=== PATIENT | female | born 1970 | race Caucasian/White ===

== ENCOUNTER 2016-08-31 09:22 | Inpatient (IN) | payer SELFPAY ==
[2016-08-31] VITALS (11 sets, daily range): BP systolic 131–205; BP diastolic 67–114; PULSE 87–121; RESP 14–32; TEMP 98.6–98.8; O2SAT 91–100
[~2016-08-31] VITALS: Ht 165.1 cm; Wt 75.5 kg
[~2016-08-31 09:22] MED LIST: AYGE5TAB PO
[2016-08-31] MEDS ORDERED: SODIUM CHLORIDE 0.9% FLUSH 10 ML FLUSH IVF PRN (09:30)
[2016-08-31] MEDS ORDERED: methylPREDNISolone SOD SUCC 125 MG/2 ML VIAL IVP ONE (09:30)
[2016-08-31] MEDS ORDERED: MORPHINE SULFATE 4 MG/ML INJ IV PUSH ONE (09:45)
[2016-08-31] MEDS ORDERED: ONDANSETRON HCL 4 MG/2 ML VIAL IV PUSH ONE (09:45)
--- NOTE | 2016-08-31 09:55 | PD ---
HPI . Respiratory distress Chief Complaint: Respiratory Distress Time Seen by Provider: 09:27 Travel History International Travel<30 days: No Contact w/Intl Traveler<30days: No Traveled to known affect area: No History of Present Illness HPI Patient presents by [facility] in respiratory distress. Her distress limits the ability to obtain an H&P. She does report acute respiratory distress that started this morning. She denies any chest pain. She denies any recent illness. She does admit to cocaine use yesterday. She denies any previous similar history. She has no known history of asthma, emphysema or congestive heart failure. [facility] Past Medical History Cardiovascular Problems: Yes (HTN) Hypertension: Yes Tetanus Vaccination: Unknown Influenza Vaccination: No ?: Not LMP: 08/31/16 Past Surgical History Section: Yes Social History Alcohol Use: No Tobacco Use: Yes Substance Use: Yes (COCAINE, LAST USE 08/30/16) Allergies-Medications (Allergen,Severity, Reaction): Coded Allergies: Penicillin (Verified Allergy, Intermediate, CHEST PAIN, 06/13/12) Reported Meds & Prescriptions Reported Meds & Active Scripts Active Aygestin (Norethindrone Acetate) 5 Mg Tab 5 Mg PO DAILY Review of Systems ROS Limitations: Clinical Condition Except as stated in HPI: all other systems reviewed are Neg General / Constitutional: No: Fever, Chills HENT: No: Headaches Cardiovascular: No: Chest Pain or Discomfort, Palpitations Respiratory: Positive: Shortness of Breath Gastrointestinal: Positive: Nausea, No: Vomiting Psychiatric: Positive: Substance Abuse Physical Exam Narrative GENERAL: Patient is pale, cool and clammy and in obvious respiratory distress. SKIN: Cool and clammy. HEAD: Atraumatic. Normocephalic. EYES: Pupils equal and round. Extraocular movements are intact. ENT: No nasal bleeding or discharge. Mucous membranes pink and moist. NECK: Trachea midline. Neck is supple. CARDIOVASCULAR: Tachycardic rate, regular rhythm. RESPIRATORY: Tachypneic. Only able to say one word between breaths. Diffuse expiratory wheezing. GASTROINTESTINAL: Abdomen soft, non-tender, nondistended. MUSCULOSKELETAL: No obvious deformities. No edema. NEUROLOGICAL: Awake and alert. No obvious cranial nerve deficits. Motor grossly within normal limits. Speech limited by respiratory distress. Data Data Last Documented VS Vital Signs Date Time Temp Pulse Resp B/P Pulse Ox O2 Delivery O2 Flow Rate FiO2 08/31/16 12:35 121 32 205/99 100 BiPAP 40 08/31/16 09:24 98.8 Orders Complete Blood Count With Diff (08/31/16 09:28) Comprehensive Metabolic Panel (08/31/16 09:28) B-Type Natriuretic Peptide (08/31/16 09:28) Magnesium (Mg) (08/31/16 09:28) Ckmb (Isoenzyme) Profile (08/31/16 09:28) Troponin I (08/31/16 09:28) Arterial Blood Gas (Abg) (08/31/16 09:28) Iv Access Insert/Monitor (08/31/16 09:28) Electrocardiogram (08/31/16:28) Ecg Monitoring (08/31/16:28) Oximetry (08/31/16:28) Oxygen Administration (08/31/16 09:28) Chest, Single Ap (08/31/16 09:28) Ct Pulmonary Angiogram (08/31/16 09:28) Urinary Catheter Insert/Apply (08/31/16 09:28) Sodium Chloride 0.9% Flush (Ns Flush) (08/31/16 09:30) Methylprednisolone So Succ Inj (Solumedr (08/31/16 09:30) Albuterol-Ipratropium Neb (Duoneb Neb) (08/31/16 09:30) Resp Bipap / Cpap Non Invas Vt (08/31/16 09:28) Ondansetron Inj (Zofran Inj) (08/31/16 09:45) Morphine Inj (Morphine Inj) (08/31/16 09:45) CKMB (08/31/16 09:49) CKMB% (08/31/16 09:49) Lactic Acid Sepsis Protocol (08/31/16 10:56) Blood Culture (08/31/16 10:56) Sputum Culture And Gram Stain (08/31/16 10:56) Ceftriaxone Inj (Rocephin Inj) (08/31/16 11:00) Azithromycin Inj (Zithromax Inj) (08/31/16 11:00) Iohexol 350 Inj (Omnipaque 350 Inj) (08/31/16 11:19) Sodium Chlor 0.9% 1000 Ml Inj (Ns 1000 M (08/31/16 12:30) Labs Laboratory Tests Test 08/31/16 08/31/16 08/31/16 09:49 10:50 11:15 White Blood Count 27.9 TH/MM3 Red Blood Count 4.54 MIL/MM3 Hemoglobin 13.4 GM/DL Hematocrit 40.2 % Mean Corpuscular Volume 88.5 FL Mean Corpuscular Hemoglobin 29.4 PG Mean Corpuscular Hemoglobin 33.3 % Concent Red Cell Distribution Width 13.5 % Platelet Count 362 TH/MM3 Mean Platelet Volume 8.8 FL Neutrophils (%) (Auto) 90.5 % Lymphocytes (%) (Auto) 3.2 % Monocytes (%) (Auto) 6.1 % Eosinophils (%) (Auto) 0.0 % Basophils (%) (Auto) 0.2 % Neutrophils # (Auto) 25.3 TH/MM3 Lymphocytes # (Auto) 0.9 TH/MM3 Monocytes # (Auto) 1.7 TH/MM3 Eosinophils # (Auto) 0.0 TH/MM3 Basophils # (Auto) 0.1 TH/MM3 CBC Comment AUTO DIFF Differential Total Cells 100 Counted Neutrophils % (Manual) 75 % Band Neutrophils % 14 % Lymphocytes % 4 % Monocytes % 6 % Neutrophils # (Manual) 25.1 TH/MM3 Myelocytes 1 % Differential Comment FINAL DIFF MANUAL Toxic Granulation 1+ Toxic Vacuolation PRESENT Platelet Estimate NORMAL Platelet Morphology Comment NORMAL Sodium Level 138 MEQ/L Potassium Level 3.4 MEQ/L Chloride Level 106 MEQ/L Carbon Dioxide Level 21.5 MEQ/L Anion Gap 11 MEQ/L Blood Urea Nitrogen 11 MG/DL Creatinine 1.12 MG/DL Estimat Glomerular Filtration 53 ML/MIN Rate Random Glucose 138 MG/DL Calcium Level 9.0 MG/DL Magnesium Level 2.0 MG/DL Total Bilirubin 0.2 MG/DL Aspartate Amino Transf 30 U/L (AST/SGOT) Alanine Aminotransferase 27 U/L (ALT/SGPT) Alkaline Phosphatase 70 U/L Total Creatine Kinase 627 U/L Creatine Kinase MB 4.4 NG/ML Creatine Kinase MB % 0.7 % Troponin I 0.08 NG/ML B-Type Natriuretic Peptide 25 PG/ML Total Protein 8.0 GM/DL Albumin 4.2 GM/DL Blood Gas Puncture Site LT BRACHIAL Blood Gas Patient Temperature 98.6 Blood Gas HCO3 22 mmol/L Blood Gas Base Excess -3.6 mmol/L Blood Gas Oxygen Saturation 98 % Arterial Blood pH 7.29 Arterial Blood Partial 48 mmHg Pressure CO2 Arterial Blood Partial 194 mmHG Pressure O2 Arterial Blood Oxygen Content 18.3 Vol % Arterial Blood 1.4 % Carboxyhemoglobin Arterial Blood Methemoglobin 0.4 % Blood Gas Hemoglobin 13.0 G/DL Oxygen Delivery Device BiPAP Blood Gas Ventilator Setting IPAP10/EPAP 5/60% Blood Gas Inspired Oxygen 60 % Lactic Acid Level 5.0 mmol/L MDM Medical Decision Making Medical Screen Exam Complete: Yes Emergency Medical Condition: Yes Medical Record Reviewed: Yes (review of medical records reveals no significant past medical history. She's been seen here once for dysmenorrhea.) Interpretation(s) EKG shows a sinus rhythm with a ventricular rate of 97. No ST segment elevation or depression. She has no old EKGs for comparison. Differential Diagnosis Differential diagnosis of dyspnea includes but is not limited to congestive heart failure, pneumonia, wheezing, pneumothorax, pulmonary embolism Narrative Course Patient presents to us via [facility] with respiratory distress. She was treated by [facility] with 3. They were unable to obtain IV access so she had not yet received Solu-Medrol prior to presentation. Patient was placed on BiPAP and has quickly improved. She has been given Solu- Medrol. She will be evaluated for possible pulmonary edema, PE, pneumonia, pneumothorax. 10:50 AM The patient has been weaned off of BiPAP and onto oxygen via facemask. Last Impressions Chest X-Ray 08/31/16927 Signed Impressions: Service Date/Time: Wednesday, August 31, 2016 10:04 - CONCLUSION: 1. Left lower lobe atelectasis versus pneumonia. Dereck Singleton MD The chest x-ray was independently viewed by me. CBC & BMP Diagram 08/31/16 09:49 CT for PE shows patchy airspace disease in the left lower lobe. She also has a trace pneumomediastinum and pneumothorax. The patient has not been able to tolerate coming off of BiPAP. Critical Care Narrative Aggregate critical care time was 60 minutes. Time to perform other separately billable procedures was not included in the critical care time. My time did not include minutes spent treating any other patients simultaneously or on activities that did not directly contribute to the patient's treatment. The services I provided to this patient were to treat and/or prevent clinically significant deterioration due to respiratory distress I provided critical care services requiring my management, as noted below: Chart data review, documentation time, medication orders and management, vital sign assessments/reviewing monitor data, ordering and reviewing lab tests, ordering and interpreting/reviewing x-rays and diagnostic studies, care of the patient and discussion of the patient with the admitting physicians Physician Communication Physician Communication The resident service will admit the patient but has asked that I consult the framing mechanic to help with her management. Diagnosis Primary Impression: Respiratory distress Additional Impressions: Pneumonia Qualified Code: J18.1 - Pneumonia of left lower lobe due to infectious organism Elevated troponin Pneumomediastinum Pneumothorax Qualified Code: J93.9 - Pneumothorax, unspecified type Admitting Information Admitting Physician Requests: Admit Condition: Ginna Preciado MD Aug 31, 2016 09:55
[2016-08-31] MEDS: RESP: ALBUTEROL 2.5 MG/IPRATROPIUM 0.5 MG NEB (SCH) INH (09:57)
[2016-08-31 10:20] LABS: AUTOMATED NEUTROPHIL # 25.3 TH/MM3 (1.8-7.7); BASOPHIL # 0.1 TH/MM3 (0-0.2); BASOPHIL % 0.2 % (0.0-2.0); HEMATOCRIT 40.2 % (35.0-46.0); LYMPH % 3.2 % (9.0-44.0); LYMPHOCYTE # 0.9 TH/MM3 (1.0-4.8); MEAN CELL VOLUME 88.5 FL (80.0-100.0); MEAN CORPUSCULAR HEMOGLOBIN 29.4 PG (27.0-34.0); MEAN CORPUSCULAR HGB CONC 33.3 % (32.0-36.0); MONO % 6.1 % (0.0-8.0); NEUT % 90.5 % (16.0-70.0); PLATELET COUNT 362 TH/MM3 (150-450); RED BLOOD COUNT 4.54 MIL/MM3 (4.00-5.30); RED CELL DISTRIBUTION WIDTH 13.5 % (11.6-17.2); WHITE BLOOD COUNT 27.9 TH/MM3 (4.0-11.0)
[2016-08-31 10:21] LABS: HEMO FLAGS AUTO DIFF
--- NOTE | 2016-08-31 10:37 | RADRPT ---
EXAM DATE/TIME: 08/31/2016 10:04 [facility] COMPARISON: No previous studies available for comparison. INDICATIONS : Shortness of breath, chest pain, cough, and nausea. MEDICAL HISTORY : None. SURGICAL HISTORY : None. ENCOUNTER: Initial ACUITY: 1 day PAIN SCORE: 3/10 LOCATION: Bilateral chest FINDINGS: The cardiac silhouette is normal in transverse diameter. The right lung is free of acute parenchymal opacity. There is left lower lobe atelectasis versus pneumonia. No pleural effusions are identified. CONCLUSION: 1. Left lower lobe atelectasis versus pneumonia. Dereck Singleton MD on August 31, 2016 at 10:34 Board Certified Radiologist. This report was verified electronically.
[2016-08-31 10:48] LABS: ALT (GPT) 27 U/L (10-53); ANION GAP 11 MEQ/L (5-15); AST (GOT) 30 U/L (15-37); BICARBONATE 21.5 MEQ/L (21.0-32.0); BLOOD UREA NITROGEN 11 MG/DL (7-18); CHLORIDE 106 MEQ/L (98-107); GLOMERULAR FILTRATION RATE 53 ML/MIN (>89); POTASSIUM 3.4 MEQ/L (3.5-5.1); SODIUM (NA) 138 MEQ/L (136-145)
[2016-08-31 10:51] LABS: ALKALINE PHOSPHATASE 70 U/L (45-117); CREATINE KINASE 627 U/L (26-192); TOTAL BILIRUBIN ADULT 0.2 MG/DL (0.2-1.0)
[2016-08-31 10:57] LABS: BLOOD GAS BASE EXCESS -3.6 mmol/L (-2-2); BLOOD GAS CARBOXYHEMOGLOBIN 1.4 % (0-4); BLOOD GAS HCO3 22 mmol/L (22-26); BLOOD GAS METHEMOGLOBIN 0.4 % (0-2); BLOOD GAS O2 HGB SATURATION 98 % (90-100); BLOOD GAS OXYGEN CONTENT 18.3 Vol % (12.0-20.0); BLOOD GAS PCO2 48 mmHg (38-42); BLOOD GAS PO2 194 mmHG (61-120); TEMP CORR TO 98.6
[2016-08-31 10:58] LABS: CRITICAL VALUE YES; OXYGEN DEVICE BiPAP
[2016-08-31 10:58] LABS: BANDS 14 % (0-6); MYELOCYTES 1 % (0-0); NEUTROPHIL # MANUAL DIFF 25.1 TH/MM3 (1.8-7.7); POLYS (SEG NEUTROPHILS) 75 % (16-70); WBC DIFF SAMPLE 100
[2016-08-31 10:59] LABS: PLATELET ESTIMATE SMEAR NORMAL (NORMAL); PLATELET MORPHOLOGY NORMAL (NORMAL); SCAN/DIFF FINAL DIFF MANUAL; TOXIC GRANULATION 1+ (NORMAL); TOXIC VACUOLATION PRESENT (NONE SEEN)
[2016-08-31 10:59] LABS: DRAW SITE LT BRACHIAL; FIO2 60 %; NUMBER OF ARTERIAL PUNCTURES 2; STAT YES; ULNAR PULSE PRESENT; VENT SETTINGS IPAP10/EPAP 5/60%
[2016-08-31] MEDS ORDERED: AZITHROMYCIN INJ 500 MG in SODIUM CHLOR 0.9% 250 ML INJ 250 ML IV ONE (11:00)
[2016-08-31] MEDS ORDERED: cefTRIAXone INJ 2,000 MG in SODIUM CHLORIDE 0.9% INJ 100 ML IV ONE (11:00)
[2016-08-31 11:04] LABS: CKMB 4.4 NG/ML (0.5-3.6)
[2016-08-31] MEDS ORDERED: IOHEXOL 350 MG/ML 10 ML VIAL (for RAD DIAG) IV ONE (11:19)
--- NOTE | 2016-08-31 12:13 | RADRPT ---
EXAM DATE/TIME: 08/31/2016 10:53 [facility] COMPARISON: No previous studies available for comparison. INDICATIONS : Severe shortness of breath . IV CONTRAST: 80 cc Omnipaque 350 (iohexol) IV RADIATION DOSE: 9.68 CTDIvol (mGy) MEDICAL HISTORY : Hypertension. SURGICAL HISTORY : section. ENCOUNTER: Initial ACUITY: 1 day PAIN SCALE: 5/10 LOCATION: Chest TECHNIQUE: Volumetric scanning of the chest was performed using a pulmonary embolism protocol MIP images were re constructed. Using automated exposure control and adjustment of the mA and/or kV according to patien t size, radiation dose was kept as low as reasonably achievable to obtain optimal diagnostic quality images. FINDINGS: There is a small pneumo mediastinum present and appears to originate in the chest, trace pneumothorax evident. Patchy air space disease is seen in both lungs worse on the left than the right. There is no axillary adenopathy. There is no mediastinal adenopathy. CONCLUSION: 1. Patchy air space disease on the left lower lobe. 2. Trace pneumo mediastinum and pneumothorax. Leonel Haynes MD FACR on August 31, 2016 at 11:30 Board Certified Radiologist. This report was verified electronically.
[2016-08-31] MEDS ORDERED: SODIUM CHLOR 0.9% 1000 ML INJ 1,000 ML IV ONE ×6 (12:30→16:45)
--- NOTE | 2016-08-31 13:09 | HHI.HP ---
HPI Service Family Medicine Primary Care Physician No Primary Care Physician Admission Diagnosis respiratory distress, pneumonia, pneumomediastinum, pneumothorax Diagnoses: International Travel<30 Days: No Contact w/Intl Traveler<30days: No Known Affected Area: No History of Present Illness //46 year old female with history of HTN and drug use. She woke up at 5am feeling short of breath. Cocaine and heroin use 08/30 evening, snorted it, doesn' t remember the time of use, she thinks it may have been laced with Fentanyl because it knocked her out. Her male roommate was using the same drugs and went to the hospital because he was 'out of it' at 5am this morning. She asserts she is withdrawing from heroin. She endorses back pain, headache, shortness of breath, and anxiety right now. She feels hot and cold. Pain does not radiate to chest, neck, jaw. No diarrhea. Endorses stiff neck. Never had pneumonia, never been intubated, no symptoms of URI including cough prior to this morning. She has had productive cough of yellow-green sputum since this morning. Does not use Ativan, has taken these in the past and thinks these "would not help at all" with current symptoms. She takes any opiate she can get her hands on, noting that she had Dilaudid. ( Martina Segovia MD R1) Review of Systems ROS Limitations: Clinical Condition (on Bipap, with anxiety), Intoxication Constitutional: DENIES: Fever, Chills Respiratory: COMPLAINS OF: Cough (productive yellow-green sputum), Wheezing, Sputum production, Shortness of breath, DENIES: Hemoptysis Cardiovascular: COMPLAINS OF: Syncope (08/30 evening), DENIES: Chest pain, Palpitations Gastrointestinal: DENIES: Diarrhea Integumentary: DENIES: Rash (Martina Segovia MD R1) Past Family Social History Past Medical History HTN - not on meds Past Surgical History C section x 2 Reported Medications None, stopped lisinopril one month ago (Martina Segovia MD R1) Allergies: Coded Allergies: Penicillin (Verified Allergy, Intermediate, CHEST PAIN, 06/13/12) Active Ordered Medications Inpatient Medications Albuterol/ Ipratropium (Duoneb Neb) 1 ampule Q15M INH Last administered on 08/31t 09:57; Start 08/31/16 at 09:30; Stop 08/31/16 at 10:01; Status DC Azithromycin/ Sodium Chloride (Zithromax Inj/ NS 250 ml Inj) 250 ml @ 250 mls/ hr ONCE ONCE IV Last administered on 08/31/16 13:31; Start 08/31/16 at 11:00 ; Stop 08/31/16 at 11:59; Status DC Aztreonam 2000 mg/ Sodium Chloride 100 ml @ 200 mls/hr Q8H IV ; Start 08/31/16 at 14:00 Ceftriaxone Sodium 2000 mg/ Sodium Chloride 100 ml @ 200 mls/hr ONCE ONCE IV Last administered on 08/31/16 11:32; Start 08/31/16 at 11:00; Stop 08/31/16 at 11:29; Status DC Dexmedetomidine HCl (Precedex Inj) 50 ml @ 0 mls/hr TITRATE IV ; Start 08/31/16 at 13:30 Enoxaparin Sodium (Lovenox Inj) 40 mg Q24H SQ ; Start 08/31/16 at 14:00 Hydromorphone HCl (Dilaudid Pf Inj) 1 mg ONCE ONCE IV PUSH ; Start 08/31/16 at 13:45; Stop 08/31/16 at 13:46 Hydromorphone HCl 0.5 mg 0.5 mg ONCE ONCE IV PUSH ; Start 08/31/16 at 13:15; Stop 08/31/16 at 13:17; Status DC Levofloxacin/ Dextrose 150 ml @ 100 mls/hr Q24H IV ; Start 08/31/16 at 15:00 Lorazepam (Ativan Inj) 0.5 mg ONCE ONCE IM ; Start 08/31/16 at 13:15; Stop at 13:16; Status DC Lorazepam 1 mg 1 mg ONCE ONCE IV PUSH ; Start 08/31/16 at 13:45; Stop 08/31/16 at 13:46 Methylprednisolone Sodium Succinate (SoluMEDROL INJ) 125 mg ONCE ONCE IVP Last administered on 08/31/16 09:51; Start 08/31/16 at 09:30; Stop 08/31/16 at 09:31; Status DC Metronidazole 100 ml @ 100 mls/hr Q8H IV ; Start 08/31/16 at 16:00 Morphine Sulfate 4 mg 4 mg ONCE ONCE IV PUSH Last administered on 08/31/16t 10 :05; Start 08/31/16 at 09:45; Stop 08/31/16 at 09:46; Status DC Naloxone HCl (Narcan Inj) 0.4 mg UNSCH PRN IV SEE LABEL COMMENTS; Start at 13:30 Ondansetron HCl (Zofran Inj) 4 mg ONCE ONCE IV PUSH Last administered on t 10:05; Start 08/31/16 at 09:45; Stop 08/31/16 at 09:46; Status DC Sodium Chloride (NS 1000 ml Inj) 1,000 ml @ 100 mls/hr Q10H IV ; Start at 13:45 Sodium Chloride (NS Flush) 2 ml BID IV FLUSH ; Start 08/31/16 at 21:00 Vancomycin HCl 1000 mg/Sodium Chloride 250 ml @ 250 mls/hr QUALITY SYSTEMS MANAGER IV ; Start 08/31/16 at 13:30; Stop 09/03/16 at 13:29 Family History Unable to obtain Social History Denies alcohol Cocaine, heroin - inhaled, last use 08/30 Dilaudid 2-3 8mg tablets per day - last use 08/28 Smokes cigars Lives with roommate in [place] (Martina Segovia MD R1) Physical Exam Vital Signs Vital Signs Date Time Temp Pulse Resp B/P Pulse Ox O2 Delivery O2 Flow Rate FiO2 08/31/16 12:35 121 32 205/99 100 BiPAP 40 08/31/16 11:32 116 19 163/76 99 BiPAP 08/31/16 11:18 100 40 08/31/16 09:45 99 BiPAP 60 08/31/16 09:43 96 60 08/31/16 09:33 109 28 96 BiPAP 60 08/31/16 09:24 98.8 118 28 180/114 91 Physical Exam GENERAL: This is a well-nourished, well-developed female in obvious distress on BiPap. Patient tenses up and relaxes often due to withdrawal. SKIN: Skin is dirty, no obvious trackmarks. Skin is cool, clammy. HEAD: Atraumatic. Normocephalic. No temporal or scalp tenderness. EYES: Pupils equal round and reactive. Extraocular motions intact. No scleral icterus. No injection or drainage. ENT: Nose without bleeding, purulent drainage or septal hematoma. Throat without erythema, tonsillar hypertrophy or exudate. Uvula midline. Airway patent. NECK: Trachea midline. No JVD or lymphadenopathy. Supple, nontender, no meningeal signs. CARDIOVASCULAR: Tachycardic rate, no obvious murmurs. RESPIRATORY: Breath sounds notable for diffuse wheezing through lung thomas. GASTROINTESTINAL: Abdomen soft, non-tender, nondistended. Normal bowel sounds. No hepato-splenomegaly, or palpable masses. No guarding. MUSCULOSKELETAL: Extremities without clubbing, cyanosis, or edema. No joint tenderness, effusion, or edema noted. No calf tenderness. Negative Homans sign bilaterally. NEUROLOGICAL: Awake and alert, agitated. Unable to perform full exam due to clinical condition. Laboratory Laboratory Tests Test 08/31/16 08/31/16 08/31/16 09:49 10:50 11:15 White Blood Count 27.9 Red Blood Count 4.54 Hemoglobin 13.4 Hematocrit 40.2 Mean Corpuscular Volume 88.5 Mean Corpuscular Hemoglobin 29.4 Mean Corpuscular Hemoglobin 33.3 Concent Red Cell Distribution Width 13.5 Platelet Count 362 Mean Platelet Volume 8.8 Neutrophils (%) (Auto) 90.5 Lymphocytes (%) (Auto) 3.2 Monocytes (%) (Auto) 6.1 Eosinophils (%) (Auto) 0.0 Basophils (%) (Auto) 0.2 Neutrophils # (Auto) 25.3 Lymphocytes # (Auto) 0.9 Monocytes # (Auto) 1.7 Eosinophils # (Auto) 0.0 Basophils # (Auto) 0.1 CBC Comment AUTO DIFF Differential Total Cells 100 Counted Neutrophils % (Manual) 75 Band Neutrophils % 14 Lymphocytes % 4 Monocytes % 6 Neutrophils # (Manual) 25.1 Myelocytes 1 Differential Comment FINAL DIFF MANUAL Toxic Granulation 1+ Toxic Vacuolation PRESENT Platelet Estimate NORMAL Platelet Morphology Comment NORMAL Sodium Level 138 Potassium Level 3.4 Chloride Level 106 Carbon Dioxide Level 21.5 Anion Gap 11 Blood Urea Nitrogen 11 Creatinine 1.12 Estimat Glomerular Filtration 53 Rate Random Glucose 138 Calcium Level 9.0 Magnesium Level 2.0 Total Bilirubin 0.2 Aspartate Amino Transf 30 (AST/SGOT) Alanine Aminotransferase 27 (ALT/SGPT) Alkaline Phosphatase 70 Total Creatine Kinase 627 Creatine Kinase MB 4.4 Creatine Kinase MB % 0.7 Troponin I 0.08 B-Type Natriuretic Peptide 25 Total Protein 8.0 Albumin 4.2 Blood Gas Puncture Site LT BRACHIAL Blood Gas Patient Temperature 98.6 Blood Gas HCO3 22 Blood Gas Base Excess -3.6 Blood Gas Oxygen Saturation 98 Arterial Blood pH 7.29 Arterial Blood Partial 48 Pressure CO2 Arterial Blood Partial 194 Pressure O2 Arterial Blood Oxygen Content 18.3 Arterial Blood 1.4 Carboxyhemoglobin Arterial Blood Methemoglobin 0.4 Blood Gas Hemoglobin 13.0 Oxygen Delivery Device BiPAP Blood Gas Ventilator Setting IPAP10/EPAP 5/60% Blood Gas Inspired Oxygen 60 Lactic Acid Level 5.0 Date/Time Procedure Status Source Growth 08/31/16 11:15 Aerobic Blood Culture Received Blood Peripheral Pending 08/31/16 11:15 Anaerobic Blood Culture Received Blood Peripheral Pending 08/31/16 11:00 Gram Stain - Final Resulted Sputum Expectorated Sputum 08/31/16 11:00 Sputum Culture Resulted Sputum Expectorated Sputum Pending (Martina Segovia MD R1) Result Diagram: 08/31/1649 08/31/1649 Imaging Last Impressions Chest X-Ray 08/31/16927 Signed Impressions: Service Date/Time: Monday, August 31, 2016 10:04 - CONCLUSION: 1. Left lower lobe atelectasis versus pneumonia. Dereck Singleton MD (Martina Segovia MD R1) Septic Shock Reassessment Heart: Regular rate and rhythm (tachycardia) Lungs: Other (diffuse wheezing) Skin: Cold Peripheral Pulses: Bounding Right Radial Bounding Left Radial Bounding Right Dorsalis Pedis Bounding Left Dorsalis Pedis Capillary Refill: <2 seconds (Martina Segovia MD R1) Assessment and Plan Assessment and Plan 46 year old female with history of drug use presenting with respiratory distress , meeting septic criteria. CTA on admission Code Status Full Code Discussed Condition With SDW Dr. Pacheco, Dr. Gee (Martina Segovia MD R1) Attending Attestation THIS CASE WAS DISCUSSED WITH THE RESIDENT PHYSICIANS. I HAVE REVIEWED THE RECORD AND AGREE WITH THE ABOVE NOTE AND PLAN OF CARE WAS DISCUSSED. I HAVE AUTHORIZED THE ORDER FOR ADMISSION TO AN IN-PATIENT STATUS. (Huang Pacheco MD) Problem List: (1) Sepsis Status: Acute Plan: Meeting sepsis criteria by vital signs, severe sepsis by lactate 5.0, mild THOR. Source identified on CT --> PNA, possible septicemia as well, blood cultures ordered. -Rocephin + Azithromycin x 1 in ED -Will begin broad spectrum antibiotics - Vanc, Levaquin, Flagyl, Aztreonam -UA, UDS orderd; urine culture if indicated -Bankruptcy Manager consulted, Dr. Verma evaluated patient in ED, will place patient in MICU for close monitoring (2) Pneumonia Status: Acute Plan: CXR significant for LLL atelectasis vs. PNA. CTA ordered showing patchy airspace disease in LLL, trace pneumomediastinum and PTX. -Management as above (3) Reactive airway disease Status: Acute Plan: No significant respiratory history. Strong family history of asthma. Plan as follows: -Duonebs q4hr -Albuterol PRN wheezing, sob -Solumedrol iv 60mg q6hr -Antibiotics as above -On Bipap in ED, unable to wean, security test engineer will titrate PRN, may require intubation (4) Pneumomediastinum Status: Acute Plan: -Management as above for Reactive Airway Disease. (5) Pneumothorax Status: Acute Plan: -Management as above for Reactive Airway Disease. (6) Polysubstance abuse Status: Acute Plan: History of drug use chronic drug use. Reports Dilaudid 8-24mg 08/28, cocaine use 08/30, heroin use 08/30. She passed out after snorting the latter two substances last night, possibly laced. -Ativan q2hr PRN agitation -CIWA protocol -Precedex ordered per Bankruptcy Manager, should manage BP and withdrawal symptoms (7) Elevated troponin Status: Acute Plan: Troponin 0.08 on admission. Differential includes ACS, arrhythmia, coronary artery vasospasm, HTN, hypoperfusion, rhabdomyolysis, PE, sepsis. CTA negative for PE. EKG showing sinus tachycardia. -Telemetry -Trend troponin, CK, EKGs (8) Hypertension Status: Chronic Plan: Reports chronic HTN, was on lisinopril but stopped one month. -Precedex for now given withdrawal -Transition to other meds once weaned off (9) Elevated CK Status: Acute Plan: Acute elevated likely related to prolonged immobilization after drug use , hypoperfusion. Receiving 3L bolus. -Continue NS at 150cc/hr -Trend CK (10) Fluids/Electrolytes/Nutrition/Prophylaxis Status: Acute Plan: Fluids: NS @ 150 cc/hr Electrolytes: monitor and replete as needed DVT Prophylaxis: Lovenox 40mg subQ q24hr/bilateral SCDs GI Prophylaxis: PPI IV daily (Martina Segovia MD R1) Physician Certification 2 Midnight Certification Type: Admission for Inpatient Services Order for Inpatient Services The services are ordered in accordance with Medicare regulations or non- Medicare payer requirements, as applicable. In the case of services not specified as inpatient-only, they are appropriately provided as inpatient services in accordance with the 2-midnight benchmark. Estimated LOS (days): 3 days is the estimated time the patient will need to remain in the hospital, assuming treatment plan goals are met and no additional complications. Post-Hospital Plan: Not yet determined (Martina Segovia MD R1) Problem Qualifiers (1) Pneumonia: Qualified Code: J18.1 - Pneumonia of left lower lobe due to infectious organism (2) Pneumothorax: Qualified Code: J93.9 - Pneumothorax, unspecified type Martina Segovia MD R1 Aug 31, 2016 13:09 Huang Pacheco MD Aug 31, 2016 14:46
[2016-08-31] MEDS ORDERED: HYDROmorphone HCL PF 1 MG/ML VIAL IV PUSH ONE ×2 (13:15→13:45)
[2016-08-31] MEDS ORDERED: LORazepam 2 MG/ML VIAL IM ONE (13:15)
[2016-08-31] MEDS ORDERED: NALOXONE HCL 0.4 MG/ML AMP IV PRN (13:30)
[2016-08-31] MEDS ORDERED: SODIUM CHLORIDE 0.9% FLUSH 10 ML FLUSH IV FLUSH PRN (13:30)
[2016-08-31] MEDS ORDERED: DEXMEDETOMIDINE INJ 50 ML IV SCH (13:30)
[2016-08-31] MEDS ORDERED: VANCOMYCIN INJ 1,000 MG in SODIUM CHLOR 0.9% 250 ML INJ 250 ML IV SCH (13:30)
[2016-08-31 13:37] LABS: LACTIC ACID GHOST NOT REPORTABLE
[2016-08-31] MEDS ORDERED: SODIUM CHLOR 0.9% 1000 ML INJ 1,000 ML IV SCH ×2 (13:45→14:00)
[2016-08-31] MEDS ORDERED: LORazepam 2 MG/ML VIAL IV PUSH ONE (13:45)
[2016-08-31] MEDS ORDERED: LORazepam 2 MG TAB PO PRN (14:00)
[2016-08-31] MEDS ORDERED: RESP: ALBUTEROL 2.5 MG/IPRATROPIUM 0.5 MG NEB (PRN) INH (14:00)
[2016-08-31] MEDS ORDERED: LORazepam 1 MG TAB PO PRN (14:00)
[2016-08-31] MEDS ORDERED: LORazepam 2 MG/ML VIAL IV PUSH PRN ×3 (14:00)
[2016-08-31] MEDS ORDERED: RESP: ALBUTEROL 1.25 MG/3 ML NEB (PRN) NEB (14:00)
[2016-08-31] MEDS ORDERED: FLUMAZENIL 0.5 MG/5 ML VIAL IV PUSH PRN (14:00)
[2016-08-31] MEDS ORDERED: AZTREONAM INJ 2,000 MG in SODIUM CHLORIDE 0.9% INJ 100 ML IV SCH (14:00)
[2016-08-31] MEDS ORDERED: RESP: ALBUTEROL 2.5 MG/IPRATROPIUM 0.5 MG NEB (SCH) NEB ×2 (14:00→16:00)
--- NOTE | 2016-08-31 14:00 | PD.CONS ---
[facility] Service Critical Care Medicine Consult Requested By Dr. Myers Reason for Consult Acute hypoxemic and hypercarbic respiratory failure Acute asthma/COPD exacerbation Left lower lobe pneumonia Severe sepsis Small pneumomediastinum and trace L pneumothorax Lactic acidosis Polydrug abuse Primary Care Physician No Primary Care Physician History of Present Illness Patient is a 46-year-old female with history of hypertension not on medication and polysubstance abuse who presented to the emergency department in acute severe respiratory distress. She presented with hypoxemia tachycardia and hypertension impending respiratory arrest and was emergently placed on BiPAP by the ER physician. Received 125 mg of Solu-Medrol and [id number] breathing treatments. Slightly improved on BiPAP but continues to be tachypneic with bilateral wheezing. History obtained by [facility] states that she woke up at 5 AM short of breath.She admits to snorting Cocaine and heroin 08/30 evening, and thinks thinks it may have been laced with Fentanyl. She also reports productive cough of yellow-green sputum since this morning. I evaluated the patient in the ED. She has just received 0.5 mg, Ativan and 0.5 mg of Dilaudid. Patient sees anxious tachypneic and tachycardic on the BiPAP. She has bilateral significant wheezing. Received multiple [id number] breathing treatments with DuoNeb so far. I have explained to her that if she is not improving the next 1 hour she'll require endotracheal intubation and mechanical ventilation. Note that her lactic acid was 5 on admission, he received 2 L Ns bolus, repeat lactic acid came back at 6.9. Chest x-ray showed left lower lobe pneumonia. CT chest showed left lower lobe infiltrate, small pneumomediastinum, trace left pneumothorax Review of Systems ROS Limitations: Clinical Condition Past Family Social History Allergies: Coded Allergies: Penicillin (Verified Allergy, Intermediate, CHEST PAIN, 06/13/12) Past Medical History Hypertension stopped lisinopril a month ago Past Surgical History 2 Reported Medications Lisinopril was stopped by self a month ago Active Ordered Medications Reviewed Family History Father and sister has asthma Social History Uses inhaled Cocaine, heroin, last use 08/30, though smoked crack cocaine yesterday Dilaudid 2-3 8mg tablets per day - last use 08/28, she claims that she snorts Smokes cigars Physical Exam Vital Signs Vital Signs Date Time Temp Pulse Resp B/P Pulse Ox O2 Delivery O2 Flow Rate FiO2 08/31/16 12:35 121 32 205/99 100 BiPAP 40 08/31/16 11:32 116 19 163/76 99 BiPAP 08/31/16 11:18 100 40 08/31/16 09:45 99 BiPAP 60 08/31/16 09:43 96 60 08/31/16 09:33 109 28 96 BiPAP 60 08/31/16 09:24 98.8 118 28 180/114 91 Physical Exam GENERAL: This is a well-nourished, well-developed female in acute distress on BiPap. Hypertensive tachycardic SKIN: Skin is cool and dry HEAD: Atraumatic. Normocephalic. . EYES: Pupils equal round and reactive. Extraocular motions intact. ENT: BiPAP mask limits exam NECK: Trachea midline. No JVD or lymphadenopathy. S CARDIOVASCULAR: Tachycardic rate, no obvious murmurs. RESPIRATORY: Severe bilateral expiratory wheezing. GASTROINTESTINAL: Abdomen soft, non-tender, nondistended. MUSCULOSKELETAL: Extremities without clubbing, cyanosis, or edema. NEUROLOGICAL: Awake and alert. Moves all extremities follows commands Laboratory Laboratory Tests Test 08/31/16 08/31/16 08/31/16 09:49 10:50 11:15 White Blood Count 27.9 Red Blood Count 4.54 Hemoglobin 13.4 Hematocrit 40.2 Mean Corpuscular Volume 88.5 Mean Corpuscular Hemoglobin 29.4 Mean Corpuscular Hemoglobin 33.3 Concent Red Cell Distribution Width 13.5 Platelet Count 362 Mean Platelet Volume 8.8 Neutrophils (%) (Auto) 90.5 Lymphocytes (%) (Auto) 3.2 Monocytes (%) (Auto) 6.1 Eosinophils (%) (Auto) 0.0 Basophils (%) (Auto) 0.2 Neutrophils # (Auto) 25.3 Lymphocytes # (Auto) 0.9 Monocytes # (Auto) 1.7 Eosinophils # (Auto) 0.0 Basophils # (Auto) 0.1 CBC Comment AUTO DIFF Differential Total Cells 100 Counted Neutrophils % (Manual) 75 Band Neutrophils % 14 Lymphocytes % 4 Monocytes % 6 Neutrophils # (Manual) 25.1 Myelocytes 1 Differential Comment FINAL DIFF MANUAL Toxic Granulation 1+ Toxic Vacuolation PRESENT Platelet Estimate NORMAL Platelet Morphology Comment NORMAL Sodium Level 138 Potassium Level 3.4 Chloride Level 106 Carbon Dioxide Level 21.5 Anion Gap 11 Blood Urea Nitrogen 11 Creatinine 1.12 Estimat Glomerular Filtration 53 Rate Random Glucose 138 Calcium Level 9.0 Magnesium Level 2.0 Total Bilirubin 0.2 Aspartate Amino Transf 30 (AST/SGOT) Alanine Aminotransferase 27 (ALT/SGPT) Alkaline Phosphatase 70 Total Creatine Kinase 627 Creatine Kinase MB 4.4 Creatine Kinase MB % 0.7 Troponin I 0.08 B-Type Natriuretic Peptide 25 Total Protein 8.0 Albumin 4.2 Blood Gas Puncture Site LT BRACHIAL Blood Gas Patient Temperature 98.6 Blood Gas HCO3 22 Blood Gas Base Excess -3.6 Blood Gas Oxygen Saturation 98 Arterial Blood pH 7.29 Arterial Blood Partial 48 Pressure CO2 Arterial Blood Partial 194 Pressure O2 Arterial Blood Oxygen Content 18.3 Arterial Blood 1.4 Carboxyhemoglobin Arterial Blood Methemoglobin 0.4 Blood Gas Hemoglobin 13.0 Oxygen Delivery Device BiPAP Blood Gas Ventilator Setting IPAP10/EPAP 5/60% Blood Gas Inspired Oxygen 60 Lactic Acid Level 5.0 Date/Time Procedure Status Source Growth 08/31/16 11:15 Aerobic Blood Culture Received Blood Peripheral Pending 08/31/16 11:15 Anaerobic Blood Culture Received Blood Peripheral Pending 08/31/16 11:00 Gram Stain - Final Resulted Sputum Expectorated Sputum 08/31/16 11:00 Sputum Culture Resulted Sputum Expectorated Sputum Pending Result Diagram: 08/31/1649 08/31/[address] chest LLL pneumonia, small pneumomediastinum, tiny pneumothorax on the left Septic Shock Reassessment Heart: Irregular Lungs: Course Skin: Warm Peripheral Pulses: Bounding Right Radial Bounding Left Radial Assessment and Plan Assessment and Plan NEURO: Polysubstance abuse with snorting cocaine, Dilaudid, also smoking crack cocaine Anxiety/withdrawal -Place on Precedex. Use when necessary Ativan and minimus opiates -Watch closely for withdrawal/seizures RESP: Acute hypoxemic and hypercarbic respiratory failure Acute asthma exacerbation Left lower lobe pneumonia Tiny left pneumothorax small pneumomediastinum -BiPAP 12 over 5. I've explained to the patient clearly that if she does not improve in the next 1 hour she will need endotracheal intubation and mechanical ventilation -DuoNeb every 3 hours scheduled and every 2 hours when necessary -Received 125 mg IV Solu-Medrol, continue 60 mg IV every 6 hours -Broad spectrum ABX with Azactam, Flagyl, Levaquin and single dose of vancomycin -CT imaging does not suggest Crack lung CV: Lactic acidosis Hypertension/tachycardia/probable withdrawal -Normal saline IV fluids 2L bolus and 125 ml per hour -Serial Lactic acid -Cycle cardiac enzymes GI: -NPO. IV Protonix : -Monitor renal function closely. Oliver catheter. IV hydration as above ID: Severe sepsis Left lower lobe pneumonia -IV vancomycin x1. Patient is penicillin allergic. Started on Azactam 2 g IV every 8 hours, Flagyl 500 mg IV every 8 hours and Levaquin 750 mg IV every 24 hours -Follow up on blood and sputum cultures HEME: -Monitor CBC, CMP, coags ENDO: Hypokalemia -Electrolyte replacement per protocol -Sliding-scale insulin if needed PROPH: -Bilateral lower extremity SCDs. Lovenox for DVT prophylaxis. Protonix for GI prophylaxis LINES: -Utilize peripheral IVs, central line if needed CC time 85 min Code Status Full Discussed Condition With Dr. Myers and Justa Adams MD Aug 31, 2016 14:00
[2016-08-31] MEDS ORDERED: MAGNESIUM OXIDE 400 MG TAB PO PRN (14:30)
[2016-08-31] MEDS ORDERED: POTASSIUM PHOSPHATE MONOBASIC 500 MG TAB PO/TUBE PRN (14:30)
[2016-08-31] MEDS ORDERED: POTASSIUM PHOSPHATE MONOBASIC 500 MG TAB PO PRN (14:30)
[2016-08-31] MEDS ORDERED: POTASSIUM CHLOR 40 MEQ PREMIX 100 ML IV PRN (14:30)
[2016-08-31] MEDS ORDERED: MAGNESIUM SULFATE INJ 4 GM in SODIUM CHLORIDE 0.9% INJ 92 ML IV PRN (14:30)
[2016-08-31] MEDS ORDERED: SODIUM PHOSPHATE INJ 30 MMOL in SODIUM CHLOR 0.9% 250 ML INJ 240 ML IV PRN (14:30)
[2016-08-31] MEDS ORDERED: POTASSIUM CHLOR 20 MEQ PREMIX 100 ML IV PRN ×2 (14:30)
[2016-08-31] MEDS ORDERED: MAGNESIUM SULFATE INJ 2 GM in SODIUM CHLORIDE 0.9% INJ 96 ML IV PRN (14:30)
--- NOTE | 2016-08-31 14:45 | HHI.HP ---
HPI Service Family Medicine Primary Care Physician No Primary Care Physician Admission Diagnosis respiratory distress, pneumonia, pneumomediastinum, pneumothorax Diagnoses: (1) Sepsis (2) Pneumonia (3) Reactive airway disease (4) Pneumomediastinum (5) Pneumothorax (6) Polysubstance abuse (7) Elevated troponin (8) Hypertension (9) Elevated CK (10) Fluids/Electrolytes/Nutrition/Prophylaxis International Travel<30 Days: No Contact w/Intl Traveler<30days: No Known Affected Area: No History of Present Illness 46-year-old female presenting to the hospital with respiratory distress. She has a history of polysubstance abuse including snorting heroin, smoking crack cocaine, and snorting opiates. She states that yesterday she had taken an unknown amount of Dilaudid, smoked crack cocaine, and snorted heroin at home with her roommate and roommate's friend. She then "passed out" and woke up this morning. Her roommate's friend appeared to be altered and confused and this caused her to become very agitated. She feels that the heroin that she started may have been laced with another medication, maybe fentanyl. She endorses back pain, she endorses headaches, she endorses significant shortness of breath and inability to catch her breath associated with a cough productive of yellow/green sputum. She also is very anxious at this time. She denies any emesis, she denies any neck pain, denies any fevers or chills at this time. She adamantly denies injecting any medications IV. She was treated with 3 breathing treatments in route to the hospital via [facility] without any improvement of her shortness of breath or wheezing. She was placed on BiPAP in the emergency department by the ER physician and received 125 mg of Solu-Medrol associated with another breathing treatment that has not improved her respiratory status. Review of Systems ROS Limitations: Clinical Condition Constitutional: COMPLAINS OF: Diaphoretic episodes, DENIES: Fever, Chills Respiratory: COMPLAINS OF: Cough, Wheezing, Sputum production, Shortness of breath Cardiovascular: COMPLAINS OF: Chest pain, Dyspnea on Exertion, DENIES: Palpitations, Lower Extremity Edema Gastrointestinal: COMPLAINS OF: Nausea, DENIES: Abdominal pain, Vomiting, Difficulty Swallowing Musculoskeletal: DENIES: Joint pain Past Family Social History Past Medical History HTN - not on meds Past Surgical History C section x 2 Allergies: Coded Allergies: Penicillin (Verified Allergy, Intermediate, CHEST PAIN, 06/13/12) Family History Unable to obtain Social History Denies alcohol Cocaine, heroin - inhaled, last use 08/30 Dilaudid 2-3 8mg tablets per day - last use 08/28 Smokes cigars Lives with roommate in [place] Physical Exam Vital Signs Vital Signs Date Time Temp Pulse Resp B/P Pulse Ox O2 Delivery O2 Flow Rate FiO2 08/31/16 14:09 115 32 169/87 95 BiPAP 40 08/31/16 14:09 BiPAP 40 08/31/16 12:35 121 32 205/99 100 BiPAP 40 08/31/16 11:32 116 19 163/76 99 BiPAP 08/31/16 11:18 100 40 08/31/16 09:45 99 BiPAP 60 08/31/16 09:43 96 60 08/31/16 09:33 109 28 96 BiPAP 60 08/31/16 09:24 98.8 118 28 180/114 91 Physical Exam GENERAL: This is a well-nourished, well-developed female in acute distress on BiPap. Hypertensive tachycardic SKIN: Skin is cool and dry HEAD: Atraumatic. Normocephalic. . EYES: Pupils equal round and reactive. Extraocular motions intact. ENT: BiPAP mask limits exam NECK: Trachea midline. No JVD or lymphadenopathy. CARDIOVASCULAR: Tachycardic rate, no obvious murmurs. RESPIRATORY: Severe bilateral expiratory wheezing with moderate air exchange GASTROINTESTINAL: Abdomen soft, non-tender, nondistended. MUSCULOSKELETAL: Extremities without clubbing, cyanosis, or edema. NEUROLOGICAL: Awake and alert. Moves all extremities follows commands Laboratory Laboratory Tests Test 08/31/16 08/31/16 08/31/16 08/31/16 09:49 10:50 11:15 13:27 White Blood Count 27.9 Red Blood Count 4.54 Hemoglobin 13.4 Hematocrit 40.2 Mean Corpuscular Volume 88.5 Mean Corpuscular Hemoglobin 29.4 Mean Corpuscular Hemoglobin 33.3 Concent Red Cell Distribution Width 13.5 Platelet Count 362 Mean Platelet Volume 8.8 Neutrophils (%) (Auto) 90.5 Lymphocytes (%) (Auto) 3.2 Monocytes (%) (Auto) 6.1 Eosinophils (%) (Auto) 0.0 Basophils (%) (Auto) 0.2 Neutrophils # (Auto) 25.3 Lymphocytes # (Auto) 0.9 Monocytes # (Auto) 1.7 Eosinophils # (Auto) 0.0 Basophils # (Auto) 0.1 CBC Comment AUTO DIFF Differential Total Cells 100 Counted Neutrophils % (Manual) 75 Band Neutrophils % 14 Lymphocytes % 4 Monocytes % 6 Neutrophils # (Manual) 25.1 Myelocytes 1 Differential Comment FINAL DIFF MANUAL Toxic Granulation 1+ Toxic Vacuolation PRESENT Platelet Estimate NORMAL Platelet Morphology Comment NORMAL Sodium Level 138 Potassium Level 3.4 Chloride Level 106 Carbon Dioxide Level 21.5 Anion Gap 11 Blood Urea Nitrogen 11 Creatinine 1.12 Estimat Glomerular Filtration 53 Rate Random Glucose 138 Calcium Level 9.0 Magnesium Level 2.0 Total Bilirubin 0.2 Aspartate Amino Transf 30 (AST/SGOT) Alanine Aminotransferase 27 (ALT/SGPT) Alkaline Phosphatase 70 Total Creatine Kinase 627 Creatine Kinase MB 4.4 Creatine Kinase MB % 0.7 Troponin I 0.08 B-Type Natriuretic Peptide 25 Total Protein 8.0 Albumin 4.2 Blood Gas Puncture Site LT BRACHIAL Blood Gas Patient Temperature 98.6 Blood Gas HCO3 22 Blood Gas Base Excess -3.6 Blood Gas Oxygen Saturation 98 Arterial Blood pH 7.29 Arterial Blood Partial 48 Pressure CO2 Arterial Blood Partial 194 Pressure O2 Arterial Blood Oxygen Content 18.3 Arterial Blood 1.4 Carboxyhemoglobin Arterial Blood Methemoglobin 0.4 Blood Gas Hemoglobin 13.0 Oxygen Delivery Device BiPAP Blood Gas Ventilator Setting IPAP10/EPAP 5/60% Blood Gas Inspired Oxygen 60 Lactic Acid Level 5.0 6.9 Date/Time Procedure Status Source Growth 08/31/16 11:15 Aerobic Blood Culture Received Blood Peripheral Pending 08/31/16 11:15 Anaerobic Blood Culture Received Blood Peripheral Pending 08/31/16 11:00 Gram Stain - Final Resulted Sputum Expectorated Sputum 08/31/16 11:00 Sputum Culture Resulted Sputum Expectorated Sputum Pending Result Diagram: 08/31/1649 08/31/1649 Imaging Last Impressions Chest X-Ray 08/31/1628 Signed Impressions: Service Date/Time: Wednesday, August 31, 2016 10:04 - CONCLUSION: 1. Left lower lobe atelectasis versus pneumonia. Dereck Singleton MD CT pulmonary angiogram: Patchy airspace disease in the left lower lobe with trace pneumomediastinum and trace pneumothorax Septic Shock Reassessment Heart: Other (tachycardic) Lungs: Course, Other (wheezing) Skin: Warm, [place] Peripheral Pulses: Bounding Right Radial Bounding Left Radial Capillary Refill: Brisk Assessment and Plan Assessment and Plan 46 year old female with history of drug use presenting with respiratory distress , meeting septic criteria. CTA on admission Problem List: (1) Sepsis Status: Acute Plan: Meeting sepsis criteria by vital signs, severe sepsis by lactate 5.0, mild THOR. Source identified on CT --> PNA, possible septicemia as well, blood cultures ordered. IV antibiotics recommended by critical care as below: - Azactam 2 g IV every 8 hours - Vancomycin 1 - Flagyl 500 mg IV every 8 hours - Levaquin 750 mg IV every 24 hours Received Rocephin and azithromycin 1 in the emergency department Blood cultures drawn and pending Sputum cultures ordered by critical care UA, UDS orderd; urine culture if indicated Serial lactic acid after bolus and initiation of antibiotics Has 3 L normal saline IV bolus ordered Monitor renal function closely Monitor on telemetry and vital signs every 4 hours -Pattern Illustrator consulted, Dr. Verma evaluated patient in ED, will place patient in MICU for close monitoring (2) Pneumonia Status: Acute Plan: CXR significant for LLL atelectasis vs. PNA. CTA ordered showing patchy airspace disease in LLL, trace pneumomediastinum and PTX. -Management as above for sepsis (3) Reactive airway disease Status: Acute Plan: Significant amount of wheezing on exam with restricted airflow Medical management as below: -Duonebs q3hr -Albuterol PRN wheezing, sob -Solumedrol iv 60mg q6hr -Antibiotics as above -On Bipap in ED, unable to wean, tip printer will titrate PRN, may require intubation (4) Pneumomediastinum Status: Acute Plan: -Management as above for Reactive Airway Disease. (5) Pneumothorax Status: Acute Plan: -Management as above for Reactive Airway Disease. (6) Polysubstance abuse Status: Acute Plan: History of drug use chronic drug use. Reports Dilaudid 8-24mg 08/28, cocaine use 08/30, heroin use 08/30. She passed out after snorting the latter two substances last night, possibly laced. -Ativan q2hr PRN agitation -CIWA protocol -Precedex ordered per Pattern Illustrator, should manage BP and withdrawal symptoms (7) Elevated troponin Status: Acute Plan: Troponin 0.08 on admission. Differential includes ACS, arrhythmia, coronary artery vasospasm, HTN, hypoperfusion, rhabdomyolysis, PE, sepsis. CTA negative for PE. EKG showing sinus tachycardia. -Telemetry -Trend troponin, CK, EKGs (8) Hypertension Status: Chronic Plan: Reports chronic HTN, was on lisinopril but stopped one month. -Precedex for now given withdrawal -Transition to other meds once weaned off (9) Elevated CK Status: Acute Plan: Acute elevated likely related to prolonged immobilization after drug use , hypoperfusion. Receiving 3L bolus. -Continue NS at 150cc/hr -Trend CK (10) Fluids/Electrolytes/Nutrition/Prophylaxis Status: Acute Plan: Fluids: NS @ 125 cc/hr Electrolytes: monitor and replete as needed DVT Prophylaxis: Lovenox 40mg subQ q24hr/bilateral SCDs GI Prophylaxis: PPI IV daily Physician Certification 2 Midnight Certification Type: Admission for Inpatient Services Order for Inpatient Services The services are ordered in accordance with Medicare regulations or non- Medicare payer requirements, as applicable. In the case of services not specified as inpatient-only, they are appropriately provided as inpatient services in accordance with the 2-midnight benchmark. Estimated LOS (days): 2 2 days is the estimated time the patient will need to remain in the hospital, assuming treatment plan goals are met and no additional complications. Post-Hospital Plan: Not yet determined Problem Qualifiers (1) Pneumonia: Qualified Code: J18.1 - Pneumonia of left lower lobe due to infectious organism (2) Pneumothorax: Qualified Code: J93.9 - Pneumothorax, unspecified type Huang Pacheco MD Aug 31, 2016 14:45
[2016-08-31] MEDS ORDERED: ETOMIDATE 20 MG/10 ML VIAL ONE (15:31)
[2016-08-31] MEDS ORDERED: ROCURONIUM INJ 50 MG/5 ML VIAL ONE (15:32)
[2016-08-31] MEDS ORDERED: MIDAZOLAM HCL 5 MG/ML VIAL (1 ML) ONE ×3 (15:32→15:34)
[2016-08-31] MEDS ORDERED: MIDAZOLAM 100 MG/ML INJ 100 ML IV SCH (15:45)
--- NOTE | 2016-08-31 15:53 | PD.PROCEDR ---
Procedure Note Procedure After the risks and benefits were discussed the following procedure was performed: INTUBATION: The patient was put in optimal position for the procedure. Rapid sequence intubation was initiated by me using 20 milligrams of etomidate IV and 10 milligrams of Versed IV and NM paralysis with 50 mg IV rocuronium. DL with Mac 3 blade Grade 2 a view single attempt. The patient was intubated with a 7.5 cuffed endotracheal tube. Tube placement was confirmed by visualization of the tube and balloon passing through the cords, capnometry and subsequent chest x- ray. Breath sounds were equal and well aerated bilaterally postintubation. No breath sounds over stomach. Patient tolerated procedure well. Justa Verma MD Aug 31, 2016 15:53
[2016-08-31] MEDS ORDERED: methylPREDNISolone SOD SUCC 125 MG/2 ML VIAL IV PUSH SCH (16:00)
[2016-08-31 16:06] LABS: BLOOD GAS BASE EXCESS -6.7 mmol/L (-2-2); BLOOD GAS CARBOXYHEMOGLOBIN 0.9 % (0-4); BLOOD GAS HCO3 21 mmol/L (22-26); BLOOD GAS METHEMOGLOBIN 1.1 % (0-2); BLOOD GAS O2 HGB SATURATION 98 % (90-100); BLOOD GAS OXYGEN CONTENT 18.3 Vol % (12.0-20.0); BLOOD GAS PCO2 59 mmHg (38-42); BLOOD GAS PO2 319 mmHg (61-120); BLOOD GAS TOTAL HGB 12.8 G/DL (12.0-16.0); OXYGEN DEVICE BIPAP; TEMP CORR TO 98.6
[2016-08-31 16:07] LABS: DRAW SITE RT BRACHIAL; FIO2 80 %; NUMBER OF ARTERIAL PUNCTURES 1; STAT YES; ULNAR PULSE PRESENT; VENT SETTINGS IPAP+12/EPAP+5
--- NOTE | 2016-08-31 16:13 | PD.PROCEDR ---
Central Line Procedure REASON FOR PROCEDURE Central venous access PROCEDURE PERFORMED Central line placement: R subclavian central line CONSENT Procedure done as emergency ANESTHESIA Local injection of 1% Lidocaine DESCRIPTION OF THE PROCEDURE The patient was placed in supine, mild Trendelenburg position. The area was exposed and cleansed with ChloraPrep, times two. Large sterile drape was used to cover the patient, with the site exposed, under sterile conditions including cap, face mask, sterile gown, and sterile gloves. On single attempt, the introducer needle was inserted with negative pressure in syringe and venous flash was obtained. The guide wire was then advanced without any restriction and the needle was removed. The dilator was used without any complications. Using Seldinger technique the 20 cm 7F triple lumen catheter was advanced over the guide wire to a depth of 18 centimeters. The guide wire was removed. All ports were aspirated with dark venous blood return and flushed easily with sterile saline. All ports were capped. Antibiotic disc was placed around central line at puncture site. The central line was secured to the skin with two interrupted 2.0 silk sutures. The area was bandaged with sterile see- through central line bandage. COMPLICATIONS: No apparent complications ESTIMATED BLOOD LOSS: Less than 1 cc. Justa Verma MD Aug 31, 2016 16:13
[2016-08-31] MEDS ORDERED: Vancomycin Consult Pharmacy 1 EA OTHER SCH (16:15)
--- NOTE | 2016-08-31 16:40 | RADRPT ---
EXAM DATE/TIME: 08/31/2016 16:11 [facility] COMPARISON: CHEST SINGLE AP, August 31, 2016, 10:04. INDICATIONS : Intubation and central line placement. MEDICAL HISTORY : Hypertension. SURGICAL HISTORY : None. ENCOUNTER: Subsequent ACUITY: 1 day PAIN SCORE: Non-responsive. LOCATION: chest FINDINGS: The cardiac silhouette is normal in transverse diameter. Endotracheal tube is in good position above the sravani. A left sided subclavian vein catheter is in place without pneumothorax with its tip in th e superior vena cava. There is left lower lobe atelectasis versus pneumonia. The findings are similar to the prior exam. The right lung is free of acute parenchymal opacity. No pleural effusions are mendez ntified. CONCLUSION: 1. Satisfactory position of endotracheal tube as above. There is no evidence of pneumothorax. Dereck Singleton MD on August 31, 2016 at 16:38 Board Certified Radiologist. This report was verified electronically.
[2016-08-31 16:53] LABS: BLOOD GAS BASE EXCESS -6.7 mmol/L (-2-2); BLOOD GAS HCO3 22 mmol/L (22-26); BLOOD GAS METHEMOGLOBIN 1.4 % (0-2); BLOOD GAS O2 HGB SATURATION 88 % (90-100); BLOOD GAS OXYGEN CONTENT 15.4 Vol % (12.0-20.0); BLOOD GAS PCO2 74 mmHg (38-42); BLOOD GAS PO2 72 mmHg (61-120); BLOOD GAS TOTAL HGB 12.4 G/DL (12.0-16.0); TEMP CORR TO 98.6
[2016-08-31 16:54] LABS: CRITICAL VALUE YES; DRAW SITE RT BRACHIAL; FIO2 50 %; NUMBER OF ARTERIAL PUNCTURES 1; OXYGEN DEVICE VENTILATOR; STAT NO; ULNAR PULSE PRESENT
[2016-08-31 16:58] LABS: BLOOD GAS VENOUS BASE EXCESS -6.7 mmol/L (-2-2); BLOOD GAS VENOUS HCO3 22 mmol/L (22-26); BLOOD GAS VENOUS O2 CONTENT 13.3 Vol % (9.0-17.0); BLOOD GAS VENOUS O2 HGB SAT 76 % (70-76); BLOOD GAS VENOUS PCO2 79 mmHg (44-48); BLOOD GAS VENOUS PO2 52 mmHg (35-40); BLOOD GAS VENOUS pH 7.08 (7.360-7.400); CRITICAL VALUE YES; OXYGEN DEVICE VENTILATOR; TEMP CORR TO 98.6
[2016-08-31 16:59] LABS: DRAW SITE CENTRAL LINE; FIO2 50 %; STAT NO
[2016-08-31] MEDS ORDERED: SODIUM BICARBONATE 8.4% INJ 50 ML ONE (17:05)
[2016-08-31 17:08] LABS: CKMB 10.4 NG/ML (0.5-3.6)
[2016-08-31 17:57] LABS: BLOOD GAS CARBOXYHEMOGLOBIN 1.1 % (0-4); BLOOD GAS HCO3 21 mmol/L (22-26); BLOOD GAS METHEMOGLOBIN 1.4 % (0-2); BLOOD GAS O2 HGB SATURATION 94 % (90-100); BLOOD GAS OXYGEN CONTENT 15.9 Vol % (12.0-20.0); BLOOD GAS PCO2 59 mmHg (38-42); BLOOD GAS PO2 92 mmHg (61-120); TEMP CORR TO 98.6
[2016-08-31 17:58] LABS: CRITICAL VALUE YES; OXYGEN DEVICE VENTILATOR
[2016-08-31 17:59] LABS: FIO2 50 %
[2016-08-31 18:00] LABS: DRAW SITE RT RADIAL; NUMBER OF ARTERIAL PUNCTURES 1; STAT NO; ULNAR PULSE PRESENT
[2016-08-31] MEDS ORDERED: ROCURONIUM INJ 50 MG/5 ML VIAL IV ONE ×2 (18:00→20:15)
[2016-08-31] MEDS: AZTREONAM INJ 2,000 MG in SODIUM CHLORIDE 0.9% INJ 100 ML IV SCH (18:21)
[2016-08-31] MEDS: fentaNYL DRIP 250 ML IV SCH (18:26)
[2016-08-31] MEDS: PROPOFOL 1000 MG/100 ML INJ 100 ML IV SCH ×3 (18:27→23:21)
[2016-08-31 18:56] LABS: LACTIC ACID GHOST NOT REPORTABLE
[2016-08-31] MEDS: RESP: ALBUTEROL 2.5 MG/IPRATROPIUM 0.5 MG NEB (SCH) NEB ×2 (19:38→23:12)
--- NOTE | 2016-08-31 19:52 | EKG ---
Date Performed: 08/31/2016 Time Performed: 09:54:30 PTAGE: 46 years EKG: Sinus rhythm NONSPECIFIC T-WAVE ABNORMALITY BORDERLINE ECG NO PREVIOUS TRACING DOCTOR: Naila Schrader Interpretating Date/Time 08/31/2016 19:52:06
[2016-08-31] MEDS ORDERED: CHLORHEXIDINE 0.12% (ORAL KIT) 15 ML CUP MT SCH (20:00)
[2016-08-31] MEDS ORDERED: VANCOMYCIN INJ 1,250 MG in SODIUM CHLOR 0.9% 250 ML INJ 250 ML IV SCH (20:00)
[2016-08-31] MEDS ORDERED: MIDAZOLAM HCL 2 MG/2 ML VIAL IV PUSH ONE (20:15)
[2016-08-31] MEDS: LEVOFLOXACIN 750 MG PREMIX INJ 150 ML IV SCH (20:21)
[2016-08-31] MEDS: SODIUM BICARBONATE 8.4% INJ 150 MEQ in WATER STERILE FOR INJ 850 ML IV SCH (20:21)
[2016-08-31] MEDS: SODIUM CHLORIDE 0.9% FLUSH 10 ML FLUSH IV FLUSH SCH (21:00)
[2016-08-31] MEDS ORDERED: CHLORHEXIDINE GLUCONATE 2 % 1 PACK (2 CLOTHS)(extra cloths) TOPICAL PRN (21:15)
[2016-08-31 22:00] LABS: AMPHETAMINE, URINE NEG (NEG); BARBITURATES, URINE NEG (NEG); COCAINE, URINE POS (NEG)
[2016-08-31 22:17] LABS: BLOOD, URINE LARGE (NEG); COMMENT (UR) CULTURE INDICATED; CULTURE IF INDICATED CULTURE INDICATED; GLUCOSE,URINE TRACE mg/dL (NEG); HYALINE CAST, URINE 17 /lpf (RARE); KETONE, URINE TRACE mg/dL (NEG); MUCUS URINE FEW /lpf (OCC); NITRITE,URINE NEG (NEG); PH, URINE 5.5 (5.0-8.5); URIC ACID CRYSTALS, URINE RARE /hpf; URINE COLOR YELLOW (YELLW/STRAW)
[2016-08-31 22:20] LABS: MAGNESIUM 1.9 MG/DL (1.5-2.5)
[2016-08-31 22:33] LABS: CKMB 8.6 NG/ML (0.5-3.6)
[2016-08-31 22:34] LABS: BLOOD GAS BASE EXCESS -5.1 mmol/L (-2-2); BLOOD GAS CARBOXYHEMOGLOBIN 1.3 % (0-4); BLOOD GAS HCO3 21 mmol/L (22-26); BLOOD GAS METHEMOGLOBIN 1.2 % (0-2); BLOOD GAS O2 HGB SATURATION 96 % (90-100); BLOOD GAS OXYGEN CONTENT 14.4 Vol % (12.0-20.0); BLOOD GAS PCO2 53 mmHg (38-42); BLOOD GAS PO2 105 mmHg (61-120); BLOOD GAS TOTAL HGB 10.6 G/DL (12.0-16.0); CRITICAL VALUE YES; OXYGEN DEVICE VENTILATOR; TEMP CORR TO 98.6
[2016-08-31 22:35] LABS: DRAW SITE RT BRACHIAL; FIO2 50 %; NUMBER OF ARTERIAL PUNCTURES 1; STAT NO; ULNAR PULSE PRESENT; VENT SETTINGS PRVC / AC
[2016-08-31] MEDS: methylPREDNISolone SOD SUCC 125 MG/2 ML VIAL IV PUSH SCH (23:25)
[2016-08-31] MEDS: metroNIDAZOLE 500 MG INJ 100 ML IV SCH (23:26)
[2016-08-31] MEDS ORDERED: CISATRACURIUM BESYLATE 20 MG/10 ML VIAL IVP PRN (23:45)
[2016-08-31] MEDS ORDERED: MIDAZOLAM HCL 2 MG/2 ML VIAL IV PUSH PRN (23:45)
[2016-08-31] MEDS ORDERED: FOSPHENYTOIN IV ONE (23:45)
[2016-08-31] MEDS ORDERED: SODIUM CHLORIDE IV ONE (23:45)
[2016-08-31] MEDS: POTASSIUM PHOSPHATE INJ 30 MMOL in SODIUM CHLOR 0.9% 250 ML INJ 250 ML IV PRN (23:54)
[2016-09-01] VITALS (20 sets, daily range): BP systolic 104–197; BP diastolic 53–103; PULSE 78–101; RESP 20; TEMP 98–98.8; O2SAT 77–100
[2016-09-01] MEDS: AZTREONAM INJ 2,000 MG in SODIUM CHLORIDE 0.9% INJ 100 ML IV SCH ×3 (00:40→17:00)
[2016-09-01] MEDS: SODIUM BICARBONATE 8.4% INJ 150 MEQ in WATER STERILE FOR INJ 850 ML IV SCH ×4 (01:40→23:02)
[2016-09-01] MEDS: PROPOFOL 1000 MG/100 ML INJ 100 ML IV SCH ×2 (03:00→10:43)
[2016-09-01] MEDS: fentaNYL DRIP 250 ML IV SCH (03:00)
[2016-09-01] MEDS: RESP: ALBUTEROL 2.5 MG/IPRATROPIUM 0.5 MG NEB (SCH) NEB ×6 (03:18→23:48)
[2016-09-01 05:03] LABS: BLOOD GAS BASE EXCESS -1.1 mmol/L (-2-2); BLOOD GAS CARBOXYHEMOGLOBIN 1.6 % (0-4); BLOOD GAS HCO3 24 mmol/L (22-26); BLOOD GAS METHEMOGLOBIN 1.1 % (0-2); BLOOD GAS O2 HGB SATURATION 93 % (90-100); BLOOD GAS OXYGEN CONTENT 13.4 Vol % (12.0-20.0); BLOOD GAS PCO2 43 mmHg (38-42); BLOOD GAS PO2 72 mmHg (61-120); BLOOD GAS TOTAL HGB 10.1 G/DL (12.0-16.0); TEMP CORR TO 98.6
[2016-09-01 05:04] LABS: CRITICAL VALUE NO; OXYGEN DEVICE VENTILATOR
[2016-09-01 05:05] LABS: DRAW SITE RT RADIAL; FIO2 40 %; NUMBER OF ARTERIAL PUNCTURES 1; STAT NO; ULNAR PULSE PRESENT; VENT SETTINGS PRVC / AC /
[2016-09-01 06:27] LABS: AUTOMATED NEUTROPHIL # 19.3 TH/MM3 (1.8-7.7); HEMATOCRIT 30.4 % (35.0-46.0); HEMO FLAGS DIFF FINAL; LYMPH % 2.9 % (9.0-44.0); LYMPHOCYTE # 0.6 TH/MM3 (1.0-4.8); MEAN CELL VOLUME 88.3 FL (80.0-100.0); MEAN CORPUSCULAR HEMOGLOBIN 30.2 PG (27.0-34.0); MEAN CORPUSCULAR HGB CONC 34.2 % (32.0-36.0); MONO % 2.4 % (0.0-8.0); NEUT % 94.7 % (16.0-70.0); PLATELET COUNT 228 TH/MM3 (150-450); RED BLOOD COUNT 3.45 MIL/MM3 (4.00-5.30); RED CELL DISTRIBUTION WIDTH 13.6 % (11.6-17.2); WHITE BLOOD COUNT 20.4 TH/MM3 (4.0-11.0)
[2016-09-01 06:59] LABS: BICARBONATE 27.3 MEQ/L (21.0-32.0); CALCIUM-PROTEIN CORRECTED 8.2 MG/DL (8.5-10.1); POTASSIUM 3.9 MEQ/L (3.5-5.1); TOTAL BILIRUBIN ADULT 0.4 MG/DL (0.2-1.0)
[2016-09-01] MEDS: PANTOPRAZOLE SODIUM 40 MG VIAL IV SCH (08:55)
[2016-09-01] MEDS: metroNIDAZOLE 500 MG INJ 100 ML IV SCH ×2 (08:55→15:48)
[2016-09-01] MEDS: SODIUM CHLORIDE 0.9% FLUSH 10 ML FLUSH IV FLUSH SCH ×2 (08:56→21:00)
[2016-09-01] MEDS: CHLORHEXIDINE 0.12% (ORAL KIT) 15 ML CUP MT SCH ×2 (08:57→20:00)
[2016-09-01] MEDS: FOSPHENYTOIN SODIUM 100 MG PE/2 ML VIAL IV SCH (10:45)
[2016-09-01] MEDS: ARTIFICIAL TEARS OPTH OINT 3.5 APPLIC/3.5 GM TUBO EACH EYE SCH ×2 (10:45→20:38)
[2016-09-01] MEDS: methylPREDNISolone SOD SUCC 125 MG/2 ML VIAL IV PUSH SCH ×2 (10:46→18:31)
--- NOTE | 2016-09-01 11:58 | HHI.CCPN ---
Subjective Remarks/Hospital Course Patient is a 46-year-old female with history of hypertension not on medication and polysubstance abuse who presented to the emergency department in acute severe respiratory distress. She presented with hypoxemia tachycardia and hypertension impending respiratory arrest and was emergently placed on BiPAP by the ER physician. Received 125 mg of Solu-Medrol and [id number] breathing treatments. Slightly improved on BiPAP but continues to be tachypneic with bilateral wheezing. History obtained by [facility] states that she woke up at 5 AM short of breath.She admits to snorting Cocaine and heroin 08/30 evening, and thinks thinks it may have been laced with Fentanyl. She also reports productive cough of yellow-green sputum since this morning. I evaluated the patient in the ED. She has just received 0.5 mg, Ativan and 0.5 mg of Dilaudid. Patient sees anxious tachypneic and tachycardic on the BiPAP. She has bilateral significant wheezing. Received multiple [id number] breathing treatments with DuoNeb so far. I have explained to her that if she is not improving the next 1 hour she'll require endotracheal intubation and mechanical ventilation. Note that her lactic acid was 5 on admission, he received 2 L Ns bolus, repeat lactic acid came back at 6.9. Chest x-ray showed left lower lobe pneumonia. CT chest showed left lower lobe infiltrate, small pneumomediastinum, trace left pneumothorax 09/01/16: Patient was intubated yesterday for worsening hypercarbic respiratory failure and worsening metabolic acidemia. Currently intubated sedated ABG has normalized lactic acid pending. Chest x-ray pending. UO 1.7 L in 24 hours[address] EEG ordered by Dr. Mckay, and was started on Dilantin Objective Vital Signs Date Time Temp Pulse Resp B/P Pulse Ox O2 Delivery O2 Flow Rate FiO2 09/01/16 10:03 96 40 09/01/16 06:00 98 09/01/16 04:00 98.0 20 106/59 08/31/16 14:09 BiPAP Intake and Output 08/31/16 08/31/16 09/01/16 08:00 16:00 00:00 Intake Total 2926 ml Output Total 1200 ml Balance 1726 ml Result Diagram: 09/01/16 0540 09/01/16 0540 Other Results Laboratory Tests Test 08/31/16 08/31/16 08/31/16 08/31/16 15:20 16:29 16:50 17:45 Blood Gas Puncture Site RT BRACHIAL RT BRACHIAL CENTRAL LINE RT RADIAL Blood Gas Patient Temperature 98.6 98.6 98.6 98.6 Blood Gas HCO3 21 mmol/L 22 mmol/L 21 mmol/L (22-26) (22-26) (22-26) Blood Gas Base Excess -6.7 mmol/L -6.7 mmol/L -6.0 mmol/L (-2-2) (-2-2) (-2-2) Blood Gas Oxygen Saturation 98 % (90-100) 88 % (90-100) 94 % (90-100) Arterial Blood pH 7.17 7.10 7.18 (7.380-7.420) (7.380-7.420) (7.380-7.420) Arterial Blood Partial 59 mmHg (38-42) 74 mmHg (38-42) 59 mmHg (38-42) Pressure CO2 Arterial Blood Partial 319 mmHg 72 mmHg 92 mmHg Pressure O2 (61-120) (61-120) (61-120) Arterial Blood Oxygen Content 18.3 Vol % 15.4 Vol % 15.9 Vol % (12.0-20.0) (12.0-20.0) (12.0-20.0) Arterial Blood 0.9 % (0-4) 1.0 % (0-4) 1.1 % (0-4) Carboxyhemoglobin Arterial Blood Methemoglobin 1.1 % (0-2) 1.4 % (0-2) 1.4 % (0-2) Blood Gas Hemoglobin 12.8 G/DL 12.4 G/DL 12.0 G/DL (12.0-16.0) (12.0-16.0) (12.0-16.0) Oxygen Delivery Device BIPAP VENTILATOR VENTILATOR VENTILATOR Blood Gas Ventilator Setting IPAP+12/EPAP+5 Blood Gas Inspired Oxygen 80 % 50 % 50 % 50 % Venous Blood pH 7.08 (7.360-7.400) Venous Blood Partial Pressure 79 mmHg (44-48) CO2 Venous Blood Partial Pressure 52 mmHg (35-40) O2 Venous Blood HCO3 22 mmol/L (22-26) Venous Blood Oxygen Saturation 76 % (70-76) Venous Blood Oxygen Content 13.3 Vol % (9.0-17.0) Venous Blood Base Excess -6.7 mmol/L (-2-2) Test 08/31/16 09/01/16 22:25 04:55 Blood Gas Puncture Site RT BRACHIAL RT RADIAL Blood Gas Patient Temperature 98.6 98.6 Blood Gas HCO3 21 mmol/L 24 mmol/L (22-26) (22-26) Blood Gas Base Excess -5.1 mmol/L -1.1 mmol/L (-2-2) (-2-2) Blood Gas Oxygen Saturation 96 % (90-100) 93 % (90-100) Arterial Blood pH 7.23 7.36 (7.380-7.420) (7.380-7.420) Arterial Blood Partial 53 mmHg (38-42) 43 mmHg (38-42) Pressure CO2 Arterial Blood Partial 105 mmHg 72 mmHg Pressure O2 (61-120) (61-120) Arterial Blood Oxygen Content 14.4 Vol % 13.4 Vol % (12.0-20.0) (12.0-20.0) Arterial Blood 1.3 % (0-4) 1.6 % (0-4) Carboxyhemoglobin Arterial Blood Methemoglobin 1.2 % (0-2) 1.1 % (0-2) Blood Gas Hemoglobin 10.6 G/DL 10.1 G/DL (12.0-16.0) (12.0-16.0) Oxygen Delivery Device VENTILATOR VENTILATOR Blood Gas Ventilator Setting PRVC / AC PRVC / AC / Blood Gas Inspired Oxygen 50 % 40 % Imaging CT chest LLL pneumonia, small pneumomediastinum, tiny pneumothorax on the left Objective Remarks GENERAL: This is a well-nourished, well-developed female intubated heavily sedated SKIN: Skin is cool and dry HEAD: Atraumatic. Normocephalic. . EYES: Pupils equal round and reactive. ENT: Orotracheally intubated NECK: Trachea midline. No JVD or lymphadenopathy. CARDIOVASCULAR: S1-S2 normal no murmurs RESPIRATORY: Scattered bilateral expiratory wheezing much improved compared to yesterday GASTROINTESTINAL: Abdomen soft, non-tender, nondistended. MUSCULOSKELETAL: Extremities without clubbing, cyanosis, or edema. NEUROLOGICAL: Intubated heavily sedated. Moves all extremities when sedation is lightened Urinary Catheter: Yes Assessment to: Continue A/P Assessment and Plan NEURO: Polysubstance abuse with snorting cocaine, Dilaudid, also smoking crack cocaine Anxiety/withdrawal -Currently on propofol fentanyl and Versed infusions. Start daily sedation vacation Use when necessary Ativan and minimus opiates -Watch closely for withdrawal/seizures -Started on Cerebyx by Dr. Mckay, and EEG ordered. (Not clear overnight had seizures, will DC Cerbyx if EEG negative) RESP: Acute hypoxemic and hypercarbic respiratory failure Acute asthma exacerbation Left lower lobe pneumonia Tiny left pneumothorax small pneumomediastinum -On PRVC mode. Start SBT -DuoNeb every 4 hours scheduled and every 2 hours when necessary -Received 125 mg IV Solu-Medrol, continue 60 mg IV every 6 hours -Broad spectrum ABX with Azactam, Flagyl, Levaquin and single dose of vancomycin -Sputum cx with GPC. Continue vanc pharmacy to dose -CT imaging does not suggest Crack lung CV: Lactic acidosis Hypertension/tachycardia/probable withdrawal -Normal saline IV fluids 2L bolus and 125 ml per hour -Serial Lactic acid, trending down yesterday. Pending lactate today -Cycle cardiac enzymes GI: -NPO. IV Protonix -Start tube feeds in 24 hours if not extubated : -Monitor renal function closely. Oliver catheter. IV hydration as above ID: Severe sepsis Left lower lobe pneumonia -IV vancomycin x1 and pharmacy to dose. Continue Azactam 2 g IV every 8 hours, Flagyl 500 mg IV every 8 hours and Levaquin 750 mg IV every 24 hours -Follow up on blood and sputum cultures-sputum Gram stain with GPC HEME: -Monitor CBC, CMP, coags ENDO: Hypokalemia -Electrolyte replacement per protocol -Sliding-scale insulin if needed PROPH: -Bilateral lower extremity SCDs. Lovenox for DVT prophylaxis. Protonix for GI prophylaxis LINES: -Utilize peripheral IVs, L subclavian central line CC time 45 min Justa Verma MD Sep 01, 2016 11:58
[2016-09-01] MEDS ORDERED: VANCOMYCIN INJ 1,000 MG in SODIUM CHLOR 0.9% 250 ML INJ 250 ML IV ONE (12:30)
[2016-09-01] MEDS ORDERED: Vancomycin Consult Pharmacy 1 EA OTHER SCH (12:30)
--- NOTE | 2016-09-01 13:23 | EKG ---
Date Performed: 08/31/2016 Time Performed: 20:38:08 PTAGE: 46 years EKG: Sinus rhythm NORMAL ECG PREVIOUS TRACING : 08/31/2016 16.40 Compared to prior tracing no significant change DOCTOR: Dereck Segovia Interpretating Date/Time 09/01/2016 13:21:11
--- NOTE | 2016-09-01 13:23 | RADRPT ---
EXAM DATE/TIME: 09/01/2016 12:14 [facility] COMPARISON: CHEST SINGLE AP, August 31, 2016, 16:11. INDICATIONS : Short of breath, evaluate pneumothorax, pneumomediastinum MEDICAL HISTORY : Hypertension. SURGICAL HISTORY : section. ENCOUNTER: Subsequent ACUITY: 2 days PAIN SCORE: Non-responsive. LOCATION: Bilateral chest FINDINGS: A single view of the chest demonstrates interval improvement the left lower lobe infiltrate with some residual airspace disease. No associated effusion. No pneumothorax. Right lung is clear. Endotrachea l tube remains appropriately positioned above the sravani with a left subclavian central venous cathet er projecting over the central venous system. Nasogastric tube enters the stomach and extends off the inferior aspect of the image. CONCLUSION: 1. Improving airspace process in the left base. Right lung remains clear. 2. Endotracheal tube and left subclavian central venous catheter are stable in position. 3. Interval placement of a nasogastric tube which enters the gastric lumen and extends off the inferi or aspect of the image. Chuck Duran MD on September 01, 2016 at 13:19 Board Certified Radiologist. This report was verified electronically.
--- NOTE | 2016-09-01 13:23 | EKG ---
Date Performed: 08/31/2016 Time Performed: 16:40:22 PTAGE: 46 years EKG: Sinus rhythm NORMAL ECG PREVIOUS TRACING : 08/31/2016 09.54 Compared to prior tracing no significant change DOCTOR: Dereck Segovia Interpretating Date/Time 09/01/2016 13:21:21
[2016-09-01] MEDS: ENOXAPARIN SODIUM 40 MG/0.4 ML SYRINGE SQ SCH ×2 (14:24→14:28)
[2016-09-01] MEDS: LEVOFLOXACIN 750 MG PREMIX INJ 150 ML IV SCH (14:25)
[2016-09-01] MEDS: VANCOMYCIN INJ 1,250 MG in SODIUM CHLOR 0.9% 250 ML INJ 250 ML IV SCH (14:32)
[2016-09-01] MEDS: DEXMEDETOMIDINE INJ 200 MCG in SODIUM CHLORIDE 0.9% INJ 48 ML IV SCH ×4 (15:31→21:42)
--- NOTE | 2016-09-01 16:12 | HHI.FPPN ---
Subjective Remarks Patient was seen and examined this morning. Critical care managing at this time ; medicine team following. Per nursing staff, patient was doing better this morning, required rocuronium overnight due to asynchrony with vent. No fevers. Sputum culture was collected from respiratory secretions which are reportedly large volume. (Martina Segovia MD R1) Objective Vitals Vital Signs Date Time Temp Pulse Resp B/P Pulse Ox O2 Delivery O2 Flow Rate FiO2 09/01/16 13:00 95 40 09/01/16 10:03 96 40 09/01/16 06:00 98 09/01/16 04:00 98.0 81 20 106/59 98 09/01/16 04:00 81 09/01/16 03:20 100 40 09/01/16 02:00 78 09/01/16 00:00 98.7 87 20 104/53 99 09/01/16 00:00 87 08/31/16 23:15 100 50 08/31/16 22:00 87 08/31/16 20:00 95 08/31/16 20:00 98.6 95 14 131/67 100 08/31/16 19:41 97 50 I/O 08/31/16 08/31/16 08/31/16 09/01/16 09/01/16 09/01/16 07:00 15:00 23:00 07:00 15:00 23:00 Intake Total 2926 ml 1717 ml Output Total 1200 ml 600 ml Balance 1726 ml 1117 ml Intake IV Total 2926 ml 1717 ml Output Urine Total 1200 ml 500 ml Gastric Drainage Total 100 ml (Martina Segovia MD R1) Result Diagram: 09/01/16 0540 09/01/16 0540 Imaging Last Impressions Chest X-Ray 09/01/16 0000 Signed Impressions: Service Date/Time: August 12:14 - CONCLUSION: 1. Improving airspace process in the left base. Right lung remains clear. 2. Endotracheal tube and left subclavian central venous catheter are stable in position. 3. Interval placement of a nasogastric tube which enters the gastric lumen and extends off the inferior aspect of the image. Chuck Duran MD CT Angiography 08/31/16 0928 Signed Impressions: Service Date/Time: Wednesday, August 31, 2016 10:53 - CONCLUSION: 1. Patchy air space disease on the left lower lobe. 2. Trace pneumo mediastinum and pneumothorax. Leonel Haynes MD FACR Objective Remarks Gen: patient sedated, on ventilator Chest: regular chest rise, synchrony with vent noted CV: regular rate and rhythm Resp: coarse breath sounds on vent Extremities: some edema noted in hands, she has soft restraints on upper extremities bilaterally, SCDs in place : Oliver draining dark urine, supplier specialist than yesterday Medications and IVs Inpatient Medications Albuterol Sulfate (Albuterol Neb) 1.25 mg Q2HR NEB PRN NEB SHORTNESS OF BREATH ; Start 08/31/16 at 14:00; Stop 08/31/16 at 14:08; Status DC Albuterol/ Ipratropium (Duoneb Neb) 1 ampule Q2HR NEB PRN INH SHORTNESS OF BREATH; Start 08/31/16 at 14:00 Albuterol/ Ipratropium 1 ampule 1 ampule Q4HR NEB NEB Last administered on 15:00; Start 08/31/16 at 20:00 Artificial Tears 1 applic 1 applic Q12HR EACH EYE Last administered on 10:45; Start 09/01/16 at 09:00 Azithromycin/ Sodium Chloride (Zithromax Inj/ NS 250 ml Inj) 250 ml @ 250 mls/ hr ONCE ONCE IV Last administered on 08/31/16 13:31; Start 08/31/16 at 11:00 ; Stop 08/31/16 at 11:59; Status DC Aztreonam 2000 mg/ Sodium Chloride 100 ml @ 200 mls/hr Q8H IV ; Start 08/31/16 at 14:00; Stop 08/31/16 at 16:56; Status DC Aztreonam/Sodium Chloride (Azactam Inj/NS Inj) 100 ml @ 200 mls/hr Q8H IV Last administered on 09/01/16 08:56; Start 08/31/16 at 17:00 Ceftriaxone Sodium 2000 mg/ Sodium Chloride 100 ml @ 200 mls/hr ONCE ONCE IV Last administered on 08/31/16 11:32; Start 08/31/16 at 11:00; Stop 08/31/16 at 11:29; Status DC Chlorhexidine Gluconate (Chlorhexidine 2% Cloth) 3 pack UNSCH PRN TOPICAL HYGIENIC CARE; Start 08/31/16 at 21:15; Stop 09/05/16 at 21:14 Chlorhexidine Gluconate (Peridex 0.12% Liq) 15 ml BID@08,20 MT Last administered on 09/01/16 08:57; Start 08/31/16 at 20:00 Chlorhexidine Gluconate 15 ml 15 ml BID@08,20 MT ; Start 08/31/16 at 20:00; Stop 08/31/16 at 20:00; Status DC Cisatracurium Besylate (Nimbex Inj) 8 mg ONCE PRN IVP VENT DYSYNCHRONY; Start 08/31/16 at 23:45; Stop 09/01/16 at 23:44 Dexmedetomidine HCl (Precedex Inj) 50 ml @ 0 mls/hr TITRATE IV ; Start 08/31/16 at 13:30; Stop 09/01/16 at 12:35; Status DC Dexmedetomidine HCl/Sodium Chloride (Precedex Inj/NS Inj) 50 ml @ 0 mls/hr TITRATE IV Last administered on 09/01/16 15:31; Start 09/01/16 at 12:35 Enoxaparin Sodium (Lovenox Inj) 40 mg Q24H SQ Last administered on 09/01/16 14 :28; Start 08/31/16 at 14:00 Fentanyl Citrate 250 ml @ 0 mls/hr TITRATE IV Last administered on 09/01/16 03 :00; Start 08/31/16 at 15:45 Fentanyl Citrate (fentaNYL INJ) 50 mcg Q1H PRN IV SEE LABEL COMMENTS Last administered on 08/31/16 18:25; Start 08/31/16 at 14:00 Flumazenil (Romazicon Inj) 0.2 mg Q1M PRN IV PUSH SEE LABEL COMMENTS; Start at 14:00 Fosphenytoin Sodium (Cerebyx Inj) 100 mgpe Q12H IV Last administered on 10:45; Start 09/01/16 at 12:00 Fosphenytoin Sodium/Sodium Chloride (Cerebyx Inj/NS Inj) 122 ml @ 390 mls/hr ONCE ONCE IV Last administered on 09/01/16 01:40; Start 08/31/16 at 23:45; Stop 09/01/16 at 00:03; Status DC Hydromorphone HCl (Dilaudid Pf Inj) 1 mg ONCE ONCE IV PUSH Last administered on 08/31/16 14:33; Start 08/31/16 at 13:45; Stop 08/31/16 at 13:46; Status DC Hydromorphone HCl 0.5 mg 0.5 mg ONCE ONCE IV PUSH Last administered on 13:41; Start 08/31/16 at 13:15; Stop 08/31/16 at 13:17; Status DC Levofloxacin/ Dextrose 150 ml @ 100 mls/hr Q24H IV Last administered on 14:25; Start 08/31/16 at 15:00 Lorazepam (Ativan Inj) 2 mg Q15M PRN IV PUSH CIWA > 20; Start 08/31/16 at 14:00 Lorazepam (Ativan) 2 mg Q2H PRN PO CIWA 11-14; Start 08/31/16 at 14:00 Magnesium Oxide 800 mg 800 mg UNSCH PRN PO For Magnesium 1.2 - 1.6 mg/dL; Start 08/31/16 at 14:30 Magnesium Sulfate 2 gm/Sodium Chloride 100 ml @ 50 mls/hr UNSCH PRN IV For Magnesium 1.2 - 1.6 mg/dL; Start 08/31/16 at 14:30 Magnesium Sulfate/ Sodium Chloride (Magnesium Sulfate Inj/NS Inj) 100 ml @ 50 mls/hr UNSCH PRN IV For Magnesium 0.9 - 1.1 mg/dL; Start 08/31/16 at 14:30 Methylprednisolone Sodium Succinate (SoluMEDROL INJ) 125 mg ONCE ONCE IVP Last administered on 08/31/16 09:51; Start 08/31/16 at 09:30; Stop 08/31/16 at 09:31; Status DC Methylprednisolone Sodium Succinate 60 mg 60 mg Q6HR IV PUSH Last administered on 09/01/16 10:46; Start 08/31/16 at 18:00 Metronidazole 100 ml @ 100 mls/hr Q8H IV Last administered on 09/01/16 15:48 ; Start 08/31/16 at 16:00 Midazolam HCl (Versed Inj) 4 mg ONCE ONCE IV PUSH Last administered on 20:19; Start 08/31/16 at 20:15; Stop 08/31/16 at 20:16; Status DC Midazolam HCl 2 mg 2 mg Q15M PRN IV PUSH SEDATION; Start 08/31/16 at 23:45 Miscellaneous Information SPECIFIC LAB TO BE DRAWN:VANCOMYCIN TROUGH DATE TO... ONCE ONCE .XX ; Start 09/03/16 at 01:45; Stop 09/03/16 at 01:46 Morphine Sulfate 4 mg 4 mg ONCE ONCE IV PUSH Last administered on 08/31/16 10 :05; Start 08/31/16 at 09:45; Stop 08/31/16 at 09:46; Status DC Naloxone HCl (Narcan Inj) 0.4 mg UNSCH PRN IV SEE LABEL COMMENTS; Start at 13:30 Ondansetron HCl (Zofran Inj) 4 mg ONCE ONCE IV PUSH Last administered on 10:05; Start 08/31/16 at 09:45; Stop 08/31/16 at 09:46; Status DC Pantoprazole Sodium 40 mg 40 mg DAILY IV Last administered on 09/01/16 08:55; Start 09/01/16 at 09:00 Pharmacy Profile Note 0 ml @ 0 mls/hr UNSCH OTHER ; Start 09/01/16 at 12:30 Pharmacy Profile Note (Vancomycin Consult Pharmacy) 0 ml @ 0 mls/hr UNSCH OTHER ; Start 08/31/16 at 16:15; Stop 09/01/16 at 12:38; Status DC Potassium Phosphate 2000 mg 2,000 mg UNSCH PRN PO/TUBE SEE LABEL COMMENTS; Start 08/31/16 at 14:30 Potassium Phosphate/Sodium Chloride (Potassium Phosphate Inj/NS 250 ml Inj) 260 ml @ 42 mls/hr UNSCH PRN IV SEE LABEL COMMENTS Last administered on 08/31/16 23:54; Start 08/31/16 at 14:30 Potassium Chloride 100 ml @ 50 mls/hr Q2H PRN IV For Potassium 3.3 - 3.5 mEq/L ; Start 08/31/16 at 14:30 Propofol 100 ml @ 0 mls/hr TITRATE IV Last administered on 09/01/16 10:43; Start 08/31/16 at 15:45 Rocuronium Siloam 50 mg 50 mg BOLUS ONCE IV Last administered on 08/31/16 18 :11; Start 08/31/16 at 18:00; Stop 08/31/16 at 18:01; Status DC Rocuronium Siloam (Zemuron Inj) 50 mg BOLUS ONCE IV Last administered on 08/31 20:19; Start 08/31/16 at 20:15; Stop 08/31/16 at 20:16; Status DC Sodium Bicarbonate/ Sterile Water (Sodium Bicarbonate 8.4% Inj/Sterile Water For Inj) 1,000 ml @ 150 mls/hr Q6H40M IV Last administered on 09/01/16 08:58 ; Start 08/31/16 at 20:00 Sodium Chloride 1,000 ml @ 999 mls/hr BOLUS ONCE IV Last administered on 08/31 20:21; Start 08/31/16 at 16:45; Stop 08/31/16 at 17:45; Status DC Sodium Chloride (NS 1000 ml Inj) 1,000 ml @ 999 mls/hr BOLUS ONCE IV ; Start 08/31/16 at 14:15; Stop 08/31/16 at 15:15; Status DC Sodium Chloride (NS Flush) 2 ml BID IV FLUSH Last administered on 09/01/16 08: 56; Start 08/31/16 at 21:00 Sodium Phosphate/ Sodium Chloride (Sodium Phosphate Inj/NS 250 ml Inj) 250 ml @ 42 mls/hr UNSCH PRN IV For Phosphorus < 2.5 mg/dL; Start 08/31/16 at 14:30 Vancomycin HCl 1000 mg/Sodium Chloride 250 ml @ 250 mls/hr ONCE ONCE IV ; Start 09/01/16 at 12:30; Stop 09/01/16 at 12:37; Status DC Vancomycin HCl/ Sodium Chloride (Vancomycin Inj/ NS 250 ml Inj) 262.5 ml @ 250 mls/hr Q18H IV Last administered on 09/01/16 14:32; Start 09/01/16 at 14:00 ( Martina Segovia MD R1) Urinary Catheter: Yes Assessment to: Continue Oliver insert reason: Prolonged Immobilization Date of Insertion: Aug 31, 2016 (Martina Segovia MD R1) Vascular Central Line Catheter: Yes Date of Insertion: Aug 31, 2016 (Martina Segovia MD R1) A/P Assessment and Plan 46 year old female with history of drug use presenting with respiratory distress , meeting severe sepsis criteria. CTA on admission showing evidence of PNA. Worsening respiratory distress and acidosis warranted intubation on 08/31/16. Discharge Planning Pending clinical improvement, Critical Care currently managing (Martina Segovia MD R1) Attending Attestation Pt. examined and case discussed with resident physician I have read the above note and agree with the assessment/plan as discussed with me I was involved in all medical decision making for this patient Huang Pacheco MD (Huang Pacheco MD) Problem List: (1) Sepsis Status: Acute Plan: IV antibiotics per critical care as below: - Aztreonam 2 g IV every 8 hours - Vancomycin 1 - Flagyl 500 mg IV every 8 hours - Levaquin 750 mg IV every 24 hours Received Rocephin and azithromycin 1 in the emergency department Meeting sepsis criteria by vital signs, severe sepsis by lactate 5.0, mild THOR. Source identified on CT --> PNA, possible septicemia as well, blood cultures ordered. Blood cultures drawn and pending Sputum cultures ordered by critical care UA, urine culture UDS + opiates Serial lactic acid after bolus and initiation of antibiotics S/p 3 L normal saline IV bolus Monitor renal function closely Monitor on telemetry and vital signs every 4 hours -Critical Care consult placed in ED, patient admitted to MICU and intubated due to inability to protect airway given respiratory distress/acidosis (2) Reactive airway disease Status: Acute Plan: Significant amount of wheezing on exam with restricted airflow Medical management as below: -Duonebs q2hr PRN -Solumedrol iv 60mg q6hr -Antibiotics as above -Intubated on ventilator, CC will wean as tolerated (3) Pneumonia Status: Acute Plan: Admission CXR significant for LLL atelectasis vs. PNA. Repeat CXR 09/01 showing some improvement of airspace disease CTA ordered showing patchy airspace disease in LLL, trace pneumomediastinum and PTX. -Management as above for sepsis and RAD (4) Pneumomediastinum Status: Acute Plan: -Management as above for Reactive Airway Disease. (5) Pneumothorax Status: Acute Plan: -Management as above for Reactive Airway Disease. (6) Polysubstance abuse Status: Acute Plan: History of drug use chronic drug use. Reports Dilaudid 8-24mg snorted , cocaine use 08/30, heroin use 08/30. She passed out after snorting the latter two substances last night, possibly laced. -Ativan q2hr PRN agitation -CIWA protocol -Precedex ordered per Instructor Adjunct Pharmacy Technician, should manage BP and withdrawal symptoms, also sedated with Propofol and Fentanyl for comfort on vent (7) Elevated troponin Status: Resolved Plan: Troponin 0.08 on admission, increased on trending, now wnl. Differential includes ACS, arrhythmia, coronary artery vasospasm, HTN, hypoperfusion, rhabdomyolysis, PE, sepsis. CTA negative for PE. EKG showing sinus tachycardia. -Likely related to sepsis, hypoperfusion -EKG showing NSR -Telemetry (8) Hypertension Status: Chronic Plan: Reports chronic HTN, was on lisinopril but stopped one month. -Precedex for now given withdrawal -Transition to other meds once weaned off (9) Elevated CK Status: Acute Plan: Acute elevated likely related to prolonged immobilization after drug use , hypoperfusion. Trends being monitored (10) Fluids/Electrolytes/Nutrition/Prophylaxis Status: Acute Plan: Management per Critical Care dw Dr. Pacheco (Martina Segovia MD R1) Problem Qualifiers (1) Pneumonia: Qualified Code: J18.1 - Pneumonia of left lower lobe due to infectious organism (2) Pneumothorax: Qualified Code: J93.9 - Pneumothorax, unspecified type Martina Segovia MD R1 Sep 01, 2016 16:12 Huang Pacheco MD Sep 01, 2016 19:45
[2016-09-01] MEDS ORDERED: FUROSEMIDE 40 MG/4 ML VIAL IV PUSH ONE (18:15)
[2016-09-01] MEDS ORDERED: POTASSIUM CHLOR 40 MEQ PREMIX 100 ML IV ONE (18:15)
[2016-09-01] MEDS ORDERED: LABETALOL HCL 100 MG/20 ML VIAL IV PUSH PRN (19:45)
[2016-09-01] MEDS: hydrALAZINE HCL 20 MG/ML VIAL IV PUSH PRN (19:56)
[2016-09-01] MEDS ORDERED: DEXMEDETOMIDINE INJ 1,000 MCG in SODIUM CHLOR 0.9% 250 ML INJ 240 ML IV SCH (22:30)
--- NOTE | 2016-09-01 23:03 | MG ---
cc: BONY GARLAND Lab No: [id number] Date: 09/01/16 Age: Sex: F Race: Intubated, Diprivan, versed, no hyperventilation. Awake at the end of the recording. Cocaine, benzodiazepines, vanco, ___ Diprivan. Diffuse beta and alpha rhythms are noted. Photic stimulation was performed without significant posterior driving. No epileptiform or seizure activity is noted. There were no hemisphere asymmetries. IMPRESSION Some medication effect but generally an unremarkable EEG. No seizure activity is noted. No focal abnormalities were noted. MD JORDYN Salgado/ /10:04 PM /10:56 PM
[2016-09-02] VITALS (17 sets, daily range): BP systolic 106–193; BP diastolic 54–96; PULSE 60–117; RESP 20–23; TEMP 97.9–98.9; O2SAT 93–99
[2016-09-02] MEDS: metroNIDAZOLE 500 MG INJ 100 ML IV SCH ×3 (00:05→15:51)
[2016-09-02] MEDS: FOSPHENYTOIN SODIUM 100 MG PE/2 ML VIAL IV SCH ×2 (00:05→13:00)
[2016-09-02] MEDS: methylPREDNISolone SOD SUCC 125 MG/2 ML VIAL IV PUSH SCH ×2 (00:05→05:51)
[2016-09-02] MEDS: AZTREONAM INJ 2,000 MG in SODIUM CHLORIDE 0.9% INJ 100 ML IV SCH ×3 (00:05→15:52)
[2016-09-02] MEDS: hydrALAZINE HCL 20 MG/ML VIAL IV PUSH PRN ×2 (02:13→13:00)
[2016-09-02] MEDS: RESP: ALBUTEROL 2.5 MG/IPRATROPIUM 0.5 MG NEB (SCH) NEB ×6 (03:31→23:41)
[2016-09-02] MEDS: CHLORHEXIDINE GLUCONATE 2 % 1 PACK (2 CLOTHS)(taper/protocol) TOPICAL SCH (04:00)
[2016-09-02 05:18] LABS: ALT (GPT) 37 U/L (10-53); ANION GAP 6 MEQ/L (5-15); AST (GOT) 34 U/L (15-37); AUTOMATED NEUTROPHIL # 17.9 TH/MM3 (1.8-7.7); BASOPHIL % 0.1 % (0.0-2.0); BICARBONATE 31.8 MEQ/L (21.0-32.0); BLOOD UREA NITROGEN 13 MG/DL (7-18); CHLORIDE 106 MEQ/L (98-107); GLOMERULAR FILTRATION RATE 87 ML/MIN (>89); HEMATOCRIT 34.1 % (35.0-46.0); HEMO FLAGS DIFF FINAL; LYMPH % 3.4 % (9.0-44.0); LYMPHOCYTE # 0.7 TH/MM3 (1.0-4.8); MAGNESIUM 2.3 MG/DL (1.5-2.5); MEAN CELL VOLUME 87.9 FL (80.0-100.0); MEAN CORPUSCULAR HEMOGLOBIN 29.3 PG (27.0-34.0); MEAN CORPUSCULAR HGB CONC 33.4 % (32.0-36.0); MONO % 2.9 % (0.0-8.0); NEUT % 93.6 % (16.0-70.0); PLATELET COUNT 273 TH/MM3 (150-450); POTASSIUM 3.3 MEQ/L (3.5-5.1); RED BLOOD COUNT 3.88 MIL/MM3 (4.00-5.30); RED CELL DISTRIBUTION WIDTH 13.5 % (11.6-17.2); SODIUM (NA) 144 MEQ/L (136-145); WHITE BLOOD COUNT 19.1 TH/MM3 (4.0-11.0)
[2016-09-02 05:20] LABS: ALKALINE PHOSPHATASE 52 U/L (45-117); TOTAL BILIRUBIN ADULT 0.3 MG/DL (0.2-1.0)
[2016-09-02] MEDS: SODIUM BICARBONATE 8.4% INJ 150 MEQ in WATER STERILE FOR INJ 850 ML IV SCH (05:50)
--- NOTE | 2016-09-02 06:08 | RADRPT ---
EXAM DATE/TIME: 09/02/2016 04:28 [facility] COMPARISON: CHEST SINGLE AP, September 01, 2016, 12:14. INDICATIONS : Shortness of breath. MEDICAL HISTORY : Hypertension. SURGICAL HISTORY : None. ENCOUNTER: Subsequent ACUITY: 3 days PAIN SCORE: Non-responsive. LOCATION: Bilateral chest FINDINGS: Portable AP view of the chest demonstrates a normal-sized cardiac silhouette. Left subclavian central line remains present. Nasogastric tube and endotracheal tube have been removed. Lungs are mildly und erinflated. There is mild atelectasis versus consolidation the left lung base. No pneumothorax or ple ural effusion is present. CONCLUSION: Subtle but stable airspace opacity at the left lung base representing either atelectasis or consolida tion. Bayron Foy MD on September 02, 2016 at 6:06 Board Certified Radiologist. This report was verified electronically.
[2016-09-02] MEDS: POTASSIUM CHLOR 40 MEQ PREMIX 100 ML IV PRN (06:23)
[2016-09-02] MEDS: CHLORHEXIDINE 0.12% (ORAL KIT) 15 ML CUP MT SCH ×2 (08:00→20:00)
[2016-09-02] MEDS: VANCOMYCIN INJ 1,250 MG in SODIUM CHLOR 0.9% 250 ML INJ 250 ML IV SCH (08:00)
[2016-09-02] MEDS: ARTIFICIAL TEARS OPTH OINT 3.5 APPLIC/3.5 GM TUBO EACH EYE SCH ×2 (09:00→21:00)
[2016-09-02] MEDS: PANTOPRAZOLE SODIUM 40 MG VIAL IV SCH (09:00)
[2016-09-02] MEDS: SODIUM CHLORIDE 0.9% FLUSH 10 ML FLUSH IV FLUSH SCH ×2 (09:00→21:34)
--- NOTE | 2016-09-02 09:58 | HHI.CCPN ---
Subjective Remarks/Hospital Course Patient is a 46-year-old female with history of hypertension not on medication and polysubstance abuse who presented to the emergency department in acute severe respiratory distress. She presented with hypoxemia tachycardia and hypertension impending respiratory arrest and was emergently placed on BiPAP by the ER physician. Received 125 mg of Solu-Medrol and [id number] breathing treatments. Slightly improved on BiPAP but continues to be tachypneic with bilateral wheezing. History obtained by [facility] states that she woke up at 5 AM short of breath.She admits to snorting Cocaine and heroin 08/30 evening, and thinks thinks it may have been laced with Fentanyl. She also reports productive cough of yellow-green sputum since this morning. I evaluated the patient in the ED. She has just received 0.5 mg, Ativan and 0.5 mg of Dilaudid. Patient sees anxious tachypneic and tachycardic on the BiPAP. She has bilateral significant wheezing. Received multiple [id number] breathing treatments with DuoNeb so far. I have explained to her that if she is not improving the next 1 hour she'll require endotracheal intubation and mechanical ventilation. Note that her lactic acid was 5 on admission, he received 2 L Ns bolus, repeat lactic acid came back at 6.9. Chest x-ray showed left lower lobe pneumonia. CT chest showed left lower lobe infiltrate, small pneumomediastinum, trace left pneumothorax 09/01/16: Patient was intubated yesterday for worsening hypercarbic respiratory failure and worsening metabolic acidemia. Currently intubated sedated ABG has normalized lactic acid pending. Chest x-ray pending. UO 1.7 L in 24 hours. EEG ordered by Dr. Mckay, and was started on Dilantin 09/02 Patient is on BIPAP 10/5 with 45% FIO2 and on Precedex and bicarb drips. Afebrile. Objective Vital Signs Date Time Temp Pulse Resp B/P Pulse Ox O2 Delivery O2 Flow Rate FiO2 09/02/16 07:37 97 45 09/02/16 06:00 73 09/02/16 05:03 20 09/02/16 04:00 98.6 144/77 09/01/16 17:25 Nasal Cannula 6 Intake and Output 09/01/16 09/01/16 09/02/16 08:00 16:00 00:00 Intake Total 1717 ml 2042 ml 2059 ml Output Total 600 ml 1300 ml 5200 ml Balance 1117 ml 742 ml -3141 ml Result Diagram: 09/02/16 0355 09/02/16 0355 Other Results Laboratory Tests Test 09/01/16 09/02/16 13:50 03:55 Lactic Acid Level 2.0 mmol/L White Blood Count 19.1 TH/MM3 Red Blood Count 3.88 MIL/MM3 Hemoglobin 11.4 GM/DL Hematocrit 34.1 % Mean Corpuscular Volume 87.9 FL Mean Corpuscular Hemoglobin 29.3 PG Mean Corpuscular Hemoglobin 33.4 % Concent Red Cell Distribution Width 13.5 % Platelet Count 273 TH/MM3 Mean Platelet Volume 8.7 FL Neutrophils (%) (Auto) 93.6 % Lymphocytes (%) (Auto) 3.4 % Monocytes (%) (Auto) 2.9 % Eosinophils (%) (Auto) 0.0 % Basophils (%) (Auto) 0.1 % Neutrophils # (Auto) 17.9 TH/MM3 Lymphocytes # (Auto) 0.7 TH/MM3 Monocytes # (Auto) 0.6 TH/MM3 Eosinophils # (Auto) 0.0 TH/MM3 Basophils # (Auto) 0.0 TH/MM3 CBC Comment DIFF FINAL Differential Comment Sodium Level 144 MEQ/L Potassium Level 3.3 MEQ/L Chloride Level 106 MEQ/L Carbon Dioxide Level 31.8 MEQ/L Anion Gap 6 MEQ/L Blood Urea Nitrogen 13 MG/DL Creatinine 0.73 MG/DL Estimat Glomerular Filtration 87 ML/MIN Rate Random Glucose 179 MG/DL Calcium Level 8.2 MG/DL Magnesium Level 2.3 MG/DL Total Bilirubin 0.3 MG/DL Aspartate Amino Transf 34 U/L (AST/SGOT) Alanine Aminotransferase 37 U/L (ALT/SGPT) Alkaline Phosphatase 52 U/L Total Protein 6.6 GM/DL Albumin 2.9 GM/DL Imaging Last Impressions Chest X-Ray 09/02/16 0600 Signed Impressions: Service Date/Time: Friday, September 02, 2016 04:28 - CONCLUSION: Subtle but stable airspace opacity at the left lung base representing either atelectasis or consolidation. Bayron Foy MD CT Angiography 08/31/16 [id number] Signed Impressions: Service Date/Time: Wednesday, August 31, 2016 10:53 - CONCLUSION: 1. Patchy air space disease on the left lower lobe. 2. Trace pneumo mediastinum and pneumothorax. Leonel Haynes MD FACR Objective Remarks GENERAL: Patient is lying in bed in NAD on BIPAP and Precedex drip. SKIN: Warm and dry. HEAD: Normocephalic. EYES: No scleral icterus. No injection or drainage. NECK: Supple, trachea midline. No JVD or lymphadenopathy. CARDIOVASCULAR: Regular rate and rhythm without murmurs, gallops, or rubs. RESPIRATORY: Breath sounds equal bilaterally. No accessory muscle use. GASTROINTESTINAL: Abdomen soft, non-tender, nondistended. MUSCULOSKELETAL: No cyanosis, or edema. BACK: Nontender without obvious deformity. No CVA tenderness. Date of Insertion: Aug 31, 2016 Date of Insertion: Aug 31, 2016 A/P Assessment and Plan NEURO: Polysubstance abuse with snorting cocaine, Dilaudid, also smoking crack cocaine Anxiety/withdrawal -On Precedex drip wean off and monitor neuro status. Use when necessary Ativan and minimus opiates -Watch closely for withdrawal/seizures -On Cerebyx 100mg IV Q12 RESP: Acute hypoxemic and hypercarbic respiratory failure Acute asthma exacerbation Left lower lobe pneumonia Tiny left pneumothorax small pneumomediastinum -Continue with oxygen keep sat >92% -DuoNeb every 4 hours scheduled and every 2 hours when necessary -Decrease Solumederol 40 mg IV Q12 -NIPPV PRN for resp distress CV: Lactic acidosis- resolved Hypertension -Monitor HR and BP keep MAP>65mmHg GI: -Speech eval, diet per speech : -Monitor renal function , I/O's, electrolytes replacement per protocol -Change IVF- NS 75ml/hr ID: Severe sepsis Left lower lobe pneumonia -Continue Azactam 2 g IV every 8 hours, Flagyl 500 mg IVQ8, Vanco, Levaquin 750 mg IV every 24 hours -Follow up on cultures, check strep pneumonia and Legionella urinary Ag HEME: -Monitor CBC, CMP, coags ENDO: Hypokalemia -Electrolyte replacement per protocol -Sliding-scale insulin if needed PROPH: -Bilateral lower extremity SCDs. Lovenox for DVT prophylaxis. Protonix for GI prophylaxis LINES: -Utilize peripheral IVs, L subclavian central line Level 3 Steve,Alaa MD Sep 02, 2016 09:58
--- NOTE | 2016-09-02 10:20 | HHI.FPPN ---
Subjective Remarks Patient was extubated ~5pm on 09/01, requiring BiPap and anxious upon awakening. Was weaned on Propofol and Fentanyl infusions, now receiving PRN IV Fentanyl. Continues Precedex gtt. No fevers, continuing on antibiotics. Respiratory secretions improved significantly. (Martina Segovia MD R1) Objective Vitals Vital Signs Date Time Temp Pulse Resp B/P Pulse Ox O2 Delivery O2 Flow Rate FiO2 09/02/16 09:57 98 45 09/02/16 07:37 97 45 09/02/16 06:00 73 09/02/16 05:03 20 09/02/16 04:09 98 50 09/02/16 04:00 98.6 82 20 144/77 97 09/02/16 04:00 82 09/02/16 02:00 79 09/02/16 01:11 96 50 09/02/16 00:00 98.2 87 20 179/96 98 09/02/16 00:00 87 09/01/16 22:09 98 50 09/01/16 22:00 97 09/01/16 20:43 98 50 09/01/16 20:00 101 09/01/16 20:00 98.8 101 20 197/103 97 09/01/16 19:03 98 50 09/01/16 18:00 84 09/01/16 17:25 96 Nasal Cannula 6 09/01/16 16:35 94 40 09/01/16 16:35 40 09/01/16 16:00 98.8 83 20 130/63 96 09/01/16 14:00 89 09/01/16 13:00 95 40 09/01/16 12:00 88 09/01/16 12:00 98.6 88 20 113/58 94 I/O 09/01/16 09/01/16 09/01/16 09/02/16 09/02/16 09/02/16 07:00 15:00 23:00 07:00 15:00 23:00 Intake Total 1717 ml 2042 ml 2059 ml 2060 ml Output Total 600 ml 1300 ml 5200 ml 2250 ml Balance 1117 ml 742 ml -3141 ml -190 ml Intake Oral 240 ml IV Total 1717 ml 2042 ml 2059 ml 1820 ml Output Urine Total 500 ml 1200 ml 5200 ml 2250 ml Gastric Drainage Total 100 ml 100 ml (Martina Segovia MD R1) Result Diagram: 09/02/16 0355 09/02/16 0355 Imaging Last Impressions Chest X-Ray 09/02/16 0600 Signed Impressions: Service Date/Time: Friday, September 02, 2016 04:28 - CONCLUSION: Subtle but stable airspace opacity at the left lung base representing either atelectasis or consolidation. Bayron Foy MD CT Angiography 08/31/16 0928 Signed Impressions: Service Date/Time: Wednesday, August 31, 2016 10:53 - CONCLUSION: 1. Patchy air space disease on the left lower lobe. 2. Trace pneumo mediastinum and pneumothorax. Leonel Haynes MD FACR Objective Remarks Gen: patient sedated, on ventilator Chest: regular chest rise, synchrony with vent noted CV: regular rate and rhythm Resp: coarse breath sounds on vent Extremities: some edema noted in hands, she has soft restraints on upper extremities bilaterally, SCDs in place : Oliver draining dark urine, double bottom driver than yesterday Medications and IVs Inpatient Medications Albuterol Sulfate (Albuterol Neb) 1.25 mg Q2HR NEB PRN NEB SHORTNESS OF BREATH ; Start 08/31/16 at 14:00; Stop 08/31/16 at 14:08; Status DC Albuterol/ Ipratropium (Duoneb Neb) 1 ampule Q2HR NEB PRN INH SHORTNESS OF BREATH Last administered on 09/01/16 17:31; Start 08/31/16 at 14:00 Albuterol/ Ipratropium 1 ampule 1 ampule Q4HR NEB NEB Last administered on 07:37; Start 08/31/16 at 20:00 Artificial Tears 1 applic 1 applic Q12HR EACH EYE Last administered on 10:45; Start 09/01/16 at 09:00 Azithromycin/ Sodium Chloride (Zithromax Inj/ NS 250 ml Inj) 250 ml @ 250 mls/ hr ONCE ONCE IV Last administered on 08/31/16 13:31; Start 08/31/16 at 11:00 ; Stop 08/31/16 at 11:59; Status DC Aztreonam 2000 mg/ Sodium Chloride 100 ml @ 200 mls/hr Q8H IV ; Start 08/31/16 at 14:00; Stop 08/31/16 at 16:56; Status DC Aztreonam/Sodium Chloride (Azactam Inj/NS Inj) 100 ml @ 200 mls/hr Q8H IV Last administered on 09/02/16 00:05; Start 08/31/16 at 17:00 Ceftriaxone Sodium 2000 mg/ Sodium Chloride 100 ml @ 200 mls/hr ONCE ONCE IV Last administered on 08/31/16 11:32; Start 08/31/16 at 11:00; Stop 08/31/16 at 11:29; Status DC Chlorhexidine Gluconate (Chlorhexidine 2% Cloth) 3 pack UNSCH PRN TOPICAL HYGIENIC CARE; Start 08/31/16 at 21:15; Stop 09/05/16 at 21:14 Chlorhexidine Gluconate (Peridex 0.12% Liq) 15 ml BID@08,20 MT Last administered on 09/01/16 08:57; Start 08/31/16 at 20:00 Chlorhexidine Gluconate 15 ml 15 ml BID@08,20 MT ; Start 08/31/16 at 20:00; Stop 08/31/16 at 20:00; Status DC Cisatracurium Besylate (Nimbex Inj) 8 mg ONCE PRN IVP VENT DYSYNCHRONY; Start 08/31/16 at 23:45; Stop 09/01/16 at 23:44; Status DC Dexmedetomidine HCl (Precedex Inj) 50 ml @ 0 mls/hr TITRATE IV ; Start 08/31/16 at 13:30; Stop 09/01/16 at 12:35; Status DC Dexmedetomidine HCl 1000 mcg/ Sodium Chloride 250 ml @ 0 mls/hr TITRATE IV Last administered on 09/01/16 23:02; Start 09/01/16 at 22:30 Dexmedetomidine HCl/Sodium Chloride (Precedex Inj/NS Inj) 50 ml @ 0 mls/hr TITRATE IV Last administered on 09/01/16 21:42; Start 09/01/16 at 12:35; Stop 09/01/16 at 22:19; Status DC Enoxaparin Sodium (Lovenox Inj) 40 mg Q24H SQ Last administered on 09/01/16 14 :28; Start 08/31/16 at 14:00 Fentanyl Citrate 250 ml @ 0 mls/hr TITRATE IV Last administered on 09/01/16 03 :00; Start 08/31/16 at 15:45; Stop 09/02/16 at 09:53; Status DC Fentanyl Citrate (fentaNYL INJ) 50 mcg Q1H PRN IV SEE LABEL COMMENTS Last administered on 09/02/16 04:03; Start 08/31/16 at 14:00 Flumazenil (Romazicon Inj) 0.2 mg Q1M PRN IV PUSH SEE LABEL COMMENTS; Start at 14:00 Fosphenytoin Sodium (Cerebyx Inj) 100 mgpe Q12H IV Last administered on 00:05; Start 09/01/16 at 12:00 Fosphenytoin Sodium/Sodium Chloride (Cerebyx Inj/NS Inj) 122 ml @ 390 mls/hr ONCE ONCE IV Last administered on 09/01/16 01:40; Start 08/31/16 at 23:45; Stop 09/01/16 at 00:03; Status DC Furosemide 40 mg 40 mg ONCE ONCE IV PUSH Last administered on 09/01/16 18:32 ; Start 09/01/16 at 18:15; Stop 09/01/16 at 18:16; Status DC Hydralazine HCl 10 mg 10 mg Q6H PRN IV PUSH SBP >165 Last administered on 02:13; Start 09/01/16 at 19:45 Hydromorphone HCl (Dilaudid Pf Inj) 1 mg ONCE ONCE IV PUSH Last administered on 08/31/16 14:33; Start 08/31/16 at 13:45; Stop 08/31/16 at 13:46; Status DC Hydromorphone HCl 0.5 mg 0.5 mg ONCE ONCE IV PUSH Last administered on 13:41; Start 08/31/16 at 13:15; Stop 08/31/16 at 13:17; Status DC Labetalol HCl (Trandate Inj) 10 mg Q4H PRN IV PUSH SBP >165 Last administered on 09/02/16 00:46; Start 09/01/16 at 19:45 Levofloxacin/ Dextrose 150 ml @ 100 mls/hr Q24H IV Last administered on 14:25; Start 08/31/16 at 15:00 Lorazepam (Ativan Inj) 2 mg Q15M PRN IV PUSH CIWA > 20; Start 08/31/16 at 14:00 Lorazepam (Ativan) 2 mg Q2H PRN PO CIWA 11-14; Start 08/31/16 at 14:00 Magnesium Oxide 800 mg 800 mg UNSCH PRN PO For Magnesium 1.2 - 1.6 mg/dL; Start 08/31/16 at 14:30 Magnesium Sulfate 2 gm/Sodium Chloride 100 ml @ 50 mls/hr UNSCH PRN IV For Magnesium 1.2 - 1.6 mg/dL; Start 08/31/16 at 14:30 Magnesium Sulfate/ Sodium Chloride (Magnesium Sulfate Inj/NS Inj) 100 ml @ 50 mls/hr UNSCH PRN IV For Magnesium 0.9 - 1.1 mg/dL; Start 08/31/16 at 14:30 Methylprednisolone Sodium Succinate (SoluMEDROL INJ) 40 mg Q12HR IV PUSH ; Start 09/02/16 at 21:00 Methylprednisolone Sodium Succinate 60 mg 60 mg Q6HR IV PUSH Last administered on 09/02/16 05:51; Start 08/31/16 at 18:00; Stop 09/02/16 at 09:57; Status DC Metronidazole 100 ml @ 100 mls/hr Q8H IV Last administered on 09/02/16 00:05 ; Start 08/31/16 at 16:00 Midazolam HCl (Versed Inj) 4 mg ONCE ONCE IV PUSH Last administered on 20:19; Start 08/31/16 at 20:15; Stop 08/31/16 at 20:16; Status DC Midazolam HCl 2 mg 2 mg Q15M PRN IV PUSH SEDATION; Start 08/31/16 at 23:45 Miscellaneous Information SPECIFIC LAB TO BE DRAWN:VANCOMYCIN TROUGH DATE TO... ONCE ONCE .XX ; Start 09/03/16 at 01:45; Stop 09/03/16 at 01:46 Morphine Sulfate 4 mg 4 mg ONCE ONCE IV PUSH Last administered on 08/31/16 10 :05; Start 08/31/16 at 09:45; Stop 08/31/16 at 09:46; Status DC Naloxone HCl (Narcan Inj) 0.4 mg UNSCH PRN IV SEE LABEL COMMENTS; Start at 13:30 Ondansetron HCl (Zofran Inj) 4 mg ONCE ONCE IV PUSH Last administered on 10:05; Start 08/31/16 at 09:45; Stop 08/31/16 at 09:46; Status DC Pantoprazole Sodium (Protonix Inj) 40 mg DAILY IV Last administered on 08:55; Start 09/01/16 at 09:00 Pharmacy Profile Note 0 ml @ 0 mls/hr UNSCH OTHER ; Start 09/01/16 at 12:30 Pharmacy Profile Note (Vancomycin Consult Pharmacy) 0 ml @ 0 mls/hr UNSCH OTHER ; Start 08/31/16 at 16:15; Stop 09/01/16 at 12:38; Status DC Potassium Phosphate 2000 mg 2,000 mg UNSCH PRN PO/TUBE SEE LABEL COMMENTS; Start 08/31/16 at 14:30 Potassium Phosphate/Sodium Chloride (Potassium Phosphate Inj/NS 250 ml Inj) 260 ml @ 42 mls/hr UNSCH PRN IV SEE LABEL COMMENTS Last administered on 08/31/16 23:54; Start 08/31/16 at 14:30 Potassium Chloride (KCl 40 Meq Premix Inj) 100 ml @ 25 mls/hr BOLUS ONCE IV Last administered on 09/01/16 18:31; Start 09/01/16 at 18:15; Stop 09/01/16 at 22:14; Status DC Propofol 100 ml @ 0 mls/hr TITRATE IV Last administered on 09/01/16 10:43; Start 08/31/16 at 15:45; Stop 09/02/16 at 09:53; Status DC Rocuronium Willet 50 mg 50 mg BOLUS ONCE IV Last administered on 08/31/16 18 :11; Start 08/31/16 at 18:00; Stop 08/31/16 at 18:01; Status DC Rocuronium Willet (Zemuron Inj) 50 mg BOLUS ONCE IV Last administered on 08/31 20:19; Start 08/31/16 at 20:15; Stop 08/31/16 at 20:16; Status DC Sodium Bicarbonate/ Sterile Water (Sodium Bicarbonate 8.4% Inj/Sterile Water For Inj) 1,000 ml @ 150 mls/hr Q6H40M IV Last administered on 09/02/16 05:50 ; Start 08/31/16 at 20:00; Stop 09/02/16 at 09:53; Status DC Sodium Chloride (NS 1000 ml Inj) 1,000 ml @ 75 mls/hr [id number] IV ; Start at 11:00 Sodium Chloride (NS Flush) 2 ml BID IV FLUSH Last administered on 09/01/16 21: 00; Start 08/31/16 at 21:00 Sodium Phosphate/ Sodium Chloride (Sodium Phosphate Inj/NS 250 ml Inj) 250 ml @ 42 mls/hr UNSCH PRN IV For Phosphorus < 2.5 mg/dL; Start 08/31/16 at 14:30 Vancomycin HCl 1000 mg/Sodium Chloride 250 ml @ 250 mls/hr ONCE ONCE IV ; Start 09/01/16 at 12:30; Stop 09/01/16 at 12:37; Status DC Vancomycin HCl/ Sodium Chloride (Vancomycin Inj/ NS 250 ml Inj) 262.5 ml @ 250 mls/hr Q18H IV Last administered on 09/01/16 14:32; Start 09/01/16 at 14:00 ( Martina Segovia MD R1) Urinary Catheter: Yes Assessment to: Continue Date of Insertion: Aug 31, 2016 (Martina Segovia MD R1) Vascular Central Line Catheter: Yes Assessment to: Continue Date of Insertion: Aug 31, 2016 Line: Central Venous Catheter Side: Left Location: Subclavian (Martina Segovia MD R1) A/P Assessment and Plan 46 year old female with history of drug use presenting with respiratory distress , meeting severe sepsis criteria. CTA on admission showing evidence of PNA. Worsening respiratory distress and acidosis warranted intubation on 08/31/16. Discharge Planning Pending clinical improvement, Critical Care currently managing (Martina Segovia MD R1) Attending Attestation Pt. examined and case discussed with resident physicians I have read the above note and agree with the assessment/plan as discussed with me I was involved in all medical decision making for this patient Huang Pacheco MD (Huang Pacheco MD) Problem List: (1) Sepsis Status: Acute Plan: IV antibiotics per critical care as below: - Aztreonam 2 g IV every 8 hours - Vancomycin 1250g every 18 hours - Flagyl 500 mg IV every 8 hours - Levaquin 750 mg IV every 24 hours Hospital Course: Received Rocephin and azithromycin 1 in the emergency department Antibiotics initiated as above on 3/29/17 Meeting sepsis criteria by vital signs, severe sepsis by lactate 5.0, mild THOR. Source identified on CT --> PNA, possible septicemia as well, blood cultures ordered. Blood cultures showing NG x 2 day Sputum cultures ordered by critical care showing normal respiratory jm UA, urine culture unremarkable UDS + opiates Serial lactic acid after bolus and initiation of antibiotics resolved to normal EEG performed which was overall unremarkable S/p 3 L normal saline IV bolus in ED, continued on IVF per CC Monitor renal function closely Monitor on telemetry and vital signs every 4 hours -Critical Care consult placed in ED, patient admitted to MICU and intubated due to inability to protect airway given respiratory distress/acidosis (2) Reactive airway disease Status: Acute Plan: Improved respiratory function, off vent 09/02, now on Bipap with fentanyl and Precedex Medical management as below: -Duonebs q2hr PRN -Solumedrol iv 60mg q6hr -Antibiotics as above (3) Pneumonia Status: Acute Plan: Admission CXR significant for LLL atelectasis vs. PNA. Repeat CXRs 09/01 and 09/02 showing some improvement of airspace disease CTA ordered showing patchy airspace disease in LLL, trace pneumomediastinum and PTX. -Management as above for sepsis and RAD (4) Pneumomediastinum Status: Acute Plan: -Management as above for Reactive Airway Disease. (5) Pneumothorax Status: Acute Plan: -Management as above for Reactive Airway Disease. (6) Polysubstance abuse Status: Acute Plan: History of drug use chronic drug use. Reports Dilaudid 8-24mg snorted , cocaine use 08/30, heroin use 08/30. She passed out after snorting the latter two substances last night, possibly laced. -Ativan q2hr PRN agitation -CIWA protocol -Precedex ordered per Development Engineer for BP and withdrawal symptoms, also IV Fentanyl PRN (7) Elevated troponin Status: Resolved Plan: Troponin 0.08 on admission, increased on trending, now wnl. Differential includes ACS, arrhythmia, coronary artery vasospasm, HTN, hypoperfusion, rhabdomyolysis, PE, sepsis. CTA negative for PE. EKG showing sinus tachycardia. -Likely related to sepsis, hypoperfusion -EKG showing NSR -Telemetry (8) Hypertension Status: Chronic Plan: Reports chronic HTN, was on lisinopril but stopped one month. -Precedex for now given withdrawal -Transition to other meds once weaned off (9) Elevated CK Status: Acute Plan: Acute elevated likely related to prolonged immobilization after drug use , hypoperfusion. Trends being monitored (10) Fluids/Electrolytes/Nutrition/Prophylaxis Status: Acute Plan: Management per Critical Care dw Dr. Pacheco (Martina Segovia MD R1) Problem Qualifiers (1) Pneumonia: Qualified Code: J18.1 - Pneumonia of left lower lobe due to infectious organism (2) Pneumothorax: Qualified Code: J93.9 - Pneumothorax, unspecified type Martina Segovia MD R1 Sep 02, 2016 10:20 Huang Pacheco MD Sep 02, 2016 18:26
[2016-09-02] MEDS: LORazepam 2 MG/ML VIAL IV PUSH PRN ×2 (12:58→15:49)
[2016-09-02] MEDS: SODIUM CHLOR 0.9% 1000 ML INJ 1,000 ML IV SCH (13:07)
[2016-09-02] MEDS: ENOXAPARIN SODIUM 40 MG/0.4 ML SYRINGE SQ SCH (13:07)
[2016-09-02] MEDS: LEVOFLOXACIN 750 MG PREMIX INJ 150 ML IV SCH (15:51)
[2016-09-02] MEDS: ALPRAZolam 0.25 MG TAB PO PRN (17:18)
[2016-09-02] MEDS: HYDROmorphone HCL PF 1 MG/ML VIAL IV PUSH PRN ×2 (17:49→21:37)
[2016-09-02] MEDS: methylPREDNISolone SOD SUCC 40 MG/1 ML VIAL IV PUSH SCH (21:34)
[2016-09-03] VITALS (18 sets, daily range): BP systolic 140–187; BP diastolic 56–106; PULSE 73–123; RESP 20–31; TEMP 97.6–98.9; O2SAT 93–98
[2016-09-03] MEDS: metroNIDAZOLE 500 MG INJ 100 ML IV SCH ×4 (01:27→23:48)
[2016-09-03] MEDS: FOSPHENYTOIN SODIUM 100 MG PE/2 ML VIAL IV SCH (01:27)
[2016-09-03] MEDS: AZTREONAM INJ 2,000 MG in SODIUM CHLORIDE 0.9% INJ 100 ML IV SCH ×3 (01:28→18:02)
[2016-09-03] MEDS: ALPRAZolam 0.25 MG TAB PO PRN ×2 (01:32→10:53)
[2016-09-03] MEDS: SODIUM CHLOR 0.9% 1000 ML INJ 1,000 ML IV SCH (01:32)
[2016-09-03] MEDS ORDERED: PHARMACY ORDERED LAB ONE ×2 (01:45→19:45)
[2016-09-03] MEDS: VANCOMYCIN INJ 1,250 MG in SODIUM CHLOR 0.9% 250 ML INJ 250 ML IV SCH (02:26)
[2016-09-03] MEDS: HYDROmorphone HCL PF 1 MG/ML VIAL IV PUSH PRN ×2 (02:41→07:38)
[2016-09-03 03:45] LABS: AUTOMATED NEUTROPHIL # 14.5 TH/MM3 (1.8-7.7); BASOPHIL % 0.1 % (0.0-2.0); HEMATOCRIT 33.3 % (35.0-46.0); LYMPH % 5.2 % (9.0-44.0); LYMPHOCYTE # 0.8 TH/MM3 (1.0-4.8); MEAN CELL VOLUME 88.9 FL (80.0-100.0); MEAN CORPUSCULAR HEMOGLOBIN 29.4 PG (27.0-34.0); MEAN CORPUSCULAR HGB CONC 33.1 % (32.0-36.0); MONO % 2.3 % (0.0-8.0); NEUT % 92.4 % (16.0-70.0); PLATELET COUNT 273 TH/MM3 (150-450); RED BLOOD COUNT 3.74 MIL/MM3 (4.00-5.30); RED CELL DISTRIBUTION WIDTH 13.8 % (11.6-17.2); WHITE BLOOD COUNT 15.7 TH/MM3 (4.0-11.0)
[2016-09-03 03:46] LABS: BICARBONATE 26.2 MEQ/L (21.0-32.0); MAGNESIUM 2.4 MG/DL (1.5-2.5); POTASSIUM 3.4 MEQ/L (3.5-5.1)
[2016-09-03 03:48] LABS: VANCOMYCIN TROUGH 5.1 MCG/ML (5.0-10.0)
[2016-09-03] MEDS: RESP: ALBUTEROL 2.5 MG/IPRATROPIUM 0.5 MG NEB (SCH) NEB ×6 (03:49→23:43)
[2016-09-03] MEDS: CHLORHEXIDINE GLUCONATE 2 % 1 PACK (2 CLOTHS)(taper/protocol) TOPICAL SCH (03:57)
[2016-09-03 04:12] LABS: HEMO FLAGS AUTO DIFF
[2016-09-03] MEDS: POTASSIUM PHOSPHATE INJ 30 MMOL in SODIUM CHLOR 0.9% 250 ML INJ 250 ML IV PRN ×2 (04:26→21:58)
[2016-09-03 06:42] LABS: SCAN/DIFF AUTO DIFF CONFIRMED
[2016-09-03] MEDS: methylPREDNISolone SOD SUCC 40 MG/1 ML VIAL IV PUSH SCH ×2 (07:38→20:58)
[2016-09-03] MEDS: PANTOPRAZOLE SODIUM 40 MG VIAL IV SCH (07:38)
[2016-09-03] MEDS: SODIUM CHLORIDE 0.9% FLUSH 10 ML FLUSH IV FLUSH SCH ×2 (07:38→20:58)
[2016-09-03] MEDS: ARTIFICIAL TEARS OPTH OINT 3.5 APPLIC/3.5 GM TUBO EACH EYE SCH ×2 (07:39→21:00)
[2016-09-03] MEDS: CHLORHEXIDINE 0.12% (ORAL KIT) 15 ML CUP MT SCH ×2 (07:39→23:51)
--- NOTE | 2016-09-03 10:54 | HHI.FPPN ---
Subjective Remarks Patient was seen and examined this morning. She is now breathing on nasal cannula. She reports she is in active withdrawal characterized by nausea, tremors, total body aches, anxiety, and diarrhea. She requests for her active withdrawal symptoms. She knows that she snorts up to 24 mg of Dilaudid daily when outside the hospital. She did receive 0.5 mg Dilaudid IV this morning which "did nothing" per patient report. She denies any chest pain, shortness of breath, fevers. (Martina Segovia MD R1) Objective Vitals Vital Signs Date Time Temp Pulse Resp B/P Pulse Ox O2 Delivery O2 Flow Rate FiO2 09/03/16 08:21 93 Nasal Cannula 4.00 09/03/16 08:08 14 09/03/16 06:00 74 09/03/16 04:00 73 09/03/16 04:00 97.6 73 20 140/75 93 09/03/16 02:00 79 09/03/16 00:00 98.8 82 21 140/81 93 09/03/16 00:00 82 09/02/16 22:00 107 09/02/16 21:47 93 Nasal Cannula 3.00 09/02/16 20:00 110 09/02/16 20:00 98.9 110 22 108/54 93 09/02/16 18:00 117 09/02/16 16:00 98.1 109 23 106/58 96 09/02/16 16:00 109 09/02/16 14:00 85 09/02/16 12:00 60 09/02/16 12:00 98.4 65 20 193/86 96 I/O 09/02/16 09/02/16 09/02/16 09/03/16 09/03/16 09/03/16 07:00 15:00 23:00 07:00 15:00 23:00 Intake Total 2060 ml 1145 ml 1466 ml 893 ml Output Total 2250 ml 1500 ml 300 ml 500 ml Balance -190 ml -355 ml 1166 ml 393 ml Intake Oral 240 ml 200 ml 120 ml IV Total 1820 ml 945 ml 1466 ml 773 ml Output Urine Total 2250 ml 1500 ml 300 ml 500 ml # Bowel Movements 0 1 (Martina Segovia MD R1) Result Diagram: 09/03/1620409/03/16204 Imaging Last Impressions Chest X-Ray 09/02/16599 Signed Impressions: Service Date/Time: Friday, September 02, 2016 04:28 - CONCLUSION: Subtle but stable airspace opacity at the left lung base representing either atelectasis or consolidation. Bayron Foy MD CT Angiography 08/31/16927 Signed Impressions: Service Date/Time: Wednesday, August 31, 2016 10:53 - CONCLUSION: 1. Patchy air space disease on the left lower lobe. 2. Trace pneumo mediastinum and pneumothorax. Leonel Haynes MD FACR Objective Remarks Gen: Patient is awake and alert on nasal cannula, in no respiratory distress but appears uncomfortable. She is talking in full sentences. Skin: No obvious rashes or bruises. Mild diaphoresis Chest: Equal chest rise. Tachypnea noted CV: regular rate and rhythm without murmurs Resp: Patient has coarse breath sounds throughout the lungs with expiratory wheezing. She has a dry cough. Extremities: SCDs in place. Edema improved. 2+ pulses in upper and lower extremity bilaterally. 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 Bayron Foy MD CT Angiography 08/31/16927 Signed Impressions: Service Date/Time: Wednesday, August 31, 2016 10:53 - CONCLUSION: 1. Patchy air space disease on the left lower lobe. 2. Trace pneumo mediastinum and pneumothorax. Leonel Haynes MD FACR (Martina Segovia MD R1) Urinary Catheter: Yes Assessment to: Continue Oliver insert reason: Measure Accurate Output Date of Insertion: Aug 31, 2016 (Martina Segovia MD R1) Vascular Central Line Catheter: Yes Date of Insertion: Aug 31, 2016 Line: Central Venous Catheter Side: Left Location: Subclavian (Martina Segovia MD R1) A/P Assessment and Plan 46 year old female with history of drug use presenting with respiratory distress , meeting severe sepsis criteria. CTA on admission showing evidence of PNA. Worsening respiratory distress and acidosis warranted intubation on 08/31/16. Discharge Planning Pending clinical improvement, possibly may be transferred to a med/surge floor tomorrow (Martina Segovia MD R1) Attending Attestation Pt. examined and case discussed with resident physician I have read the above note and agree with the assessment/plan as discussed with me I was involved in all medical decision making for this patient Huang Pacheco MD (Huang Pacheco MD) Problem List: (1) Sepsis Status: Acute Plan: IV antibiotics as below: - Aztreonam 2 g IV every 8 hours - Vancomycin 1250g every 18 hours - Flagyl 500 mg IV every 8 hours - Levaquin 750 mg IV every 24 hours Hospital Course: Received Rocephin and azithromycin 1 in the emergency department Antibiotics initiated as above on 08/31/16 Meeting sepsis criteria by vital signs, severe sepsis by lactate 5.0, mild THOR. Source identified on CT --> PNA, possible septicemia as well, blood cultures ordered. Blood cultures showing NG x 2 day Sputum cultures ordered by critical care showing normal respiratory jm UA, urine culture unremarkable UDS + opiates Serial lactic acid after bolus and initiation of antibiotics resolved to normal EEG performed which was overall unremarkable--patient was on cerebyx 09/01-09/03 S/p 3 L normal saline IV bolus in ED, continued on IVF Monitor renal function closely Monitor on telemetry and vital signs every 4 hours Critical Care consult placed in ED, patient admitted to MICU and intubated due to inability to protect airway given respiratory distress/acidosis, extubated , weaned off BiPAP 09/02 (2) Opiate withdrawal Status: Acute Plan: -Ativan 1 mg IV every 4h scheduled -Ativan 1 mg q2hr PRN withdrawal/anxiety -Clonidine 0.1 mg PO every 8 hours scheduled, can titrate up as needed -Gabapentin starting at 300 mg PO TID for restless legs. Anemia may be playing a role. -Loperamide as needed for diarrhea -Will add Methadone 10 mg daily if symptoms are not controlled on Ativan and clonidine History: History of drug use chronic drug use. Patient actively withdrawing from opiates. She snorts up to 24 mg Dilaudid daily. Reports Dilaudid 8-24mg snorted 08/28, cocaine use 08/30, heroin use 08/30. She passed out after snorting the latter two substances 08/30, possibly laced with unknown substances. -Ativan q2hr PRN agitation, discontinued -CIWA protocol, discontinued -Precedex ordered per Medical Research Tech for BP and withdrawal symptoms, also IV Fentanyl PRN (3) Reactive airway disease Status: Acute Plan: Improved respiratory function, off ventilator 09/02, weaned off BiPAP, now on nasal cannula 4L Medical management as below: -Duonebs q2hr PRN -Solumedrol iv 40mg q12hr -Antibiotics as above (4) Pneumonia Status: Acute Plan: Admission CXR significant for LLL atelectasis vs. PNA. Repeat CXRs 09/01 and 09/02 showing some improvement of airspace disease CTA ordered showing patchy airspace disease in LLL, trace pneumomediastinum and PTX. -Management as above for sepsis and RAD (5) Pneumomediastinum Status: Acute Plan: Small, noted on CTA 08/31, not noted on CXRs since. Continue to monitor symptoms and repeat imaging as needed (6) Pneumothorax Status: Acute Plan: Small, noted on CTA 08/31, not noted on CXRs since. Continue to monitor symptoms and repeat imaging as needed (7) Hypertension Status: Chronic Plan: Reports chronic HTN, was on lisinopril but stopped one month prior to admission. -Treat with clonidine 0.1 mg every 8 hours for now, and this can be titrated up -Transition to/add other antihypertensives as needed (8) Elevated troponin Status: Resolved Plan: Troponin 0.08 on admission, increased on trending, now wnl. Differential includes ACS, arrhythmia, coronary artery vasospasm, HTN, hypoperfusion, rhabdomyolysis, PE, sepsis. CTA negative for PE. EKG showing sinus tachycardia. -Likely related to sepsis, hypoperfusion -EKG showing NSR -Telemetry (9) Elevated CK Status: Acute Plan: Acute elevated likely related to prolonged immobilization after drug use , hypoperfusion. Trends being monitored (10) Fluids/Electrolytes/Nutrition/Prophylaxis Status: Acute Plan: Fluids: NS @ 75ml/hr Electrolytes: monitor and replete as needed Nutrition: heart-healthy diet DVT Prophylaxis: Lovenox 40mg subQ q24hr/bilateral SCDs GI Prophylaxis: Protonix 40 mg daily IV dw Dr. Pacheco (Martina Segovia MD R1) Problem Qualifiers (1) Pneumonia: Qualified Code: J18.1 - Pneumonia of left lower lobe due to infectious organism (2) Pneumothorax: Qualified Code: J93.9 - Pneumothorax, unspecified type Martina Segovia MD R1 Sep 03, 2016 10:54 Huang Pacheco MD Sep 03, 2016 14:56
[2016-09-03] MEDS ORDERED: ONDANSETRON HCL 4 MG/2 ML VIAL IV PRN (11:00)
[2016-09-03] MEDS ORDERED: LORazepam 2 MG/ML VIAL IV PUSH PRN (11:15)
--- NOTE | 2016-09-03 11:25 | HHI.CCPN ---
Subjective Remarks/Hospital Course Patient is a 46-year-old female with history of hypertension not on medication and polysubstance abuse who presented to the emergency department in acute severe respiratory distress. She presented with hypoxemia tachycardia and hypertension impending respiratory arrest and was emergently placed on BiPAP by the ER physician. Received 125 mg of Solu-Medrol and [id number] breathing treatments. Slightly improved on BiPAP but continues to be tachypneic with bilateral wheezing. History obtained by [facility] states that she woke up at 5 AM short of breath.She admits to snorting Cocaine and heroin 08/30 evening, and thinks thinks it may have been laced with Fentanyl. She also reports productive cough of yellow-green sputum since this morning. I evaluated the patient in the ED. She has just received 0.5 mg, Ativan and 0.5 mg of Dilaudid. Patient sees anxious tachypneic and tachycardic on the BiPAP. She has bilateral significant wheezing. Received multiple [id number] breathing treatments with DuoNeb so far. I have explained to her that if she is not improving the next 1 hour she'll require endotracheal intubation and mechanical ventilation. Note that her lactic acid was 5 on admission, he received 2 L Ns bolus, repeat lactic acid came back at 6.9. Chest x-ray showed left lower lobe pneumonia. CT chest showed left lower lobe infiltrate, small pneumomediastinum, trace left pneumothorax 09/01/16: Patient was intubated yesterday for worsening hypercarbic respiratory failure and worsening metabolic acidemia. Currently intubated sedated ABG has normalized lactic acid pending. Chest x-ray pending. UO 1.7 L in [address] ordered by Dr[address] Mckay, and was started on Dilantin 09/02 Patient is on BIPAP 03/09 with 45% FIO2 and on Precedex and bicarb drips. Afebrile. 09/03 Patient is on 3L oxygen with good sats. Afebrile. More awake and alert requesting pain meds. Off Precedex drip. Objective Vital Signs Date Time Temp Pulse Resp B/P Pulse Ox O2 Delivery O2 Flow Rate FiO2 09/03/16 08:21 93 Nasal Cannula 4.00 09/03/16 08:08 14 09/03/16 06:00 74 09/03/16 04:00 97.6 140/75 09/02/16 09:57 45 Intake and Output 09/02/16 09/02/16 09/03/16 08:00 16:00 00:00 Intake Total 2060 ml 1145 ml 1466 ml Output Total 2250 ml 1500 ml 300 ml Balance -190 ml -355 ml 1166 ml Result Diagram: 09/03/16 0205 09/03/16 0205 Other Results Laboratory Tests Test 09/03/16 02:05 White Blood Count 15.7 TH/MM3 Red Blood Count 3.74 MIL/MM3 Hemoglobin 11.0 GM/DL Hematocrit 33.3 % Mean Corpuscular Volume 88.9 FL Mean Corpuscular Hemoglobin 29.4 PG Mean Corpuscular Hemoglobin 33.1 % Concent Red Cell Distribution Width 13.8 % Platelet Count 273 TH/MM3 Mean Platelet Volume 8.4 FL Neutrophils (%) (Auto) 92.4 % Lymphocytes (%) (Auto) 5.2 % Monocytes (%) (Auto) 2.3 % Eosinophils (%) (Auto) 0.0 % Basophils (%) (Auto) 0.1 % Neutrophils # (Auto) 14.5 TH/MM3 Lymphocytes # (Auto) 0.8 TH/MM3 Monocytes # (Auto) 0.4 TH/MM3 Eosinophils # (Auto) 0.0 TH/MM3 Basophils # (Auto) 0.0 TH/MM3 CBC Comment AUTO DIFF Differential Comment AUTO DIFF CONFIRMED Sodium Level 145 MEQ/L Potassium Level 3.4 MEQ/L Chloride Level 111 MEQ/L Carbon Dioxide Level 26.2 MEQ/L Anion Gap 8 MEQ/L Blood Urea Nitrogen 22 MG/DL Creatinine 0.79 MG/DL Estimat Glomerular Filtration 79 ML/MIN Rate Random Glucose 179 MG/DL Calcium Level 8.0 MG/DL Phosphorus Level 2.2 MG/DL Magnesium Level 2.4 MG/DL Vancomycin Level Trough 5.1 MCG/ML Imaging Last Impressions Chest X-Ray 09/02/16 0600 Signed Impressions: Service Date/Time: Friday, September 02, 2016 04:28 - CONCLUSION: Subtle but stable airspace opacity at the left lung base representing either atelectasis or consolidation. Bayron Foy MD CT Angiography 08/31/16 0928 Signed Impressions: Service Date/Time: Wednesday, August 31, 2016 10:53 - CONCLUSION: 1. Patchy air space disease on the left lower lobe. 2. Trace pneumo mediastinum and pneumothorax. Leonel Haynes MD FACR Objective Remarks GENERAL: Patient is lying in bed in NAD SKIN: Warm and dry. HEAD: Normocephalic. EYES: No scleral icterus. No injection or drainage. NECK: Supple, trachea midline. No JVD or lymphadenopathy. CARDIOVASCULAR: Regular rate and rhythm without murmurs, gallops, or rubs. RESPIRATORY: Breath sounds equal bilaterally. No accessory muscle use. GASTROINTESTINAL: Abdomen soft, non-tender, nondistended. MUSCULOSKELETAL: No cyanosis, or edema. Neuro: Awake and alert Date of Insertion: Aug 31, 2016 Date of Insertion: Aug 31, 2016 Line: Central Venous Catheter Side: Left Location: Subclavian A/P Assessment and Plan NEURO: Polysubstance abuse with snorting cocaine, Dilaudid, also smoking crack cocaine Anxiety/withdrawal -Off Precedex drip, monitor neuro status -Watch closely for withdrawal/seizures -D/c Cerebyx 100mg IV Q12, EEG: unremarkable, no seizure activity. RESP: Acute hypoxemic and hypercarbic respiratory failure Acute asthma exacerbation Left lower lobe pneumonia Tiny left pneumothorax small pneumomediastinum -Continue with oxygen keep sat >92% -DuoNeb every 4 hours scheduled and every 2 hours when necessary -Taper IV steroids- Solumederol 40 mg IV Q12 -NIPPV PRN for resp distress CV: Lactic acidosis- resolved Hypertension -Monitor HR and BP keep MAP>65mmHg GI: -On PO diet : -Monitor renal function , I/O's, electrolytes replacement per protocol -d/c IVF. will need K, phos replacement today ID: Left lower lobe pneumonia -Continue Azactam 2 g IV every 8 hours, Flagyl 500 mg IVQ8, d/c Vanco and Levaquin -Follow up on cultures- cultures from 08/31 ( blood, Sputum, urine) NGTD HEME: -Monitor CBC, CMP, coags ENDO: Hypokalemia -Electrolyte replacement per protocol -Sliding-scale insulin if needed PROPH: -Bilateral lower extremity SCDs. Lovenox for DVT prophylaxis. Protonix for GI prophylaxis LINES: -Utilize peripheral IVs, L subclavian central line Will sign off Level 3 Ramy Wilson MD Sep 03, 2016 11:25
[2016-09-03] MEDS ORDERED: LOPERAMIDE HCL 2 MG CAP PO PRN (11:45)
[2016-09-03] MEDS ORDERED: HALOPERIDOL LACTATE 5 MG/ML AMP IV PUSH ONE (12:00)
[2016-09-03] MEDS: GABAPENTIN 300 MG CAP PO SCH ×2 (12:07→18:02)
[2016-09-03] MEDS ORDERED: VANCOMYCIN INJ 1,250 MG in SODIUM CHLOR 0.9% 250 ML INJ 250 ML IV SCH (14:00)
[2016-09-03] MEDS ORDERED: HYDROmorphone HCL PF 1 MG/ML VIAL IV PUSH ONE ×2 (14:15→23:00)
[2016-09-03] MEDS: LORazepam 2 MG/ML VIAL IV PUSH SCH ×3 (14:23→23:47)
[2016-09-03] MEDS: cloNIDine HCL 0.1 MG TAB PO SCH ×2 (14:24→20:58)
[2016-09-03] MEDS: ENOXAPARIN SODIUM 40 MG/0.4 ML SYRINGE SQ SCH (14:24)
[2016-09-03] MEDS: METHADONE HCL 10 MG TAB PO SCH (14:28)
[2016-09-03] MEDS: LORazepam 2 MG/ML VIAL IV PUSH PRN (20:57)
[2016-09-03] MEDS: hydrALAZINE HCL 20 MG/ML VIAL IV PUSH PRN (22:56)
[2016-09-03] MEDS ORDERED: ALUMINUM/MAGNESIUM/SIMETH 30 ML CUP PO PRN (23:00)
[2016-09-04] VITALS (16 sets, daily range): BP systolic 142–168; BP diastolic 82–108; PULSE 96–114; RESP 16–24; TEMP 97.7–98.6; O2SAT 92–99
[2016-09-04] MEDS: AZTREONAM INJ 2,000 MG in SODIUM CHLORIDE 0.9% INJ 100 ML IV SCH ×3 (01:03→17:00)
[2016-09-04] MEDS: CHLORHEXIDINE GLUCONATE 2 % 1 PACK (2 CLOTHS)(taper/protocol) TOPICAL SCH (04:00)
[2016-09-04] MEDS: RESP: ALBUTEROL 2.5 MG/IPRATROPIUM 0.5 MG NEB (SCH) NEB ×4 (04:07→15:22)
[2016-09-04] MEDS: LORazepam 2 MG/ML VIAL IV PUSH SCH ×5 (04:39→21:45)
[2016-09-04 05:38] LABS: BASOPHIL % 0.4 % (0.0-2.0); HEMATOCRIT 35.6 % (35.0-46.0); LYMPH % 18.6 % (9.0-44.0); LYMPHOCYTE # 2.5 TH/MM3 (1.0-4.8); MEAN CELL VOLUME 88.8 FL (80.0-100.0); MEAN CORPUSCULAR HEMOGLOBIN 28.9 PG (27.0-34.0); MEAN CORPUSCULAR HGB CONC 32.6 % (32.0-36.0); MONO % 5.6 % (0.0-8.0); NEUT % 75.4 % (16.0-70.0); PLATELET COUNT 268 TH/MM3 (150-450); WHITE BLOOD COUNT 13.3 TH/MM3 (4.0-11.0)
[2016-09-04 05:41] LABS: HEMO FLAGS AUTO DIFF
[2016-09-04] MEDS: cloNIDine HCL 0.1 MG TAB PO SCH ×2 (06:00→12:43)
[2016-09-04 06:26] LABS: BANDS 1 % (0-6); NEUTROPHIL # MANUAL DIFF 10.9 TH/MM3 (1.8-7.7); PLATELET ESTIMATE SMEAR NORMAL (NORMAL); PLATELET MORPHOLOGY NORMAL (NORMAL); POLYS (SEG NEUTROPHILS) 80 % (16-70); PROMYELOCYTES 1 % (0-0); SCAN/DIFF FINAL DIFF MANUAL; WBC DIFF SAMPLE 100
[2016-09-04 06:27] LABS: MAGNESIUM 2.2 MG/DL (1.5-2.5); POTASSIUM 3.5 MEQ/L (3.5-5.1)
[2016-09-04 06:54] LABS: CKMB 1.3 NG/ML (0.5-3.6)
[2016-09-04] MEDS: CHLORHEXIDINE 0.12% (ORAL KIT) 15 ML CUP MT SCH ×2 (08:00→20:00)
[2016-09-04] MEDS: methylPREDNISolone SOD SUCC 40 MG/1 ML VIAL IV PUSH SCH (08:21)
[2016-09-04] MEDS: PANTOPRAZOLE SODIUM 40 MG VIAL IV SCH (08:22)
[2016-09-04] MEDS: metroNIDAZOLE 500 MG INJ 100 ML IV SCH ×3 (08:22→15:25)
[2016-09-04] MEDS: SODIUM CHLORIDE 0.9% FLUSH 10 ML FLUSH IV FLUSH SCH ×2 (08:22→21:46)
[2016-09-04] MEDS: GABAPENTIN 300 MG CAP PO SCH ×3 (08:24→17:14)
[2016-09-04] MEDS: METHADONE HCL 10 MG TAB PO SCH (08:25)
[2016-09-04] MEDS: ARTIFICIAL TEARS OPTH OINT 3.5 APPLIC/3.5 GM TUBO EACH EYE SCH ×2 (08:25→21:00)
[2016-09-04] MEDS: POTASSIUM CHLOR 40 MEQ PREMIX 100 ML IV PRN (08:40)
--- NOTE | 2016-09-04 08:58 | HHI.FPPN ---
Subjective Remarks Patient was seen and examined this morning. She states she feels "much better" since getting Dilaudid 1 mg IV overnight. She states that her breathing is much better and she denies any chest pain, shortness of breath. He states he does have some diarrhea but does not describe it. She is still having shortness of breath with exertion. Critical care signed off yesterday. (Martina Segovia MD R1 ) Objective Vitals Vital Signs Date Time Temp Pulse Resp B/P Pulse Ox O2 Delivery O2 Flow Rate FiO2 09/04/16 06:00 100 09/04/16 05:00 102 09/04/16 04:53 98.6 104 24 156/96 93 09/04/16 04:00 96 09/04/16 03:00 98 09/04/16 02:00 98.4 105 22 168/87 93 09/04/16 02:00 101 09/04/16 01:00 111 09/04/16 00:00 108 09/03/16 23:00 108 09/03/16 22:00 103 09/03/16 21:00 108 09/03/16 20:41 98.4 120 24 178/56 95 09/03/16 20:00 112 09/03/16 19:51 95 Nasal Cannula 3.00 09/03/16 19:00 104 09/03/16 19:00 104 09/03/16 18:00 110 09/03/16 16:00 98.8 111 27 187/106 98 09/03/16 16:00 111 09/03/16 14:53 23 09/03/16 14:00 123 09/03/16 13:07 24 09/03/16 12:00 123 09/03/16 12:00 98.2 123 31 168/80 94 09/03/16 10:00 100 I/O 09/03/16 09/03/16 09/03/16 09/04/16 09/04/16 09/04/16 07:00 15:00 23:00 07:00 15:00 23:00 Intake Total 893 ml 1350 ml 240 ml 1434 ml Output Total 500 ml 1000 ml 750 ml 1600 ml Balance 393 ml 350 ml -510 ml -166 ml Intake Oral 120 ml 480 ml 240 ml 240 ml IV Total 773 ml 870 ml 1194 ml Output Urine Total 500 ml 1000 ml 750 ml 1600 ml # Bowel Movements 1 0 (Martina Segovia MD R1) Result Diagram: 09/04/16 0430 09/04/16 0430 Imaging Last Impressions Chest X-Ray 09/02/16 0600 Signed Impressions: Service Date/Time: Friday, September 02, 2016 04:28 - CONCLUSION: Subtle but stable airspace opacity at the left lung base representing either atelectasis or consolidation. Bayron Foy MD CT Angiography 08/31/16 0928 Signed Impressions: Service Date/Time: Wednesday, August 31, 2016 10:53 - CONCLUSION: 1. Patchy air space disease on the left lower lobe. 2. Trace pneumo mediastinum and pneumothorax. Leonel Haynes MD FACR Objective Remarks Gen: Patient is sleeping comfortable with nasal cannula at 2 L, in no respiratory distress. She appears comfortable. She is talking in full sentences upon awakening. Skin: No obvious rashes or bruises. No evidence of track marin or splinter hemorrhages or other skin findings. Diaphoresis improved. Chest: Equal chest rise. Tachypnea noted. CV: Reg rate and rhythm without murmurs. Resp: Coarse breath sounds noted yesterday was improved. There is diffuse expiratory wheezing. She has a dry cough. Extremities: SCDs in place. Edema improved. 2+ pulses in upper and lower extremity bilaterally. : Oliver draining dark urine, water pumper than yesterday Psych: Patient is less anxious today, though still asks for more Dilaudid Medications and IVs Inpatient Medications Al Hydrox/Mg Hydrox/Simethicone (Mag-Al Plus Susp Liq) 30 ml Q6H PRN PO hearburn Last administered on 09/03/16t 22:58; Start 09/03/16 at 23:00 Albuterol Sulfate (Albuterol Neb) 1.25 mg Q2HR NEB PRN NEB SHORTNESS OF BREATH ; Start 08/31/16 at 14:00; Stop 08/31/16 at 14:08; Status DC Albuterol/ Ipratropium (Duoneb Neb) 1 ampule Q2HR NEB PRN INH SHORTNESS OF BREATH Last administered on 09/01/16t 17:31; Start 08/31/16 at 14:00 Albuterol/ Ipratropium 1 ampule 1 ampule Q4HR NEB NEB Last administered on 09/04 08:50; Start 08/31/16 at 20:00 Alprazolam 0.25 mg 0.25 mg Q8H PRN PO anxiety Last administered on 09/03/16 10: 53; Start 09/02/16 at 17:00; Stop 09/03/16 at 11:12; Status DC Artificial Tears 1 applic 1 applic Q12HR EACH EYE Last administered on 09:00; Start 09/01/16 at 09:00 Azithromycin/ Sodium Chloride (Zithromax Inj/ NS 250 ml Inj) 250 ml @ 250 mls/ hr ONCE ONCE IV Last administered on 08/31/16 13:31; Start 08/31/16 at 11:00 ; Stop 08/31/16 at 11:59; Status DC Aztreonam 2000 mg/ Sodium Chloride 100 ml @ 200 mls/hr Q8H IV ; Start 08/31/16 at 14:00; Stop 08/31/16 at 16:56; Status DC Aztreonam/Sodium Chloride (Azactam Inj/NS Inj) 100 ml @ 200 mls/hr Q8H IV Last administered on 09/04/16 08:23; Start 08/31/16 at 17:00 Ceftriaxone Sodium 2000 mg/ Sodium Chloride 100 ml @ 200 mls/hr ONCE ONCE IV Last administered on 08/31/16 11:32; Start 08/31/16 at 11:00; Stop 08/31/16 at 11:29; Status DC Chlorhexidine Gluconate (Chlorhexidine 2% Cloth) 3 pack UNSCH PRN TOPICAL HYGIENIC CARE; Start 08/31/16 at 21:15; Stop 09/05/16 at 21:14 Chlorhexidine Gluconate (Peridex 0.12% Liq) 15 ml BID@08,20 MT Last administered on 09/03/16 23:51; Start 08/31/16 at 20:00 Chlorhexidine Gluconate 15 ml 15 ml BID@08,20 MT ; Start 08/31/16 at 20:00; Stop 08/31/16 at 20:00; Status DC Cisatracurium Besylate (Nimbex Inj) 8 mg ONCE PRN IVP VENT DYSYNCHRONY; Start 08/31/16 at 23:45; Stop 09/01/16 at 23:44; Status DC Clonidine (Catapres) 0.1 mg Q8HR PO Last administered on 09/04/16 06:00; Start 09/03/16 at 14:00 Dexmedetomidine HCl (Precedex Inj) 50 ml @ 0 mls/hr TITRATE IV ; Start 08/31/16 at 13:30; Stop 09/01/16 at 12:35; Status DC Dexmedetomidine HCl 1000 mcg/ Sodium Chloride 250 ml @ 0 mls/hr TITRATE IV Last administered on 09/01/16 23:02; Start 09/01/16 at 22:30; Stop 09/03/16 at 11:24; Status DC Dexmedetomidine HCl/Sodium Chloride (Precedex Inj/NS Inj) 50 ml @ 0 mls/hr TITRATE IV Last administered on 09/01/16 21:42; Start 09/01/16 at 12:35; Stop 09/01/16 at 22:19; Status DC Enoxaparin Sodium (Lovenox Inj) 40 mg Q24H SQ Last administered on 09/03/16 14: 24; Start 08/31/16 at 14:00 Fentanyl Citrate (fentaNYL INJ) 50 mcg ONCE ONCE IV PUSH Last administered on 09/03/16 12:07; Start 09/03/16 at 12:00; Stop 09/03/16 at 12:02; Status DC Flumazenil (Romazicon Inj) 0.2 mg Q1M PRN IV PUSH SEE LABEL COMMENTS; Start at 14:00 Fosphenytoin Sodium (Cerebyx Inj) 100 mgpe Q12H IV Last administered on 01:27; Start 09/01/16 at 12:00; Stop 09/03/16 at 11:24; Status DC Fosphenytoin Sodium/Sodium Chloride (Cerebyx Inj/NS Inj) 122 ml @ 390 mls/hr ONCE ONCE IV Last administered on 09/01/16 01:40; Start 08/31/16 at 23:45; Stop 09/01/16 at 00:03; Status DC Furosemide 40 mg 40 mg ONCE ONCE IV PUSH Last administered on 09/01/16 18:32 ; Start 09/01/16 at 18:15; Stop 09/01/16 at 18:16; Status DC Gabapentin (Neurontin) 300 mg TID PO Last administered on 09/04/16 08:24; Start 09/03/16 at 13:00 Haloperidol Lactate (Haldol Inj) 2 mg ONCE ONCE IV PUSH Last administered on 12:17; Start 09/03/16 at 12:00; Stop 09/03/16 at 12:02; Status DC Hydralazine HCl 10 mg 10 mg Q6H PRN IV PUSH SBP >165 Last administered on 22:56; Start 09/01/16 at 19:45 Hydromorphone HCl (Dilaudid Pf Inj) 1 mg ONCE ONCE IV PUSH Last administered on 09/04/16 01:02; Start 09/03/16 at 23:00; Stop 09/03/16 at 23:01; Status DC Hydromorphone HCl 0.5 mg 0.5 mg ONCE ONCE IV PUSH Last administered on 13:41; Start 08/31/16 at 13:15; Stop 08/31/16 at 13:17; Status DC Labetalol HCl (Trandate Inj) 10 mg Q4H PRN IV PUSH SBP >165 Last administered on 09/02/16 00:46; Start 09/01/16 at 19:45 Levofloxacin/ Dextrose 150 ml @ 100 mls/hr Q24H IV Last administered on 15:51; Start 08/31/16 at 15:00; Stop 09/03/16 at 11:24; Status DC Loperamide HCl (Imodium) 2 mg Q4H PRN PO DIARRHEA; Start 09/03/16 at 11:45 Lorazepam (Ativan Inj) 1 mg Q2H PRN IV PUSH ANXIETY/WITHDRAWAL Last administered on 09/03/16 20:57; Start 09/03/16 at 11:30 Lorazepam (Ativan) 2 mg Q2H PRN PO [facility] 11-14; Start 08/31/16 at 14:00; Stop at 11:12; Status DC Magnesium Oxide 800 mg 800 mg UNSCH PRN PO For Magnesium 1.2 - 1.6 mg/dL; Start 08/31/16 at 14:30 Magnesium Sulfate 2 gm/Sodium Chloride 100 ml @ 50 mls/hr UNSCH PRN IV For Magnesium 1.2 - 1.6 mg/dL; Start 08/31/16 at 14:30 Magnesium Sulfate/ Sodium Chloride (Magnesium Sulfate Inj/NS Inj) 100 ml @ 50 mls/hr UNSCH PRN IV For Magnesium 0.9 - 1.1 mg/dL; Start 08/31/16 at 14:30 Methadone HCl (Dolophine) 10 mg DAILY PO Last administered on 09/04/16 08:25; Start 09/03/16 at 14:00 Methylprednisolone Sodium Succinate (SoluMEDROL INJ) 40 mg Q12HR IV PUSH Last administered on 09/04/16 08:21; Start 09/02/16 at 21:00 Methylprednisolone Sodium Succinate 60 mg 60 mg Q6HR IV PUSH Last administered on 09/02/16 05:51; Start 08/31/16 at 18:00; Stop 09/02/16 at 09:57; Status DC Metronidazole 100 ml @ 100 mls/hr Q8H IV Last administered on 09/04/16 08:22; Start 08/31/16 at 16:00 Midazolam HCl (Versed Inj) 4 mg ONCE ONCE IV PUSH Last administered on 20:19; Start 08/31/16 at 20:15; Stop 08/31/16 at 20:16; Status DC Midazolam HCl 2 mg 2 mg Q15M PRN IV PUSH SEDATION; Start 08/31/16 at 23:45 Miscellaneous Information SPECIFIC LAB TO BE DRAWN:VANCO TROUGH DATE TO BE DR... ONCE ONCE .XX ; Start 09/04/16 at 13:45; Stop 09/04/16 at 13:45; Status DC Morphine Sulfate 4 mg 4 mg ONCE ONCE IV PUSH Last administered on 08/31/16 10 :05; Start 08/31/16 at 09:45; Stop 08/31/16 at 09:46; Status DC Naloxone HCl (Narcan Inj) 0.4 mg UNSCH PRN IV SEE LABEL COMMENTS; Start at 13:30 Ondansetron HCl (Zofran Inj) 4 mg Q6H PRN IV NAUSEA OR VOMITING; Start 09/03/16 at 11:00 Pantoprazole Sodium (Protonix Inj) 40 mg DAILY IV Last administered on 08:22; Start 09/01/16 at 09:00 Pharmacy Profile Note 0 ml @ 0 mls/hr UNSCH OTHER ; Start 09/01/16 at 12:30; Stop 09/03/16 at 11:24; Status DC Pharmacy Profile Note (Vancomycin Consult Pharmacy) 0 ml @ 0 mls/hr UNSCH OTHER ; Start 08/31/16 at 16:15; Stop 09/01/16 at 12:38; Status DC Potassium Phosphate 2000 mg 2,000 mg UNSCH PRN PO/TUBE SEE LABEL COMMENTS; Start 08/31/16 at 14:30 Potassium Phosphate/Sodium Chloride (Potassium Phosphate Inj/NS 250 ml Inj) 260 ml @ 42 mls/hr UNSCH PRN IV SEE LABEL COMMENTS Last administered on 09/03/16 21:58; Start 08/31/16 at 14:30 Potassium Chloride (KCl 40 Meq Premix Inj) 100 ml @ 25 mls/hr BOLUS ONCE IV Last administered on 09/01/16 18:31; Start 09/01/16 at 18:15; Stop 09/01/16 at 22:14; Status DC Propofol 100 ml @ 0 mls/hr TITRATE IV Last administered on 09/01/16 10:43; Start 08/31/16 at 15:45; Stop 09/02/16 at 09:53; Status DC Rocuronium [place] 50 mg 50 mg BOLUS ONCE IV Last administered on 08/31/16 18 :11; Start 08/31/16 at 18:00; Stop 08/31/16 at 18:01; Status DC Rocuronium [place] (Zemuron Inj) 50 mg BOLUS ONCE IV Last administered on 08/31 20:19; Start 08/31/16 at 20:15; Stop 08/31/16 at 20:16; Status DC Sodium Bicarbonate/ Sterile Water (Sodium Bicarbonate 8.4% Inj/Sterile Water For Inj) 1,000 ml @ 150 mls/hr Q6H40M IV Last administered on 09/02/16 05:50 ; Start 08/31/16 at 20:00; Stop 09/02/16 at 09:53; Status DC Sodium Chloride (NS 1000 ml Inj) 1,000 ml @ 75 mls/hr [id number] IV Last administered on 09/03/16 01:32; Start 09/02/16 at 11:00; Stop 09/03/16 at 11:24; Status DC Sodium Chloride (NS Flush) 2 ml BID IV FLUSH Last administered on 09/04/16 08: 22; Start 08/31/16 at 21:00 Sodium Phosphate/ Sodium Chloride (Sodium Phosphate Inj/NS 250 ml Inj) 250 ml @ 42 mls/hr UNSCH PRN IV For Phosphorus < 2.5 mg/dL; Start 08/31/16 at 14:30 Vancomycin HCl 1000 mg/Sodium Chloride 250 ml @ 250 mls/hr ONCE ONCE IV ; Start 09/01/16 at 12:30; Stop 09/01/16 at 12:37; Status DC Vancomycin HCl 1250 mg/Sodium Chloride 262.5 ml @ 250 mls/hr Q18H IV Last administered on 09/03/16 02:26; Start 09/01/16 at 14:00; Stop 09/03/16 at 09:50; Status DC Vancomycin HCl/ Sodium Chloride (Vancomycin Inj/ NS 250 ml Inj) 262.5 ml @ 250 mls/hr Q12H IV ; Start 09/03/16 at 14:00; Stop 09/03/16 at 14:00; Status DC ( Martina Segovia MD R1) Urinary Catheter: Yes Assessment to: Remove Date of Insertion: Aug 31, 2016 Date of Removal: Sep 04, 2016 (Martina Segovia MD R1) Vascular Central Line Catheter: Yes Assessment to: Continue Date of Insertion: Aug 31, 2016 Line: Central Venous Catheter Side: Left Location: Subclavian (Martina Segovia MD R1) A/P Assessment and Plan 46 year old female with history of drug use presenting with respiratory distress , meeting severe sepsis criteria. CTA on admission showing evidence of PNA. Worsening respiratory distress and acidosis warranted intubation on 08/31/16. Discharge Planning Possibly in the next 2 days. Transferred to Medr floor today (Martina Segovia MD R1) Attending Attestation Patient seen and examined, discussed with resident team. I agree with assessment and management as documented and discussed with me. Pt resting comfortably upon my entrance to room. Nursing reports no new concerns. Increase clonidine dose to 0.2mg to help with withdrawal symptoms and HTN. Pt clinically stable - transfer to med surg floor today. Additional diagnosis: hypokalemia: s/p 40mEq of KCl. Recheck in AM. (Candice Montero MD) Problem List: (1) Sepsis Status: Acute Plan: Plan: 2-D echo ordered today to rule out evidence of endocarditis. Patient denies IV drug use, however, wanted to rule this out. IV antibiotics as below: - Aztreonam 2 g IV every 8 hours (08/31 ) - Flagyl 500 mg IV every 8 hours (08/31 ) - Vancomycin 1250g every 18 hours () - Levaquin 750 mg IV every 24 hours () Hospital Course: Received Rocephin and azithromycin 1 in the emergency department Antibiotics initiated as above on 08/31/16 Meeting sepsis criteria by vital signs, severe sepsis by lactate 5.0, mild THOR. Source identified on CT --> PNA, possible septicemia as well, blood cultures ordered. Blood cultures showing NG Sputum cultures ordered by critical care showing normal respiratory jm UA, urine culture unremarkable UDS + opiates Serial lactic acid after bolus and initiation of antibiotics resolved to normal EEG performed which was overall unremarkable--patient was on cerebyx 09/01-09/03 S/p 3 L normal saline IV bolus in ED, continued on IVF Monitor renal function closely Monitor on telemetry and vital signs every 4 hours Critical Care consult placed in ED, patient admitted to MICU and intubated due to inability to protect airway given respiratory distress/acidosis, extubated , weaned off BiPAP 09/02, on nasal cannula (2) Reactive airway disease Status: Acute Plan: Improved respiratory function, off ventilator 09/02, weaned off BiPAP, now on nasal cannula 2L Medical management as below: -Duonebs q2hr PRN -Solumedrol iv 40mg q12hr, transition to prednisone 40 mg twice a day 09/04 -Antibiotics as above (3) Opiate withdrawal Status: Acute Plan: Plan: We'll Dilaudid. Continue management of opiate withdrawal as below. -Ativan 1 mg IV every 4h scheduled -Ativan 1 mg q2hr PRN withdrawal/anxiety -Clonidine 0.1 mg PO every 8 hours scheduled, can titrate up as needed -Gabapentin starting at 300 mg PO TID for restless legs. Anemia may be playing a role. -Loperamide as needed for diarrhea -Will add Methadone 10 mg daily if symptoms are not controlled on Ativan and clonidine History: History of drug use chronic drug use. Patient actively withdrawing from opiates. She snorts up to 24 mg Dilaudid daily. Reports Dilaudid 8-24mg snorted 08/28, cocaine use 08/30, heroin use 08/30. She passed out after snorting the latter two substances 08/30, possibly laced with unknown substances. -Ativan q2hr PRN agitation, discontinued -CIWA protocol, discontinued -Precedex ordered per Money Examiner for BP and withdrawal symptoms, also IV Fentanyl PRN -Dilaudid 0.51 mg IV given when necessary, last dose 09/04 early a.m. (4) Pneumonia Status: Acute Plan: Admission CXR significant for LLL atelectasis vs. PNA. Repeat CXRs 09/01 and 09/02 showing some improvement of airspace disease CTA ordered showing patchy airspace disease in LLL, trace pneumomediastinum and PTX. -Management as above for sepsis and RAD (5) Pneumomediastinum Status: Acute Plan: Small, noted on CTA 08/31, not noted on CXRs since. Continue to monitor symptoms and repeat imaging as needed (6) Pneumothorax Status: Acute Plan: Small, noted on CTA 08/31, not noted on CXRs since. Continue to monitor symptoms and repeat imaging as needed (7) Hypertension Status: Chronic Plan: BPs [id number] over last 24 hours. Reports chronic HTN, was on lisinopril but stopped one month prior to admission. -Treat with clonidine 0.1 mg every 8 hours for now, and this can be titrated up -Start lisinopril 10 mg daily 09/04 -Transition to/add other antihypertensives as needed (8) Elevated troponin Status: Resolved Plan: Troponin 0.08 on admission, increased on trending, now wnl. Differential includes ACS, arrhythmia, coronary artery vasospasm, HTN, hypoperfusion, rhabdomyolysis, PE, sepsis. CTA negative for PE. EKG showing sinus tachycardia. -Likely related to sepsis, hypoperfusion -EKG showing NSR -Telemetry (9) Elevated CK Status: Acute Plan: Downtrending Acute elevated likely related to prolonged immobilization after drug use, hypoperfusion. (10) Fluids/Electrolytes/Nutrition/Prophylaxis Status: Acute Plan: Fluids: NS @ 75ml/hr Electrolytes: monitor and replete as needed Nutrition: heart-healthy diet DVT Prophylaxis: Lovenox 40mg subQ q24hr/bilateral SCDs GI Prophylaxis: Protonix 40 mg daily IV dw Dr. Montero (Martina Segovia MD R1) Problem Qualifiers (1) Pneumonia: Qualified Code: J18.1 - Pneumonia of left lower lobe due to infectious organism (2) Pneumothorax: Qualified Code: J93.9 - Pneumothorax, unspecified type Martina Segovia MD R1 Sep 04, 2016 08:58 Candice Montero MD Sep 04, 2016 20:18
[2016-09-04 09:10] LABS: BICARBONATE 25.2 MEQ/L (21.0-32.0); POTASSIUM 3.4 MEQ/L (3.5-5.1)
[2016-09-04] MEDS: LISINOPRIL 10 MG TAB PO SCH (10:54)
[2016-09-04] MEDS: ENOXAPARIN SODIUM 40 MG/0.4 ML SYRINGE SQ SCH (12:43)
[2016-09-04] MEDS: hydrALAZINE HCL 20 MG/ML VIAL IV PUSH PRN ×2 (12:43→21:45)
[2016-09-04] MEDS ORDERED: PHARMACY ORDERED LAB ONE (13:45)
[2016-09-04] MEDS: LORazepam 2 MG/ML VIAL IV PUSH PRN (17:14)
[2016-09-04] MEDS: predniSONE 20 MG TAB PO SCH (21:00)
[2016-09-04] MEDS ORDERED: hydrOXYzine HCL 50 MG TAB PO PRN (21:00)
[2016-09-04] MEDS: cloNIDine HCL 0.2 MG TAB PO SCH ×2 (21:44→22:00)
[2016-09-04] MEDS: KETOROLAC TROMETHAMINE 30 MG/ML (IVP) VIAL IV PUSH PRN (21:46)
[2016-09-05] VITALS (9 sets, daily range): BP systolic 108–170; BP diastolic 63–103; PULSE 75–105; RESP 18–20; TEMP 97–98.1; O2SAT 91–94
[2016-09-05] MEDS: LORazepam 2 MG/ML VIAL IV PUSH SCH ×7 (00:14→23:28)
[2016-09-05] MEDS: metroNIDAZOLE 500 MG INJ 100 ML IV SCH ×4 (00:14→23:28)
[2016-09-05] MEDS: AZTREONAM INJ 2,000 MG in SODIUM CHLORIDE 0.9% INJ 100 ML IV SCH ×3 (00:15→18:21)
[2016-09-05] MEDS: CHLORHEXIDINE GLUCONATE 2 % 1 PACK (2 CLOTHS)(taper/protocol) TOPICAL SCH (02:34)
[2016-09-05] MEDS: cloNIDine HCL 0.2 MG TAB PO SCH ×3 (05:34→22:18)
[2016-09-05 07:53] LABS: BASOPHIL % 0.1 % (0.0-2.0); EOSINOPHIL # 0.1 TH/MM3 (0-0.4); EOSINOPHIL % 0.5 % (0.0-4.0); HEMATOCRIT 35.5 % (35.0-46.0); LYMPH % 12.7 % (9.0-44.0); LYMPHOCYTE # 1.2 TH/MM3 (1.0-4.8); MEAN CELL VOLUME 88.8 FL (80.0-100.0); MEAN CORPUSCULAR HEMOGLOBIN 29.5 PG (27.0-34.0); MEAN CORPUSCULAR HGB CONC 33.3 % (32.0-36.0); MONO % 5.7 % (0.0-8.0); PLATELET COUNT 285 TH/MM3 (150-450); RED BLOOD COUNT 3.99 MIL/MM3 (4.00-5.30); RED CELL DISTRIBUTION WIDTH 13.6 % (11.6-17.2); WHITE BLOOD COUNT 9.8 TH/MM3 (4.0-11.0)
[2016-09-05 07:59] LABS: HEMO FLAGS AUTO DIFF
[2016-09-05 08:10] LABS: BICARBONATE 25.7 MEQ/L (21.0-32.0); MAGNESIUM 2.4 MG/DL (1.5-2.5); POTASSIUM 4.5 MEQ/L (3.5-5.1)
[2016-09-05] MEDS: KETOROLAC TROMETHAMINE 30 MG/ML (IVP) VIAL IV PUSH PRN ×2 (08:49→16:20)
[2016-09-05] MEDS: METHADONE HCL 10 MG TAB PO SCH (08:49)
[2016-09-05] MEDS: GABAPENTIN 300 MG CAP PO SCH ×3 (08:49→18:25)
[2016-09-05] MEDS: PANTOPRAZOLE SODIUM 40 MG VIAL IV SCH (08:50)
[2016-09-05] MEDS: predniSONE 20 MG TAB PO SCH ×2 (08:50→22:19)
[2016-09-05] MEDS: SODIUM CHLORIDE 0.9% FLUSH 10 ML FLUSH IV FLUSH SCH ×2 (08:50→21:00)
[2016-09-05] MEDS: LISINOPRIL 10 MG TAB PO SCH ×2 (08:51→17:26)
[2016-09-05] MEDS: CHLORHEXIDINE 0.12% (ORAL KIT) 15 ML CUP MT SCH ×2 (08:51→20:00)
[2016-09-05 09:08] LABS: BANDS 3 % (0-6); EOSINOPHILS 1 % (0-4); MYELOCYTES 1 % (0-0); NEUTROPHIL # MANUAL DIFF 8.2 TH/MM3 (1.8-7.7); PLATELET ESTIMATE SMEAR NORMAL (NORMAL); PLATELET MORPHOLOGY NORMAL (NORMAL); POLYS (SEG NEUTROPHILS) 80 % (16-70); SCAN/DIFF FINAL DIFF MANUAL; TOXIC GRANULATION 1+ (NORMAL); WBC DIFF SAMPLE 100
[2016-09-05] MEDS: ARTIFICIAL TEARS OPTH OINT 3.5 APPLIC/3.5 GM TUBO EACH EYE SCH ×2 (10:16→21:00)
[2016-09-05] MEDS: ENOXAPARIN SODIUM 40 MG/0.4 ML SYRINGE SQ SCH (13:47)
--- NOTE | 2016-09-05 14:46 | HHI.FPPN ---
Subjective Remarks Overnight had withdrawal symptoms: pain and itching. Given Toradol and Hydroxyzine. No further calls. Today she feels same as yesterday, occasionally will get shaky/sweaty but generally feels well. No CP/SOB. Minimal nausea. ( Vik Eaton MD R1) Objective Vitals Vital Signs Date Time Temp Pulse Resp B/P Pulse Ox O2 Delivery O2 Flow Rate FiO2 09/05/16 08:39 97.2 77 18 108/63 92 09/05/16 04:00 97.0 84 19 152/86 94 09/05/16 00:00 98.1 105 19 152/98 93 09/04/16 23:52 16 09/04/16 20:00 97.7 114 18 151/95 93 09/04/16 17:00 97.9 108 16 156/97 95 09/04/16 16:00 98.4 110 23 142/82 96 09/04/16 16:00 110 I/O 09/04/16 09/04/16 09/04/16 09/05/16 09/05/16 09/05/16 07:00 15:00 23:00 07:00 15:00 23:00 Intake Total 1434 ml 1435 ml 480 ml 240 ml Output Total 1600 ml 2175 ml Balance -166 ml -740 ml 480 ml 240 ml Intake Oral 240 ml 300 ml 480 ml 240 ml IV Total 1194 ml 1135 ml Output Urine Total 1600 ml 2175 ml # Voids 3 2 # Bowel Movements 0 (Vik Eaton MD R1) Result Diagram: 09/05/1633 09/05/16 0633 Imaging Last Impressions Chest X-Ray 09/02/16 06 Signed Impressions: Service Date/Time: Friday, September 02, 2016 04:28 - CONCLUSION: Subtle but stable airspace opacity at the left lung base representing either atelectasis or consolidation. Bayron Foy MD CT Angiography 08/31/16927 Signed Impressions: Service Date/Time: Wednesday, August 31, 2016 10:53 - CONCLUSION: 1. Patchy air space disease on the left lower lobe. 2. Trace pneumo mediastinum and pneumothorax. Leonel Haynes MD FACR Objective Remarks Gen: Patient is sitting in bed comfortably with nasal cannula at 2 L, in no respiratory distress. Skin: No obvious rashes or bruises. No evidence of track marin or splinter hemorrhages or other skin findings. Chest: Equal chest rise. Tachypnea noted. CV: NRRR without murmurs. Resp: Coarse breath sounds, improved. No crackles or wheezing on today's exam. She has a dry cough. Extremities: No cyanosis or edema. 2+ pulses in upper and lower extremity bilaterally. Psych: Patient is less anxious today (Vik Eaton MD R1) Date of Insertion: Aug 31, 2016 Date of Removal: Sep 04, 2016 (Vik Eaton MD R1) Date of Insertion: Aug 31, 2016 Line: Central Venous Catheter Side: Left Location: Subclavian (Vik Eaton MD R1) A/P Assessment and Plan 46 year old female with history of drug use presenting with respiratory distress , meeting severe sepsis criteria. CTA on admission showing evidence of PNA. Worsening respiratory distress and acidosis warranted intubation on 08/31/16. ( Vik Eaton MD R1) Attending Attestation Patient seen, examined and discussed with resident team. I agree with assessment and management as documented and discussed with me. Pt reports mild withdrawal symptoms. She reports that she is either withdrawing or having a fix and she does not believe we can help her with this. She also reports that she has information for rehab facility and plans to contact them after discharge. She denies SOB, cough. Anticipate discharge tomorrow. Echo is pending, which could change course of antibiotics if positive for endocarditis (although blood cultures negative). ( Candice Montero MD) Problem List: (1) Opiate withdrawal Status: Acute Plan: Plan: Meds as below. Avoid opiates except methadone if possible, but if withdrawal symptoms persist despite clonidine etc. then can add 5 mg oxycodone PRN every 4 hours for withdrawal -Ativan 1 mg IV every 4h scheduled -Ativan 1 mg q2hr PRN withdrawal/anxiety -Clonidine 0.2 mg PO every 8 hours scheduled, can titrate up as needed -Gabapentin starting at 300 mg PO TID for restless legs. Anemia may be playing a role. -Loperamide as needed for diarrhea -Methadone 10 mg daily History: History of drug use chronic drug use. Patient actively withdrawing from opiates. She snorts up to 24 mg Dilaudid daily. Reports Dilaudid 8-24mg snorted 08/28, cocaine use 08/30, heroin use 08/30. She passed out after snorting the latter two substances 08/30, possibly laced with unknown substances. -Ativan q2hr PRN agitation, discontinued -CIWA protocol, discontinued -Precedex ordered per [employer] for BP and withdrawal symptoms, also IV Fentanyl PRN -Dilaudid 0.51 mg IV given when necessary, last dose 09/04 early a.m., now discontinued (2) Sepsis Status: Resolved Plan: Plan: 2-D echo ordered to rule out evidence of endocarditis. Patient denies IV drug use but important to rule out. IV antibiotics as below: - Aztreonam 2 g IV every 8 hours (08/31 ) - Flagyl 500 mg IV every 8 hours (08/31 ) - Vancomycin 1250g every 18 hours () - Levaquin 750 mg IV every 24 hours () Hospital Course: Received Rocephin and azithromycin 1 in the emergency department Antibiotics initiated as above on 08/31/16 Meeting sepsis criteria by vital signs, severe sepsis by lactate 5.0, mild THOR. Source identified on CT --> PNA, possible septicemia as well, blood cultures ordered. Blood cultures showing NG Sputum cultures ordered by critical care showing normal respiratory jm UA, urine culture unremarkable UDS + opiates Serial lactic acid after bolus and initiation of antibiotics resolved to normal EEG performed which was overall unremarkable--patient was on cerebyx 09/01-09/03 S/p 3 L normal saline IV bolus in ED, continued on IVF Monitor renal function closely Monitor on telemetry and vital signs every 4 hours Critical Care consult placed in ED, patient admitted to MICU and intubated due to inability to protect airway given respiratory distress/acidosis, extubated , weaned off BiPAP 09/02, on nasal cannula (3) Pneumonia Status: Acute Plan: Admission CXR significant for LLL atelectasis vs. PNA. Repeat CXRs 09/01 and 09/02 showing some improvement of airspace disease CTA ordered showing patchy airspace disease in LLL, trace pneumomediastinum and PTX. -Management as above for sepsis and RAD - Will need 7 total antibiotic days with coverage for aspiration organisms; day 1 = 08/31, day 7 = 3/5 (4) Reactive airway disease Status: Acute Plan: Improved respiratory function, off ventilator 09/02, weaned off BiPAP, now on nasal cannula 2L -Duonebs q2hr PRN -Solumedrol iv 40mg q12hr, transitioned to prednisone 40 mg twice a day 4/2 -Antibiotics as above (5) Pneumomediastinum Status: Resolved Plan: Small, noted on CTA 08/31, not noted on CXRs since. Continue to monitor symptoms and repeat imaging as needed (6) Pneumothorax Status: Resolved Plan: Small, noted on CTA 08/31, not noted on CXRs since. Continue to monitor symptoms and repeat imaging as needed (7) Hypertension Status: Chronic Plan: BPs 150-155/85-100 over last 24 hours. Reports chronic HTN, was on lisinopril but stopped one month prior to admission. -Treat with clonidine as above -Lisinopril 10 mg daily added 4/2 -Add other antihypertensives as needed (8) Elevated troponin Status: Resolved Plan: Troponin 0.08 on admission, increased on trending, now wnl. Differential includes ACS, arrhythmia, coronary artery vasospasm, HTN, hypoperfusion, rhabdomyolysis, PE, sepsis. CTA negative for PE. EKG showing sinus tachycardia. -Likely related to sepsis, hypoperfusion -EKG showing NSR -Telemetry (9) Elevated CK Status: Resolved Plan: Downtrending Acute elevated likely related to prolonged immobilization after drug use, hypoperfusion. (10) Fluids/Electrolytes/Nutrition/Prophylaxis Status: Acute Plan: Fluids: Oral only Electrolytes: monitor and replete as needed Nutrition: heart-healthy diet DVT Prophylaxis: Lovenox 40mg subQ q24hr/bilateral SCDs GI Prophylaxis: Protonix 40 mg daily IV sdw Dr. Montero, Dr. Chi Barber (Vik Eaton MD R1) Problem Qualifiers (1) Pneumonia: Qualified Code: J18.1 - Pneumonia of left lower lobe due to infectious organism (2) Pneumothorax: Qualified Code: J93.9 - Pneumothorax, unspecified type Vik Eaton MD R1 Sep 05, 2016 14:46 Candice Montero MD Sep 05, 2016 19:59
--- NOTE | 2016-09-05 15:34 | EC ---
Study Study Date:09/05/2016 STUDY CONCLUSIONS SUMMARY - Left ventricle: The cavity size was normal. Wall thickness was normal. Systolic function was normal. The estimated ejection fraction was in the range of 55% to 60%. Wall motion was normal; there were no regional wall motion abnormalities. - Aortic valve: Valve area: 2.81cm^2(VTI). Valve area: 2.62cm^2 (Vmax). If LV function is below 40, please consider prescribing an ACEI or ARB or document rationale for non-use. PROCEDURE DATA STUDY STATUS: Elective. Procedure: Transthoracic echocardiography. Image quality was good. Scanning was performed from the parasternal, apical, and subcostal acoustic windows. Study completion: The patient tolerated the procedure well. Transthoracic echocardiography. M-mode, complete 2D, complete spectral Doppler, and color Doppler. Height: Height: 65in. Weight: Weight: 181.6lb. Body mass index: BMI: 30.3kg/m^2. Body surface area: BSA: 1.9m^2. Patient status: Inpatient. CARDIAC ANATOMY LEFT VENTRICLE: The cavity size was normal. Wall thickness was normal. Systolic function was normal. The estimated ejection fraction was in the range of 55% to 60%. Wall motion was normal; there were no regional wall motion abnormalities. AORTIC VALVE: Trileaflet; normal thickness leaflets. Doppler: Transvalvular velocity was within the normal range. There was no stenosis. No regurgitation. Valve area: 2.81cm^2(VTI). Indexed valve area: 1.48cm^2/m^2 (VTI). Valve area: 2.62cm^2 (Vmax). Indexed valve area: 1.38cm^2/m^2 (Vmax). Mean gradient: 3mm Hg (S). AORTA: Aortic root: The aortic root was normal in size. MITRAL VALVE: Structurally normal valve. Doppler: Transvalvular velocity was within the normal range. There was no evidence for stenosis. Trace regurgitation. LEFT ATRIUM: The atrium was normal in size. RIGHT VENTRICLE: The cavity size was normal. Wall thickness was normal. PULMONIC VALVE: Doppler: Transvalvular velocity was within the normal range. There was no evidence for stenosis. No regurgitation. TRICUSPID VALVE: Structurally normal valve. Doppler: Transvalvular velocity was within the normal range. Trace regurgitation. PULMONARY ARTERY: The main pulmonary artery was normal-sized. Systolic pressure was within the normal range. RIGHT ATRIUM: The atrium was normal in size. PERICARDIUM: There was no pericardial effusion. SYSTEMIC VEINS: Inferior vena cava: The vessel was normal in size. Patient weight: 181.6lb _Ejection fraction:_ 65-75% _Fractional shortening:_ 32% up to 5Kg 5-11.5Kg 11.6-22.9Kg 23-45Kg 45-57Kg Aortic Root 7-13 <17 13-22 17-27 17-27 LA diam 6-13 <23 24-38 33-47 37-40 RVID 10-17 7-15 7-15 7-18 8-17 LVIDd 12-22 <32 24-38 33-47 37-40 LVPW 2-4 3-6 5-7 6-8 7-8 IVS 2-4 3-6 5-7 6-8 7-8 BASIC MEASUREMENTS ADULT NORMAL Left ventricle LV internal dimension, ED, chordal 45.3 mm 43-52 level, PLAX LV internal dimension, ES, chordal 33.1 mm 23-38 level, PLAX Fractional shortening, chordal level, *27 % >29 PLAX LV posterior wall thickness, ED 11.2 mm IVS/LVPW ratio, ED 0.9 <1.3 Ventricular septum Septal thickness, ED 10.1 mm Aortic valve Leaflet separation 21 mm 15-26 Aorta Root diameter, ED 29 mm Left atrium Anterior-posterior dimension 26 mm Anterior-posterior dimension index 1.37 cm/m^2 <2.2 BASIC MEASUREMENTS ADULT NORMAL Aortic valve Leaflet separation 21 mm 15-26 DOPPLER MEASUREMENTS ADULT NORMAL Aortic valve Peak velocity, S 130 cm/s Mean velocity, S 80.7 cm/s VTI, S 23.6 cm Mean gradient, S 3 mm Hg Valve area, VTI 2.81 cm^2 Valve area index, VTI 1.48 cm^2/m^2 Valve area, Vmax 2.62 cm^2 Valve area index, Vmax 1.38 cm^2/m^2 Mitral valve Peak E-wave velocity 68.6 cm/s Peak A-wave velocity 79.5 cm/s Deceleration time 173 ms 150-230 Peak E/A ratio 0.9 Tricuspid valve Regurgitant peak velocity 205 cm/s Peak RV-RA gradient, S 17 mm Hg Maximal regurgitant velocity 205 cm/s Pulmonic valve Peak velocity, S 62.4 cm/s LEGEND: Mean values are shown as u=mean value. Asterisk (*) marin values outside specified normal range. Prepared and signed by Harshil Ibarra [id number]
[2016-09-06] VITALS: BP 142/78; PULSE 79; RESP 18; TEMP 97.7; O2SAT 93
[2016-09-06] MEDS: AZTREONAM INJ 2,000 MG in SODIUM CHLORIDE 0.9% INJ 100 ML IV SCH (00:58)
[2016-09-06] MEDS: LORazepam 2 MG/ML VIAL IV PUSH SCH ×2 (03:18→07:13)
[2016-09-06 04:00] VITALS: BP 173/97; PULSE 81; RESP 20; TEMP 97.1; O2SAT 91
[2016-09-06] MEDS: cloNIDine HCL 0.2 MG TAB PO SCH (05:11)
[2016-09-06 06:18] LABS: BICARBONATE 24.2 MEQ/L (21.0-32.0); POTASSIUM 4.3 MEQ/L (3.5-5.1)
[2016-09-06 06:39] LABS: CRITICAL VALUE YES
[2016-09-06 07:26] VITALS: PULSE 87
[2016-09-06 08:00] VITALS: BP_SYST 156; BP_SYST 175; BP_DIAS 98; BP_DIAS 99; PULSE 66; RESP 16; TEMP 96.7; O2SAT 93
--- NOTE | 2016-09-06 08:29 | HHI.FPPN ---
Subjective Remarks Patient resting in bed. She reports that coughing is improved, though she does continue to have some coughing with sputum production. She has no fevers and leukocytosis has resolved. She reports no dyspnea. She continues to have some wheezing. She is continuing to take prednisone. She has not had a DuoNeb treatment since 09/01. Regarding opiate withdrawal symptoms, she has some nausea , no vomiting, leg aches at night, and sweats. These are somewhat relieved by her current regimen of benzodiazepine, clonidine, and methadone. She appears comfortable in the room currently. We discussed her post-discharge plans at length. She has two numbers to substance abuse centers, and I encouraged her to call and make an appointment before discharge. We also discussed possibilities of Suboxone or methadone maintenance treatment. She is initially opposed to maintenance therapy but we discussed the benefits of these treatments and the fact that maintenance therapy is better than relapsing. She is hoping to quit cold turkey, which has a very high failure rate. We discussed triggers and other strategies to avoid using illicit drugs. (Eligio Duran MD R2) Objective Vitals Vital Signs Date Time Temp Pulse Resp B/P Pulse Ox O2 Delivery O2 Flow Rate FiO2 09/06/16 07:26 87 09/06/16 04:00 97.1 81 20 173/97 91 09/06/16 00:00 97.7 79 18 142/78 93 09/05/16 20:23 97 09/05/16 20:00 97.4 95 18 135/81 92 09/05/16 18:31 87 18 156/101 93 09/05/16 18:30 18 09/05/16 17:26 16 09/05/16 16:26 16 09/05/16 16:00 97.8 90 20 170/103 94 09/05/16 14:43 92 21 09/05/16 12:00 97.7 75 20 144/87 91 09/05/16 08:39 97.2 77 18 108/63 92 I/O 09/05/16 09/05/16 09/05/16 09/06/16 09/06/16 09/06/16 07:00 15:00 23:00 07:00 15:00 23:00 Intake Total 240 ml 240 ml 248 ml Balance 240 ml 240 ml 248 ml Intake Oral 240 ml 240 ml IV Total 248 ml # Voids 2 4 # Bowel Movements 1 (Eligio Duran MD R2) Result Diagram: 09/05/16 0633 09/06/16 0510 Objective Remarks Gen: Sitting in bed, appears comfortable, no distress. Skin: No obvious rashes or bruises. No evidence of track marin or splinter hemorrhages. CV: NRRR without murmurs. Resp: Mild expiratory wheezing bilaterally, no distress Extremities: No cyanosis or edema. 2+ pulses in upper and lower extremity bilaterally. Psych: Sitting in bed, has normal insight currently, no suicidal ideation (Eligio Duran MD R2) Date of Insertion: Aug 31, 2016 Date of Removal: Sep 04, 2016 (Eligio Duran MD R2) Date of Insertion: Aug 31, 2016 Line: Central Venous Catheter Side: Left Location: Subclavian (Eligio Duran MD R2) A/P Assessment and Plan 46 year old female with history of drug use presenting with respiratory distress , initially met severe sepsis criteria. CTA on admission showed evidence of PNA. Worsening respiratory distress and acidosis warranted intubation on . Currently extubated, comfortable, has lingering cough and mild wheezing, and mild opiate withdrawal symptoms. Discharge Planning Plan for discharge today, case management involved in helping her find follow up substance abuse treatment options. I encouraged her to make a follow up appointment before she leaves. Discussed options, including Suboxone or methadone treatment as an outpatient. (Eligio Duran MD R2) Attending Attestation Patient seen and examined, discussed with resident team. I agree with assessment and management as documented and discussed with me. Pt stable clinically. Encouraged avoidance of opiate abuse. Reviewed negative/normal echo. Discharge home today (Candice Montero MD) Problem List: (1) Opiate withdrawal Status: Acute Plan: History of drug use chronic drug use. She snorts up to 24 mg Dilaudid daily. Reports Dilaudid 8-24mg snorted 08/28, cocaine use 08/30, heroin use 08/30. She passed out after snorting the latter two substances 08/30, possibly laced with unknown substances. -Ativan 1 mg IV every 4h scheduled -Ativan 1 mg q2hr PRN withdrawal/anxiety -Clonidine 0.2 mg PO every 8 hours scheduled -Gabapentin starting at 300 mg PO TID for restless legs. -Loperamide as needed for diarrhea -Methadone 10 mg daily -Would benefit from opioid maintenance therapy as an outpatient combined with mental health counseling. Giving contact information for patient to follow up on. Appreciate assistance of case management in this endeavor. (2) Pneumonia Status: Acute Plan: Admission CXR significant for LLL atelectasis vs. PNA. Likely aspiration pneumonia during respiratory distress. - Continue Flagyl and Aztreonam, day 6 today - Clindamycin for two more days as an outpatient - Needs PCP to establish with, will refer (3) Reactive airway disease Status: Chronic Plan: Improved respiratory function, off ventilator 09/02, weaned off BiPAP, now on nasal cannula 2L -Duonebs PRN -Day 5 of steroid treatment, will discontinue at discharge -Antibiotics as above (4) Hypertension Status: Chronic Plan: BPs elevated, likely at least partially due to withdrawals. Reports chronic HTN, was on lisinopril but stopped one month prior to admission. -Treat with clonidine as above -Lisinopril 10 mg daily added 09/04 (5) Fluids/Electrolytes/Nutrition/Prophylaxis Status: Acute Plan: Fluids: Oral only Electrolytes: monitor and replete as needed Nutrition: heart-healthy diet DVT Prophylaxis: Lovenox 40mg subQ q24hr/bilateral SCDs sdw Dr. Uma Montero (Eligio Duran MD R2) Problem Qualifiers (1) Pneumonia: Qualified Code: J18.1 - Pneumonia of left lower lobe due to infectious organism Eligio Duran MD R2 Sep 06, 2016 08:29 Candice Montero MD Sep 06, 2016 19:33
[2016-09-06] MEDS ORDERED: LISI10TA3 PO (08:36)
[2016-09-06] MEDS ORDERED: LORA1TAB12 PO (08:36)
[2016-09-06] MEDS ORDERED: NEUR300C PO (08:36)
[2016-09-06] MEDS ORDERED: IBUP800T23 PO (08:36)
[2016-09-06] MEDS ORDERED: CLIN1CAP6 PO (08:36)
[2016-09-06] MEDS ORDERED: CLON.2 PO (08:36)
--- NOTE | 2016-09-06 08:37 | HHI.DCPOC ---
Discharge Care Plan Diagnosis: (1) Respiratory distress (2) Pneumonia (3) Polysubstance abuse (4) Opiate withdrawal Goals to Promote Your Health * To prevent worsening of your condition and complications * To maintain your health at the optimal level Directions to Meet Your Goals Take your medications as prescribed Follow your dietary instruction Follow activity as directed Keep your appointments as scheduled Take your immunizations and boosters as scheduled If your symptoms worsen call your PCP, if no PCP go to Urgent Care Center or Emergency Room Smoking is Dangerous to Your Health. Avoid second hand smoke Call the 24-hour hour crisis hotline for domestic abuse at Eligio Duran MD R2 Sep 06, 2016 08:37
[2016-09-06] MEDS ORDERED: PERC10TA27 PO (08:39)
[2016-09-06] MEDS: LISINOPRIL 10 MG TAB PO SCH (08:48)
[2016-09-06] MEDS: METHADONE HCL 10 MG TAB PO SCH (08:48)
[2016-09-06] MEDS: predniSONE 20 MG TAB PO SCH (08:48)
[2016-09-06] MEDS: GABAPENTIN 300 MG CAP PO SCH (08:48)
[2016-09-06] MEDS: CHLORHEXIDINE 0.12% (ORAL KIT) 15 ML CUP MT SCH (08:50)
[2016-09-06] MEDS: PANTOPRAZOLE SODIUM 40 MG VIAL IV SCH (08:50)
[2016-09-06] MEDS: SODIUM CHLORIDE 0.9% FLUSH 10 ML FLUSH IV FLUSH SCH (08:50)
[2016-09-06] MEDS: ARTIFICIAL TEARS OPTH OINT 3.5 APPLIC/3.5 GM TUBO EACH EYE SCH (08:50)
[2016-09-06] MEDS ORDERED: metroNIDAZOLE 500 MG TAB PO SCH (09:00)
--- NOTE | 2016-09-06 16:56 | HHI.DS ---
Discharge Summary Admission Date Aug 31, 2016 at 12:55 pm Discharge Date: Sep 06, 2016 Admitting Diagnosis respiratory distress, pneumonia, pneumomediastinum, pneumothorax (1) Opiate withdrawal Diagnosis: Principal Plan: History of drug use chronic drug use. She snorts up to 24 mg Dilaudid daily. Reports Dilaudid 8-24mg snorted 08/28, cocaine use 08/30, heroin use 08/30. She passed out after snorting the latter two substances 08/30, possibly laced with unknown substances. -Clonidine 0.2 mg PO every 8 hours scheduled -Ativan PO 1 mg every 4-6 hours as needed for anxiety -Gabapentin 300 mg PO TID for restless legs. -Loperamide as needed for diarrhea -Would benefit from opioid maintenance therapy as an outpatient combined with mental health counseling. Giving contact information for patient to follow up on. Appreciate assistance of case management in this endeavor. (2) Pneumonia Diagnosis: Principal Plan: Admission CXR significant for LLL atelectasis vs. PNA. Likely aspiration pneumonia during respiratory distress. - S/p aztreonam, flagyl x 6 days - Clindamycin for two more days as an outpatient - Needs PCP to establish with, will refer (3) Reactive airway disease Diagnosis: Secondary Plan: Improved respiratory function, off ventilator 09/02, weaned off BiPAP, now on nasal cannula 2L -Duonebs PRN -Day 5 of steroid treatment, will discontinue at discharge -Antibiotics as above (4) Hypertension Diagnosis: Secondary Plan: BPs elevated, likely at least partially due to withdrawals. Reports chronic HTN, was on lisinopril but stopped one month prior to admission. -Treat with clonidine as above -Lisinopril 10 mg daily added / (5) Fluids/Electrolytes/Nutrition/Prophylaxis Diagnosis: Secondary Plan: Fluids: Oral only Electrolytes: monitor and replete as needed Nutrition: heart-healthy diet DVT Prophylaxis: Lovenox 40mg subQ q24hr/bilateral SCDs sdw Dr. [facility] - Dr. Verma, Dr. Manley Brief History 46-year-old female presenting to the hospital with respiratory distress. She has a history of polysubstance abuse including snorting heroin, smoking crack cocaine, and snorting opiates. She states that yesterday she had taken an unknown amount of Dilaudid, smoked crack cocaine, and snorted heroin at home with her roommate and roommate's friend. She then "passed out" and woke up this morning. Her roommate's friend appeared to be altered and confused and this caused her to become very agitated. She feels that the heroin that she started may have been laced with another medication, maybe fentanyl. She endorses back pain, she endorses headaches, she endorses significant shortness of breath and inability to catch her breath associated with a cough productive of yellow/green sputum. She also is very anxious at this time. She denies any emesis, she denies any neck pain, denies any fevers or chills at this time. She adamantly denies injecting any medications IV. She was treated with 3 breathing treatments in route to the hospital via [facility] without any improvement of her shortness of breath or wheezing. She was placed on BiPAP in the emergency department by the ER physician and received 125 mg of Solu-Medrol associated with another breathing treatment that has not improved her respiratory status. CBC/BMP: 09/05/16 0633 09/06/16 0510 Significant Findings Laboratory Tests Test 09/03/16 09/04/16 09/04/16 09/05/16 16:49 04:30 08:38 06:33 Potassium Level 3.0 MEQ/L 3.4 MEQ/L (3.5-5.1) (3.5-5.1) Phosphorus Level 1.7 MG/DL (2.5-4.9) White Blood Count 13.3 TH/MM3 (4.0-11.0) Neutrophils (%) (Auto) 75.4 % 81.0 % (16.0-70.0) (16.0-70.0) Neutrophils # (Auto) 10.0 TH/MM3 8.0 TH/MM3 (1.8-7.7) (1.8-7.7) Neutrophils % (Manual) 80 % (16-70) 80 % (16-70) Neutrophils # (Manual) 10.9 TH/MM3 8.2 TH/MM3 (1.8-7.7) (1.8-7.7) Promyelocytes 1 % (0-0) Random Glucose 114 MG/DL 174 MG/DL (74-106) (74-106) Calcium Level 7.9 MG/DL 7.9 MG/DL 8.2 MG/DL (8.5-10.1) (8.5-10.1) (8.5-10.1) Total Creatine Kinase 627 U/L (26-192) Chloride Level 109 MEQ/L 110 MEQ/L (98-107) (98-107) Red Blood Count 3.99 MIL/MM3 (4.00-5.30) Myelocytes 1 % (0-0) Toxic Granulation 1+ (NORMAL) Test 09/06/16 05:10 Chloride Level 110 MEQ/L (98-107) Random Glucose 146 MG/DL (74-106) Calcium Level 8.4 MG/DL (8.5-10.1) Imaging Last Impressions Chest X-Ray 09/02/16 0600 Signed Impressions: Service Date/Time: Friday, September 02, 2016 04:28 - CONCLUSION: Subtle but stable airspace opacity at the left lung base representing either atelectasis or consolidation. Bayron Foy MD CT Angiography 08/31/16 0928 Signed Impressions: Service Date/Time: Wednesday, August 31, 2016 10:53 - CONCLUSION: 1. Patchy air space disease on the left lower lobe. 2. Trace pneumo mediastinum and pneumothorax. Leonel Haynes MD FACR PE at Discharge Gen: Sitting in bed, appears comfortable, no distress. Skin: No obvious rashes or bruises. No evidence of track marin or splinter hemorrhages. CV: NRRR without murmurs. Resp: Mild expiratory wheezing bilaterally, no distress Extremities: No cyanosis or edema. 2+ pulses in upper and lower extremity bilaterally. Psych: Sitting in bed, has normal insight currently, no suicidal ideation Transfer Summary Opioid abuser admitted for respiratory failure secondary to pneumonia, opioid use. Placed in ICU, intubated on 09/01 due to worsening respiratory distress. Extubated 09/02 and gradually weaned off BiPAP. Stabilized for transfer to floor on 09/03. For pneumonia was placed on broad spectrum antibiotics Aztreonam and Flagyl since admission to cover for aspiration organisms. Completed 5 days with this treatment and will finish with additional 2 days of clindamycin PO to complete 7 day course. Regarding respiratory failure, CTA showed pneumomediastinum and pneumothorax, neither of which were noted on CT and patient improved clinically. Echo showed no concern for vegetations. Opioid withdrawal symptoms managed with clonidine, Ativan, methadone. Patient would benefit from opioid maintenance therapy. Due to stable respiratory status and withdrawal symptoms, patient cleared for discharge with outpatient follow up. Provided resources for local addiction treatment programs. Pt Condition on Discharge: Stable Discharge Disposition: Discharge Home Discharge Instructions DIET: Follow Instructions for: As Tolerated, No Restrictions Activities you can perform: Regular-No Restrictions Follow up Referrals: Physician - 1 Week New Medications: Clindamycin (Clindamycin) 300 Mg Cap 300 MG PO TID Infection #6 Ref 0 CAP Ibuprofen (Ibuprofen) 800 Mg Tab 800 MG PO Q8H PRN Pain/Inflammation #60 Ref 0 TAB Lorazepam (Lorazepam) 1 Mg Tab 1 MG PO Q4H PRN for severe anxiety or dyspnea #30 Ref 0 TAB Oxycodone-Acetaminophen (Percocet) 10-325 mg Tab 1 TAB PO Q6H PRN PAIN #4 Ref 0 TAB Clonidine (Catapres) 0.2 Mg Tab 0.2 MG PO Q8HR #90 TAB Gabapentin (Neurontin) 300 Mg Cap 300 MG PO TID #90 CAP Lisinopril (Lisinopril) 10 Mg Tab 10 MG PO DAILY #30 TAB Continued Medications: Norethindrone Acetate (Aygestin) 5 Mg Tab 5 MG PO DAILY #15 Vik Eaton MD R1 Sep 06, 2016 4:56 pm
== END 2016-09-06 10:14 | disposition home or self-care (01) | DRG 871 ==
LOC: NEPA 09:22 → NEDA 12:55 → HIMN 14:45 → HOCA 09-04 16:59
PROVIDERS: ADMIT Family Medicine; ATTEND Family Medicine
PROC: 0BH17EZ Insertion of Endotracheal Airway into Trachea, Via Natural or Artificial Opening (ICD-10-PCS; principal; 2016-08-31)
PROC: 5A1935Z Respiratory Ventilation, Less than 24 Consecutive Hours (ICD-10-PCS; 2016-08-31)
PROC: 05H533Z Insertion of Infusion Device into Right Subclavian Vein, Percutaneous Approach (ICD-10-PCS; 2016-08-31)
PROC: 5A09457 Assistance with Respiratory Ventilation, 24-96 Consecutive Hours, Continuous Positive Airway Pressure (ICD-10-PCS; 2016-08-31)
DX: A41.9 Sepsis, unspecified organism (principal); J96.01 Acute respiratory failure with hypoxia; J69.0 Pneumonitis due to inhalation of food and vomit; E87.2 Acidosis; J98.2 Interstitial emphysema; J96.02 Acute respiratory failure with hypercapnia; N17.9 Acute kidney failure, unspecified; J45.901 Unspecified asthma with (acute) exacerbation; J93.9 Pneumothorax, unspecified; F11.23 Opioid dependence with withdrawal; E87.6 Hypokalemia; I10 Essential (primary) hypertension; F14.10 Cocaine abuse, uncomplicated; F17.290 Nicotine dependence, other tobacco product, uncomplicated; D64.9 Anemia, unspecified; Z88.0 Allergy status to penicillin
CPT/HCPCS: 31500; 36556; 36600; 51702; 71010; 71275; 76937; 80048; 80053; 80185; 80202; 80307; 81001; 82040; 82550; 82552; 82805; 82948; 83605; 83735; 83880; 84100; 84132; 84484; 85007; 85025; 85027; 87040; 87070; 87086; 87205; 87641; 93005; 93306; 94002; 94003; 94150; 94640; 94664; 95819; 96365; 96375; C9113; J0360; J0456; J0696; J1170; J1630; J1650; J1885; J1940; J1956; J2060; J2250; J2270; J2405; J2920; J2930; J3010; J3370; J3480; J7030; J7050; J7512; Q2009; Q9967